=== PATIENT | male | born 1940 | race Caucasian/White ===

== ENCOUNTER 2018-11-03 14:56 | Emergency (ER) | payer MEDICARE ==
--- OUTSIDE RECORDS SUMMARY | 2018-11-03 15:11 | XMS REPORT | Continuity of Care Document ---
:1940 External Reference #:[id number] Author Name Taty Hernandez Care Team Providers Name Role Phone Kraig Donovan MD Primary Care Physician Unavailable Payers Type Date Identification Numbers Payment Provider Subscriber Policy Number: [id number] Medicare Eyal Pizarro PayID: [id number] [address] [place] [address] Policy Number: [id number] [facility] Eyal Pizarro PayID: [id number] [facility] [address] [place] [address] Expires: 2018 Policy Number: [id number] Medicare Eyal Pizarro PayID: [id number] [address] [place] [address] Expires: 2018 Policy Number: [id number] [employer] Eyal Pizarro Group Name: [id number] [address] [address] PayID: [id number] Attn: [place] [address] Expires: 2014 Policy Number: [id number] [employer] Eyal Pizarro Group Number: [id number] [address] [address] PayID: [id number] [place] [address] Effective: 2005 PayID: [id number] Medicare Eyal Pizarro Expires: 2016 [address] [place] [address] Advance Directives Type Date Description Status Comment Other Directive 09/08/2016 Health Care Proxy Current and Verified Problems Date Description Provider Status Onset: 04/21/2011 Atresia and stenosis of aorta Kraig D. 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 Active Onset: 04/15/2010 Aortic valve disorder Kraig Donovan Inactive Katrina,FACP Inactive: 05/17/2013 Onset: 02/14/2008 Disorder of shoulder Kraig Donovan M.D.,FACP Inactive Inactive: 05/17/2013 Onset: 02/14/2008 Carotid artery occlusion Kraig Donovan M.D.,FACP Inactive Inactive: 05/19/2015 Onset: 04/24/2012 Hypercalcemia Kraig Donovan M.D.,FACP Inactive Inactive: 05/19/2015 Onset: 07/16/2015 Strain of muscle(s) and tendon(s) of the Vivek Pedersen M.D. Inactive rotator cuff of right shoulder, subsequent encounter Inactive: 06/03/2016 Onset: 09/20/2017 Pain in limb Ricardo Weaver M.D. Inactive Inactive: 05/21/2018 Onset: 08/15/2012 Carpal tunnel syndrome Elly George N.P. Resolved Resolved: 05/17/2013 Onset: 06/29/2015 Late effect of open wound of extremities Vivek Pedersen M.D. Resolved without tendon injury Resolved: 05/21/2018 Family History Date Family Member(s) Problem(s) Comments General Diabetes General Heart Disease Onset: (age 48 Years) Father Heart Disease : (age 61 Years) Father due to Heart Disease : (age 95 Years) Mother due to Heart Disease Siblings 4 3 now Second Brother Diabetes, Non Insulin Dependent : (age 51 Years) Second Brother due to Motor Vehicle Accident Social History Type Date Description Comments Sex Unknown Marital Status Patient is retired from [employer]. Lives With Occupation Retired Cigarette Use Quit 40 Years Ago Pt denies ever smoking a pipe, cigars, or e-cigarettes. Pt denies ever using chewing tobacco. ETOH Use Denies alcohol use Recreational Drug Use Denies Drug Use Tobacco Use Start: Unknown End: Patient is a former quit in 1967 1ppd Unknown smoker Smoking Status Reviewed: 10/26/18 Patient is a former quit in 1967 1ppd smoker Exercise Type/Frequency Exercises sporadically Allergies, Adverse Reactions, Alerts Date Description Reaction Status Severity Comments 02/13/2008 Bee Stings Anaphylaxis Active Severe 02/13/2008 Sudafed Urticaria Active Severe urinary hesitancy Medications Medication Date Status Form Strength Qnty SIG Indications Ordering Provider Trazodone HCL 10/17 Active Tablets 50mg 30tab /2 till s tablet at Sorenson, bedtime as MAlex needed Shingrix 05/21 Active Suspension 50mcg 2unit 0.5 Rec s milliliters lennie Sousa M.D.,FACP now and 2-3 months later repeat Mobic 11/23 Active Tablets 15mg 90tab take 1 tablet s every day Clayton Donovan M.D.,FACBeth Epipen 2-Fredi 06/03 Active Solution 0.3mg/0.3 2unit use as Z91.030 Auto-Inject ML s directed Clayton Donovan M.D.,FACP Atorvastatin 06/02 Active Tablets 40mg 90tab 1 by mouth s every day Clayton Donovan M.D.,[facility] Flomax 05/19 Active Capsules 0.4mg 90cap take 1 N40.0 s capsule every Clayton Donovan, day M.DYuniel,[facility] Aspirin 04/15 Active Tablets 81mg 2 po qd Clayton Donovan M.D.,[facility] Vitamin D3 Active Capsules 1000Unit 1 by mouth Unknown High Potency / every day Vitamin B12 Active 5000mcg 1 tablet po Unknown daily Vitamin C Active Tablets 500mg 1 by mouth Unknown every day Percocet 09/27 Hx Tablets 5-325mg 10tab 1 tab by Ann s mouth 3 times Sorenson, - a day as M.D. 10/14 needed for severe pain Fluticasone 07/23 Hx Suspension 50mcg/Act 16uni 2 sprays each J30.89 Evangelist ts nostril qd. ANDERS Li - 09/27 Prednisone 08/10 Hx Tablets 50mg 3tabs 1 tab po 7, and 1 hr Clayton Donovan, - prior to CT M.DYuniel,[facility] 05/21 Benadryl 08/10 Hx Capsules 25mg 2 tabs [address] Clayton Donovan, - M.D.,[facility] 07/23 Tylenol 07/14 Hx Tablets 325mg 120ta 2 tablets bs every 4 hours ANDERS Li - as needed 07/23 pain (pt taking 650mg) Voltaren 03/15 Hx Gel 1% 300gm apply 4 grams M79.604 Evangelist of gel twice ANDERS Li - daily to the 07/14 affected areas for 7 days. Miralax 10/14 Hx Powder 3350NF 510un 17 gm every its day mixed w/ Clayton Donovan, - 8 oz M.D.,FACP 07/23 water/juice Prednisone 06/01 Hx Tablets 10mg 4 tabs tomorrow, - then decrease 06/08 by until stopped. Medrol 04/12 Hx Tablets 4mg 1pak medrol dosepack as Clayton Donovan, - directed Katrina,[facility] 06/03 Diclofenac-Mis 10/[address] 75-0.2mg 30tab 1 tab by S46.021A Francheska oprostol s mouth twice a Yaseen, - day with food MD 06/03 Mobic 10/27 Hx Tablets 15mg 60tab 1 by mouth s every day ( Clayton Donovna, - pt does not M.DYuniel,[facility] 07/19 take) Ciprofloxacin 09/28 Hx Tablets 500mg 1 tab by Unknown mouth twice a - day x 10 days 10/08 Metronidazole 09/28 Hx Tablets 500mg one tablet by Unknown mouth 3 times - daily for 10 Vitamin B 12 05/25 Hx Lozenges 250mcg by mouth every day ( Clayton Donovan, - taking 500mcg M.D.,[facility] 09/19 daily) Gabapentin 05/19 Hx Capsules 100mg 180ca 2 tab by ps mouth every Clayton Donovan, - night at M.D.,[facility] 11/20 bedtime, increase to 3 tabs every night at bedtime if not effective Fluticasone 09/01 Hx Suspension 50mcg/Act 1bott 1 spray each 477.9 le nostril in in Clayton Donovan, - the morning M.DYuniel,[facility] 10/14 Zyrtec Allergy 09/01 Hx Tablets 10mg 90tab 1 tab every 477.9 s day as needed Toni Sousa M.D.,[facility] 10/14 Medrol Dosepak 05/22 Hx Tablets 4mg 1Pak as directed Toni Sousa M.D.,[facility] 05/22 Medrol (Fredi) 05/22 Hx Tablets 4mg 1tabs as directed Toni Sousa M.D.,[facility] 09/01 Voltaren 11/14 Hx Gel 1% 100g apply 2 gms 719.44 to affected Clayton Donovan, - area bid prn Katrina,[facility] 05/19 Medrol Dosepak 05/30 Hx Tablets 4mg 1Pak as directed Toni Sousa M.D.,[facility] 11/14 Levitra 05/17 Hx Tablets 20mg 12tab 1 tablet po 607.84 s qd prn Toni Sousa M.D.,[facility] 01/22 Prednisone 05/18 Hx Tablets 10mg 50tab 6 tabs qd for s 2 days, then Clayton Donovan, - reduce by 1 MAlex,[facility] 08/15 tab every days until finished Nystatin/Triam 04/24 Hx Ointment 191536-5. 60g topical bid 692.89 1Unit/GM- prn Clayton Donovan - % Katrina,[facility] 08/15 Medrol Dosepak 04/17 Hx Tablets 4mg 1Pak as directed Toni Sousa M.D.,[facility] 04/24 Cialis 09/07 Hx Tablets 10mg 10tab qd prn 607.84 s Toni Sousa M.D.,[facility] 05/17 Simvastatin 04/21 Hx Tablets 10mg 90tab take 1 tablet 272.0 s daily at [facility], - bedtime 06/23 Celebrex 04/01 Hx Capsules 200mg po bid Toni Sousa M.D.,[facility] 04/21 Simcor 04/15 Hx Tablets ER 500-20mg 90tab 1 po qpm 272.0 24HR Toni Amanda M.D.,[facility] 04/21 Cialis 02/13 Hx Tablets 10mg 10tab qd prn s Toni Sousa M.D.,[facility] 04/21 Bactroban 02/13 Hx Ointment 2% 30G qd for 1 wk,then prn Toni Sousa M.D.,[facility] 04/21 Slo-Niacin 02/12 Hx Tablets ER 500mg 1 PO qd Toni Sousa M.D.,[facility] 04/15 Lovastatin Hx Tablets 40mg 30tab 1 tablet po 272.0 Kraig / s qhs Toni Sousa M.D.,[facility] 04/15 Asa 00/ Hx 81mg 90uni 2 PO qd Unknown /0000 ts - 04/15 Calcium-Vitami Hx Tablets 600-800 1 tab daily Unknown n D3 / - 11/14 Glucosamine/Ch Hx Capsules 900mg 2 PO qd Unknown ondroitin / - 06/09 Epipen Hx Device 1:1000 1unit one injection s as needed Toni Sousa M.D.,[facility] 09/08 Multivitamins 00/ Hx Tablets 90tab 1 PO qd Unknown /0000 s - 05/17 Slo-Niacin Hx Tablets ER 500mg po qday Unknown / - 08/11 Fish Oil Hx Capsules 700mg 2 po qd Unknown /0000 - 10/09 Vitamin D3 00/ Hx Tablets 2000Unit daily Unknown Super Strength / - 05/19 Vitamin C Hx Tablets 500mg 90tab 1 by mouth Unknown / s every day - 05/15 Vitamin E 00/00 Hx 1 cap po Unknown /0000 daily - 06/03 Glucosamine / Hx 1 tab po Unknown Chondroitin /0000 daily - 10/09 Ibuprofen PM 00 Hx Tablets 200-38mg 1 po qhs Unknown /0000 - 06/03 Polyethylene 00/ Hx Powder 3350NF 17gm powder Unknown Glycol 3350 /0000 with 4 ounces - water or 10/05 juice daily /2014 Potassium Hx Tablets 99mg otc once a Unknown / day - 07/14 Arthritis Pain Hx Tablets ER 650mg prn Unknown /0000 - 07/23 Acetaminophen- Hx Tablets 300-30mg 2 q 4hours Unknown Codeine #3 /0000 currenlty---- - Take 1 Tablet 10/14 By Mouth Times Daily as Needed Maximum Daily Dose Of 4 Per Day Acetaminophen- 00 Hx Tablets 300-30mg Take 1 Tablet Unknown Codeine #3 /0000 By Mouth Four - Times Daily 10/14 as Needed Maximum Daily Dose Of 4 Per Day Medications Administered in Office Medication Date Status Form Strength Qnty SIG Indications Ordering Provider Triamcinolone 07/20/ Administered Injection Zaneb (Kenalog) 2016 MD Yessenia Triamcinolone 10/27/ Administered Injection Zaneb (Kenalog) 2015 MD Yessenia Depomedrol 80MG 07/16/ Administered Injection Vivek 2014 Katrina Pederesn Technetium TC 06/23/ Administered Injection Jerrell S. 99M Tetrofosmin, 2014 DO Nilay Per Unit Dose Up FACC To 40 Millicuries Depomedrol 80MG 02/23/ Administered Injection Vivek 2014 Katrina Pedersen Immunizations CPT Code Status Date Vaccine Lot # [id number] Given 08/03/2018 Fluzone High Dose 15916 Given 06/23/2018 Zoster (Shingles) Vaccine (HZV), Recombinant, Subunit, Adjuvanted 91280 Given 07/28/2017 Influenza Virus Vaccine, Quadrivalent, Split, Preservative Free 01291 Given 05/15/2016 Fluzone High Dose 97299 Given 08/23/2015 Fluzone High Dose 51368 Given 05/19/2015 Pneumococcal Conjugate Vaccine 13 Valent For [id number] Intramuscular Use 41198 Given 07/30/2014 Flu Vaccine Split Virus Preservative Free For Indiv 3Yr Older Q2037 Given 05/30/2013 Fluvirin Im 3Yrs And Older 94142 Given 08/19/2012 Influenza Virus 3Yrs & Over 92301 Given 03/06/2012 Tdap - Tetanus/Diptheria/Acellular Pertussis [id number] Q2035 Given 08/11/2011 Afluria Vaccine 56804 Given 03/12/2009 Zoster (Zostavax) [id number] 77022 Given 07/28/2005 Pneumonia Vaccine Vital Signs Date Vital Result Comment 10/26/2018 10:59am Height 70.75 inches 5'10.75" Weight 172.00 lb Heart Rate 62 /min BP Systolic Sitting 120 mmHg Lue reg cuff BP Diastolic Sitting 65 mmHg Lue reg cuff BP Systolic Standing 115 mmHg Lue reg cuff BP Diastolic Standing 65 mmHg Lue reg cuff O2 % BldC Oximetry 100 % BMI (Body Mass Index) 24.2 kg/m2 10/16/2018 12:02pm Height 70.75 inches 5'10.75" Weight 172.00 lb Heart Rate 69 /min BP Systolic Sitting 128 mmHg BP Diastolic Sitting 60 mmHg O2 % BldC Oximetry 96 % BMI (Body Mass Index) 24.2 kg/m2 10/15/2018 2:38pm Height 70.75 inches 5'10.75" Weight 171.00 lb with shoes Heart Rate 76 /min BP Systolic 120 mmHg Lue BP Diastolic 68 mmHg Lue BMI (Body Mass Index) 24.0 kg/m2 Ejection Fraction >65% 11/28/17 ECHO 09/27/2018 1:23pm Height 70.75 inches 5'10.75" Weight 175.00 lb Heart Rate 64 /min BP Systolic Sitting 110 mmHg BP Diastolic Sitting 68 mmHg Pain Level 9 O2 % BldC Oximetry 93 % BMI (Body Mass Index) 24.6 kg/m2 07/23/2018 4:26pm Height 70.75 inches 5'10.75" Weight 180.50 lb Heart Rate 74 /min BP Systolic 90 mmHg BP Diastolic 58 mmHg BP Systolic Sitting 122 mmHg BP Diastolic Sitting 70 mmHg BP Systolic Standing 100 mmHg BP Diastolic Standing 60 mmHg BP Systolic Lying Down 122 mmHg BP Diastolic Lying Down 74 mmHg Body Temperature 97.2 F O2 % BldC Oximetry 93 % BMI (Body Mass Index) 25.4 kg/m2 05/21/2018 12:54pm Height 70.75 inches 5'10.75" Weight 180.00 lb Heart Rate 79 /min BP Systolic Sitting 110 mmHg BP Diastolic Sitting 68 mmHg Body Temperature 96.4 F O2 % BldC Oximetry 94 % BMI (Body Mass Index) 25.3 kg/m2 03/12/2018 10:38am Height 70 inches 5'10" Weight 184.75 lb Heart Rate 64 /min BP Systolic 110 mmHg BP Diastolic 58 mmHg Respiratory Rate 20 /min Body Temperature 97.0 F Pain Level 0 BMI (Body Mass Index) 26.5 kg/m2 02/06/2018 9:26am Weight 183.00 lb Heart Rate 60 /min BP Systolic 106 mmHg BP Diastolic 62 mmHg Body Temperature 97.2 F O2 % BldC Oximetry 95 % 12/18/2017 9:02am Weight 183.25 lb Heart Rate 59 /min BP Systolic 100 mmHg BP Diastolic 60 mmHg Body Temperature 96.6 F O2 % BldC Oximetry 92 % 10/20/2017 1:29pm Height 70 inches 5'10" Weight 183.00 lb with shoes Heart Rate 80 /min BP Systolic Sitting 124 mmHg Lue reg cuff BP Diastolic Sitting 60 mmHg Lue reg cuff BP Systolic Standing 120 mmHg Lue regcuff BP Diastolic Standing 66 mmHg Lue regcuff Respiratory Rate 16 /min BMI (Body Mass Index) 26.3 kg/m2 Ejection Fraction 65-70% date 07/14/2016 09/20/2017 2:09pm Height 70 inches 5'10" Weight 183.25 lb with out shoes Heart Rate 66 /min BP Systolic Sitting 110 mmHg Rue reg cuff BP Diastolic Sitting 60 mmHg Rue reg cuff Respiratory Rate 17 /min BMI (Body Mass Index) 26.3 kg/m2 Ejection Fraction 65-70% date 07/14/2016 echo 07/20/2017 10:38am Height 70 inches 5'10" Weight 189.00 lb Heart Rate 70 /min BP Systolic 102 mmHg BP Diastolic 54 mmHg BMI (Body Mass Index) 27.1 kg/m2 07/14/2017 9:08am Weight 188.00 lb Heart Rate 60 /min BP Systolic Sitting 126 mmHg BP Diastolic Sitting 72 mmHg Pain Level 6 legs O2 % BldC Oximetry 96 % 05/15/2017 12:55pm Height 71 inches 5'11" Weight 186.25 lb Heart Rate 69 /min BP Systolic Sitting 114 mmHg BP Diastolic Sitting 60 mmHg Body Temperature 97.1 F O2 % BldC Oximetry 97 % BMI (Body Mass Index) 26.0 kg/m2 03/15/2017 3:22pm Weight 190.00 lb Heart Rate 64 /min BP Systolic Sitting 104 mmHg BP Diastolic Sitting 60 mmHg Pain Level 8 R hamstring when moving (3-4 otherwise) O2 % BldC Oximetry 95 % 03/07/2017 11:47am Weight 191.00 lb Heart Rate 70 /min BP Systolic Sitting 122 mmHg BP Diastolic Sitting 84 mmHg Respiratory Rate 15 /min Body Temperature 97.0 F O2 % BldC Oximetry 98 % 10/20/2016 11:28am Weight 190.00 lb w/o shoes Heart Rate 67 /min BP Systolic Sitting 106 mmHg Ra lrg cuff BP Diastolic Sitting 70 mmHg Ra lrg cuff BP Systolic Standing 98 mmHg Ra lrg cuff BP Diastolic Standing 66 mmHg Ra lrg cuff Ejection Fraction 65% -70% echo 07/14/16 10/14/2016 3:29pm Weight 188.25 lb Heart Rate 68 /min BP Systolic Sitting 118 mmHg BP Diastolic Sitting 60 mmHg Body Temperature 97.2 F O2 % BldC Oximetry 96 % 09/08/2016 11:57am Weight 191.50 lb Heart Rate 73 /min BP Systolic Sitting 130 mmHg BP Diastolic Sitting 62 mmHg Body Temperature 96.9 F O2 % BldC Oximetry 95 % 08/23/2016 1:51pm Height 70 inches 5'10" Weight 194.00 lb Pain Level 2 BMI (Body Mass Index) 27.8 kg/m2 07/19/2016 9:45am Height 70 inches 5'10" Weight 192.00 lb with shoes Heart Rate 64 /min BP Systolic Sitting 124 mmHg Ra reg cuff BP Diastolic Sitting 60 mmHg Ra reg cuff BP Systolic Standing 122 mmHg Ra reg cuff BP Diastolic Standing 64 mmHg Ra reg cuff Respiratory Rate 16 /min BMI (Body Mass Index) 27.5 kg/m2 Ejection Fraction 65-70% date: 07/14/16 ECHO 06/03/2016 2:19pm Height 70 inches 5'10" Weight 187.38 lb Heart Rate 76 /min BP Systolic Sitting 128 mmHg BP Diastolic Sitting 74 mmHg Body Temperature 98.3 F O2 % BldC Oximetry 95 % BMI (Body Mass Index) 26.9 kg/m2 11/20/2015 2:50pm Height 70.5 inches 5'10.50" Weight 185.50 lb Heart Rate 75 /min BP Systolic Sitting 110 mmHg BP Diastolic Sitting 66 mmHg Body Temperature 97.1 F O2 % BldC Oximetry 98 % BMI (Body Mass Index) 26.2 kg/m2 10/27/2015 11:09am Height 70.5 inches 5'10.50" Weight 192.00 lb Heart Rate 76 /min BP Systolic Sitting 107 mmHg BP Diastolic Sitting 60 mmHg Respiratory Rate 16 /min Pain Level 3 BMI (Body Mass Index) 27.2 kg/m2 10/05/2015 1:50pm Height 70.5 inches 5'10.50" Weight 192.00 lb Heart Rate 74 /min BP Systolic Sitting 132 mmHg BP Diastolic Sitting 78 mmHg Body Temperature 96.4 F O2 % BldC Oximetry 98 % BMI (Body Mass Index) 27.2 kg/m2 08/13/2015 1:33pm Height 70 inches 5'10" Weight 186.00 lb Pain Level 1 BMI (Body Mass Index) 26.7 kg/m2 07/17/2015 2:03pm Height 70 inches 5'10" Weight 189.00 lb Heart Rate 68 /min BP Systolic Sitting 126 mmHg left arm, reg cuff BP Diastolic Sitting 74 mmHg left arm, reg cuff BP Systolic Standing 124 mmHg left arm, reg cuff BP Diastolic Standing 78 mmHg left arm, reg cuff Respiratory Rate 16 /min BMI (Body Mass Index) 27.1 kg/m2 Ejection Fraction 60-65% 06/03/15 07/16/2015 11:03am Height 70 inches 5'10" Weight 186.00 lb Pain Level 2 BMI (Body Mass Index) 26.7 kg/m2 07/07/2015 2:23pm Height 70 inches 5'10" Weight 187.00 lb Heart Rate 68 /min 76 BP Systolic Sitting 110 mmHg right arm, reg cuff BP Diastolic Sitting 74 mmHg right arm, reg cuff BP Systolic Standing 96 mmHg right arm, reg cuff BP Diastolic Standing 68 mmHg right arm, reg cuff Respiratory Rate 20 /min BMI (Body Mass Index) 26.8 kg/m2 Ejection Fraction 60-65% 06/03/15 07/06/2015 10:37am Height 70 inches 5'10" Weight 185.00 lb Heart Rate 64 /min BP Systolic Sitting 100 mmHg BP Diastolic Sitting 60 mmHg Respiratory Rate 16 /min BMI (Body Mass Index) 26.5 kg/m2 07/02/2015 2:11pm Height 70 inches 5'10" Weight 185.00 lb w/o shoes Heart Rate 78 /min reg BP Systolic Sitting 120 mmHg Lue, reg cuff BP Diastolic Sitting 76 mmHg Lue, reg cuff BP Systolic Standing 126 mmHg Lue BP Diastolic Standing 74 mmHg Lue Respiratory Rate 18 /min BMI (Body Mass Index) 26.5 kg/m2 Ejection Fraction 60-65% as of 06/03/15 echo 06/29/2015 11:00am Height 70 inches 5'10" Weight 186.00 lb Pain Level 3 BMI (Body Mass Index) 26.7 kg/m2 06/24/2015 3:44pm Height 70 inches 5'10" Weight 186.00 lb w/o shoes Heart Rate 62 /min reg BP Systolic Sitting 116 mmHg Rue, reg cuff BP Diastolic Sitting 72 mmHg Rue, reg cuff BP Systolic Standing 114 mmHg Rue BP Diastolic Standing 66 mmHg Rue Respiratory Rate 18 /min O2 % BldC Oximetry 97 % on Ra BMI (Body Mass Index) 26.7 kg/m2 Ejection Fraction 60-65% as of 06/03/15 echo 06/02/2015 10:31am Height 70 inches 5'10" Weight 186.00 lb w/o shoes Heart Rate 64 /min reg BP Systolic 114 mmHg Rue, reg cuff BP Diastolic 70 mmHg Rue, reg cuff BP Systolic Sitting 122 mmHg Lue, reg cuff BP Diastolic Sitting 60 mmHg Lue, reg cuff BP Systolic Standing 124 mmHg Lue BP Diastolic Standing 66 mmHg Lue Respiratory Rate 18 /min BMI (Body Mass Index) 26.7 kg/m2 05/19/2015 11:26am Height 71 inches 5'11" Weight 186.00 lb Heart Rate 66 /min BP Systolic Sitting 126 mmHg BP Diastolic Sitting 80 mmHg O2 % BldC Oximetry 94 % BMI (Body Mass Index) 25.9 kg/m2 05/14/2015 9:26am Height 71 inches 5'11" Weight 180.00 lb Pain Level 3 8 at night BMI (Body Mass Index) 25.1 kg/m2 02/23/2015 11:40am Height 71 inches 5'11" Weight 180.00 lb Pain Level 5 BMI (Body Mass Index) 25.1 kg/m2 09/01/2014 1:20pm Weight 177.50 lb Heart Rate 66 /min BP Systolic Sitting 126 mmHg BP Diastolic Sitting 70 mmHg Body Temperature 97.4 F O2 % BldC Oximetry 93 % 06/10/2014 9:32am Height 71 inches 5'11" Weight 179.00 lb Heart Rate 63 /min BP Systolic 98 mmHg BP Diastolic 58 mmHg BMI (Body Mass Index) 25.0 kg/m2 05/19/2014 9:31am Height 71 inches 5'11" Weight 179.50 lb Heart Rate 72 /min BP Systolic Sitting 122 mmHg BP Diastolic Sitting 58 mmHg Body Temperature 96.8 F BMI (Body Mass Index) 25.0 kg/m2 01/22/2014 11:32am Weight 186.50 lb Heart Rate 60 /min BP Systolic Sitting 134 mmHg BP Diastolic Sitting 72 mmHg 11/14/2013 3:43pm Height 71 inches 5'11" Weight 186.50 lb Heart Rate 64 /min BP Systolic Sitting 112 mmHg BP Diastolic Sitting 70 mmHg BMI (Body Mass Index) 26.0 kg/m2 05/17/2013 12:56pm Height 71 inches 5'11" Weight 190.50 lb Heart Rate 76 /min BP Systolic Sitting 118 mmHg BP Diastolic Sitting 64 mmHg BMI (Body Mass Index) 26.6 kg/m2 11/19/2012 3:28pm Height 71 inches 5'11" Weight 191.75 lb Heart Rate 78 /min BP Systolic Sitting 130 mmHg BP Diastolic Sitting 78 mmHg BMI (Body Mass Index) 26.7 kg/m2 08/15/2012 1:35pm Height 71 inches 5'11" Weight 191.00 lb Heart Rate 60 /min BP Systolic Sitting 116 mmHg BP Diastolic Sitting 72 mmHg Respiratory Rate 16 /min Body Temperature 97.5 F lt ear BMI (Body Mass Index) 26.6 kg/m2 04/24/2012 9:25am Height 71 inches 5'11" Weight 184.00 lb Heart Rate 66 /min BP Systolic Sitting 118 mmHg BP Diastolic Sitting 78 mmHg Respiratory Rate 14 /min Body Temperature 96.6 F lt ear BMI (Body Mass Index) 25.7 kg/m2 03/06/2012 7:59am Height 71 inches 5'11" Weight 185.00 lb Heart Rate 68 /min BP Systolic Sitting 112 mmHg BP Diastolic Sitting 68 mmHg BMI (Body Mass Index) 25.8 kg/m2 09/07/2011 11:06am Height 71 inches 5'11" Weight 187.00 lb Heart Rate 72 /min BP Systolic Sitting 124 mmHg BP Diastolic Sitting 68 mmHg BMI (Body Mass Index) 26.1 kg/m2 08/11/2011 1:03pm Height 71 inches 5'11" Weight 185.00 lb Heart Rate 68 /min BP Systolic Sitting 130 mmHg BP Diastolic Sitting 70 mmHg BMI (Body Mass Index) 25.8 kg/m2 04/21/2011 2:12pm Height 71 inches 5'11" Weight 183.00 lb Heart Rate 68 /min BP Systolic 106 mmHg BP Diastolic 60 mmHg BMI (Body Mass Index) 25.5 kg/m2 01/11/2011 9:29am Weight 190.00 lb Heart Rate 68 /min BP Systolic Sitting 116 mmHg BP Diastolic Sitting 60 mmHg 04/15/2010 9:05am Weight 179.00 lb Heart Rate 74 /min BP Systolic Sitting 114 mmHg BP Diastolic Sitting 64 mmHg 03/06/2009 1:03pm Weight 187.00 lb Heart Rate 64 /min BP Systolic Sitting 132 mmHg BP Diastolic Sitting 84 mmHg 02/14/2008 9:06am Height 70.5 inches 5'10.50" Weight 182.00 lb Heart Rate 70 /min BP Systolic Sitting 112 mmHg BP Diastolic Sitting 60 mmHg BMI (Body Mass Index) 25.7 kg/m2 Results Test Date Facility Test Result H/L Range Note Laboratory test 10/16/2018 [facility] PTH Related 0.5 pmol/L <2.0 [address] [place] [address] [phone] CBC Auto Diff 10/16/2018 [facility] White Blood 5.0 10^3/uL N 3.5-10.[address] [place] [address] [phone] Red Blood Count 4.01 10^6/uL N 4.00-5.40 Hemoglobin 13.3 g/dL Low 14.0-18.0 Hematocrit 38 % Low 42-52 Mean Corpuscular Volume 95 fL High 80-94 Mean Corpuscular Hemoglobin 33 pg High 27-31 Mean Corpuscular HGB Conc 35 g/dL N 31-36 Red Cell Distribution Width 12 % N 10.5-15 Platelet Count 216 10^3/uL N 150-450 Mean Platelet Volume 8.1 fL N 7.4-10.4 Abs Neutrophils 2.5 10^3/uL N 1.5-7.7 Abs Lymphocytes 1.4 10^3/uL N 1.0-4.8 Abs Monocytes 0.9 10^3/uL High 0-0.8 Abs Eosinophils 0.2 10^3/uL N 0-0.6 Abs Basophils 0 10^3/uL N 0-0.2 Abs Nucleated RBC 0 10^3/uL Granulocyte % 50.6 % Lymphocyte % 28.7 % Monocyte % 17.1 % Eosinophil % 3.1 % Basophil % 0.5 % Nucleated Red Blood Cells % 0.1 Comp Metabolic Panel 10/16/2018 [facility] Sodium 139 mmol/L N 135-[address] [place] [address] [phone] Potassium 4.4 mmol/L N 3.5-5.0 Chloride 107 mmol/L N 101-111 Co2 Carbon Dioxide 28 mmol/L N 22-32 Anion Gap 4 mmol/L N 2-11 Glucose 89 mg/dL N 70-100 Blood Urea Nitrogen 21 mg/dL N 6-24 Creatinine 0.77 mg/dL N 0.67-1.17 BUN/Creatinine Ratio 27.3 High 8-20 Calcium 11.0 mg/dL High 8.6-10.3 Total Protein 6.7 g/dL N 6.4-8.9 Albumin 4.4 g/dL N 3.2-5.2 Globulin 2.3 g/dL N 2-4 Albumin/Globulin Ratio 1.9 N 1-3 Total Bilirubin 0.50 mg/dL N 0.2-1.0 Alkaline Phosphatase 65 U/L N 34-104 Alt 18 U/L N 7-52 Ast 15 U/L N 13-39 Egfr Non- 97.7 >60 Egfr 118.2 >60 2 Laboratory test 10/16/2018 [facility] C Reactive 1.26 mg/L N < 8.[address] [place] [address] [phone] Troponin-I (TnI) 0.01 ng/mL <0.04 3 TSH (Thyroid Stim Horm) 1.34 mcIU/mL N 0.34-5.60 Vitamin B12 710 pg/mL N 180-914 4 Pthi 10/16/2018 [facility] Calcium (PTH Intact) 11.0 mg/dL High 8.6-10.[address] [place] [address] [phone] PTH Intact 16.3 pmol/L High 1.3-9.3 Inr/Protime 10/16/2018 [facility] Inr 0.94 N 0.77-1.[address] [place] [address] [phone] Protein 10/16/2018 [facility] Total 6.7 g/dL 6.3 - 7.[address] Protein([place] [address] p) [phone] Albumin 3.6 g/dL 3.4-4.7 Alpha-1 Globulin 0.3 g/dL 0.1-0.3 Alpha-2 Globulin 1.1 g/dL Abnormal 0.6-1.0 Beta Globulin 1.0 g/dL 0.7-1.2 Gamma Globulin 0.8 g/dL 0.6-1.6 Albumin/Globulin Ratio 1.15 Impression See Comment 5 Laboratory test 10/16/2018 [facility] Hemoglobin A1c 5.6 % N 4.0-5.6 [address] (Glyco HGB) [place], [place] [id number] [phone] Lactic Acid 0.9 mmol/L N 0.5-2.0 7 Calcium Ionized 1.47 mmol/L High 1.16-1.32 Blood Culture SEE RESULT BELOW 8 CBC Auto Diff 10/15/2018 [facility] White Blood 6.5 10^3/uL N 3.5-10.[address] [place] [address] [phone] Red Blood Count 4.11 10^6/uL N 4.00-5.40 Hemoglobin 13.4 g/dL Low 14.0-18.0 Hematocrit 39 % Low 42-52 Mean Corpuscular Volume 96 fL High 80-94 Mean Corpuscular Hemoglobin 33 pg High 27-31 Mean Corpuscular HGB Conc 34 g/dL N 31-36 Red Cell Distribution Width 12 % N 10.5-15 Platelet Count 240 10^3/uL N 150-450 Mean Platelet Volume 8.2 fL N 7.4-10.4 Abs Neutrophils 3.4 10^3/uL N 1.5-7.7 Abs Lymphocytes 1.5 10^3/uL N 1.0-4.8 Abs Monocytes 1.4 10^3/uL High 0-0.8 Abs Eosinophils 0.2 10^3/uL N 0-0.6 Abs Basophils 0 10^3/uL N 0-0.2 Abs Nucleated RBC 0 10^3/uL Granulocyte % 52.6 % Lymphocyte % 23.5 % Monocyte % 20.9 % Eosinophil % 2.5 % Basophil % 0.5 % Nucleated Red Blood Cells % 0 Laboratory test 10/15/2018 [facility] B-Type 40 pg/mL <=[address] [place] [address] Peptide BNP [phone] Comp Metabolic 10/15/2018 [facility] Sodium 139 mmol/L N 135- [address] [place] [address] [phone] Chloride 106 mmol/L N 101-111 Co2 Carbon Dioxide 29 mmol/L N 22-32 Glucose 100 mg/dL N 70-100 Blood Urea Nitrogen 28 mg/dL High 6-24 Creatinine 0.92 mg/dL N 0.67-1.17 BUN/Creatinine Ratio 30.4 High 8-20 Calcium 11.1 mg/dL High 8.6-10.3 Total Protein 6.4 g/dL N 6.4-8.9 Albumin 4.5 g/dL N 3.2-5.2 Globulin 1.9 g/dL Low 2-4 Albumin/Globulin Ratio 2.4 N 1-3 Total Bilirubin 0.60 mg/dL N 0.2-1.0 Alkaline Phosphatase 68 U/L N 34-104 Alt 17 U/L N 7-52 Ast 14 U/L N 13-39 Egfr Non- 79.6 >60 Egfr 96.3 >60 9 Potassium 5.1 mmol/L High 3.5-5.0 Anion Gap 4 mmol/L N 2-11 Laboratory test 08/03/2018 [facility] Hemoglobin A1c 5.8 % High 4.0-5.6 [address] (Glyco HGB) [place] [address] [phone] CBC Auto Diff 07/24/2018 [facility] White Blood 5.1 N 3.5- 10.[address] Count 10^3/[place] [address] [phone] Red Blood Count 4.09 10^6/uL N 4.00-5.40 Hemoglobin 14.2 g/dL N 14.0-18.0 Hematocrit 41 % Low 42-52 Mean Corpuscular Volume 100 fL High 80-94 Mean Corpuscular Hemoglobin 35 pg High 27-31 Mean Corpuscular HGB Conc 35 g/dL N 31-36 Red Cell Distribution Width 13 % N 10.5-15 Platelet Count 183 10^3/uL N 150-450 Mean Platelet Volume 8.5 um3 N 7.4-10.4 Abs Neutrophils 3.2 10^3/uL N 1.5-7.7 Abs Lymphocytes 1.0 10^3/uL N 1.0-4.8 Abs Monocytes 0.7 10^3/uL N 0-0.8 Abs Eosinophils 0.2 10^3/uL N 0-0.6 Abs Basophils 0 10^3/uL N 0-0.2 Abs Nucleated RBC 0 10^3/uL Granulocyte % 62.5 % N 38-83 Lymphocyte % 19.7 % Low 25-47 Monocyte % 13.7 % High 0-7 Eosinophil % 3.1 % N 0-6 Basophil % 1.0 % N 0-2 Nucleated Red Blood Cells % 0 Comp Metabolic Panel 07/24/2018 [facility] Sodium 138 mmol/L N 135-[address] [place] [address] [phone] Potassium 4.6 mmol/L N 3.5-5.0 Chloride 103 mmol/L N 101-111 Co2 Carbon Dioxide 29 mmol/L N 22-32 Anion Gap 6 mmol/L N 2-11 Glucose 243 mg/dL High 70-100 Blood Urea Nitrogen 21 mg/dL N 6-24 Creatinine 1.05 mg/dL N 0.67-1.17 BUN/Creatinine Ratio 20.0 N 8-20 Calcium 10.4 mg/dL High 8.6-10.3 Total Protein 6.2 g/dL Low 6.4-8.9 Albumin 4.4 g/dL N 3.2-5.2 Globulin 1.8 g/dL Low 2-4 Albumin/Globulin Ratio 2.4 N 1-3 Total Bilirubin 0.70 mg/dL N 0.2-1.0 Alkaline Phosphatase 62 U/L N 34-104 Alt 25 U/L N 7-52 Ast 16 U/L N 13-39 Egfr Non- 68.3 >60 Egfr 82.7 >60 11 Laboratory 07/24/2018 [facility] TSH (Thyroid Stim 2.08 N 0.34 -5.[address] Horm) mcIU/[place] [address] [phone] Lipid Profile 05/17/2018 [facility] Triglycerides 174 mg/dL 12 (Trig/Chol/HDL [address] ) [place] [address] [phone] Cholesterol 176 mg/dL 13 HDL Cholesterol 59.0 mg/dL 14 LDL Cholesterol 82 mg/dL 15 Laboratory test finding 05/17/2018 [facility] Glucose 92 mg/dL N 70-[address] [place] [address] [phone] Vitamin D Total 25(Oh) 26.5 ng/mL N 20-50 17 Vitamin B12 907 pg/mL N 180-914 18 Laboratory test 10/24/2017 [facility] B-Type 38 pg/mL [address] [place] [address] Peptide BNP [phone] CBC Auto Diff 07/14/2017 [facility] White Blood Count 4.9 10^3/ uL N 3.5-[address] 0.8 [place] [address] [phone] Red Blood Count 4.03 10^6/uL N 4.0-5.4 Hemoglobin 13.5 g/dL Low 14.0-18.0 Hematocrit 39 % Low 42-52 Mean Corpuscular Volume 96 fL High 80-94 Mean Corpuscular Hemoglobin 34 pg High 27-31 Mean Corpuscular HGB Conc 35 g/dL N 31-36 Red Cell Distribution Width 12 % N 10.5-15 Platelet Count 191 10^3/uL N 150-450 Mean Platelet Volume 8 um3 N 7.4-10.4 Abs Neutrophils 2.5 10^3/uL N 1.5-7.7 Abs Lymphocytes 1.3 10^3/uL N 1.0-4.8 Abs Monocytes 0.9 10^3/uL High 0-0.8 Abs Eosinophils 0.2 10^3/uL N 0-0.6 Abs Basophils 0.1 10^3/uL N 0-0.2 Abs Nucleated RBC 0 10^3/uL N Granulocyte % 49.9 % N 38-83 Lymphocyte % 26.7 % N 25-47 Monocyte % 18.9 % High 1-9 Eosinophil % 3.4 % N 0-6 Basophil % 1.1 % N 0-2 Nucleated Red Blood Cells % 0 N Laboratory test 07/14/2017 [facility] Creatine 93 U/L N 10- [address] Kinase(CK) [place] [address] [phone] Comp Metabolic 07/14/2017 [facility] Sodium 136 N 133-[address] mmol/[place] [address] [phone] Potassium 4.5 mmol/L N 3.5-5.0 Chloride 103 mmol/L N 101-111 Co2 Carbon Dioxide 27 mmol/L N 22-32 Anion Gap 6 mmol/L N 2-11 Glucose 95 mg/dL N 70-100 Blood Urea Nitrogen 17 mg/dL N 6-24 Creatinine 0.92 mg/dL N 0.67-1.17 BUN/Creatinine Ratio 18.5 N 8-20 Calcium 9.8 mg/dL N 8.6-10.3 Total Protein 6.4 g/dL N 6.4-8.9 Albumin 4.3 g/dL N 3.2-5.2 Globulin 2.1 g/dL N 2-4 Albumin/Globulin Ratio 2.0 N 1-3 Total Bilirubin 0.80 mg/dL N 0.2-1.0 Alkaline Phosphatase 56 U/L N 34-104 Alt 23 U/L N 7-52 Ast 20 U/L N 13-39 Egfr Non- 79.8 N >60 Egfr 102.6 N >60 20 Laboratory test 07/14/2017 [facility] C Reactive 1.48 mg/L N < 5.00 21 finding [address] [facility] [place] [address] [phone] Erythrocyte Sed Rate 17 mm/Hr N 0-40 Lyme Disease Serology Negative N Negative 22 Ferritin 270.0 ng/mL N 24-336 Lipid Profile 05/18/2017 [facility] Triglycerides 108 mg/dL N 23 (Trig/Chol/HDL) [address] [place] [address] [phone] Cholesterol 133 mg/dL N 24 HDL Cholesterol 46.9 mg/dL N 25 LDL Cholesterol 65 mg/dL N 26 Basic Metabolic Panel 05/18/2017 [facility] Sodium 139 mmol/L N 133-145 [address] [place] [address] [phone] Potassium 4.9 mmol/L N 3.5-5.0 Chloride 105 mmol/L N 101-111 Co2 Carbon Dioxide 29 mmol/L N 22-32 Anion Gap 5 mmol/L N 2-11 Glucose 98 mg/dL N 70-100 Blood Urea Nitrogen 21 mg/dL N 6-24 Creatinine 0.95 mg/dL N 0.67-1.17 BUN/Creatinine Ratio 22.1 High 8-20 Calcium 9.7 mg/dL N 8.6-10.3 Egfr Non- 76.9 N >60 Egfr 98.9 N >60 27 Laboratory test 05/18/2017 [facility] Vitamin B12 883 pg/mL N 180-914 28 finding [address] [place] [address] [phone] CKMB 10/03/2016 [facility] CKMB ng/mL 1.7 ng/mL N 0.6-6.3 [address] [place] [address] [phone] Laboratory test 10/03/2016 [facility] Lipase 18 U/L N 11.0- 82.0 finding [address] [place] [address] [phone] Creatine Kinase(CK) 32 U/L N 10-223 Troponin-I (TnI) 0.00 ng/mL N <0.04 29 Myoglobin 37.7 ng/mL N 17.4-105.7 Comp Metabolic Panel 10/03/2016 [facility] Sodium 136 mmol/L N 133-145 [address] [place] [address] [phone] Potassium 4.2 mmol/L N 3.5-5.0 Chloride 103 mmol/L N 101-111 Co2 Carbon Dioxide 27 mmol/L N 22-32 Anion Gap 6 mmol/L N 2-11 Glucose 99 mg/dL N 70-100 Blood Urea Nitrogen 22 mg/dL N 6-24 Creatinine 1.08 mg/dL N 0.67-1.17 BUN/Creatinine Ratio 20.4 High 8-20 Calcium 9.2 mg/dL N 8.6-10.3 Total Protein 6.2 g/dL Low 6.4-8.9 Albumin 4.0 g/dL N 3.2-5.2 Globulin 2.2 g/dL N 2-4 Albumin/Globulin Ratio 1.8 N 1-3 Total Bilirubin 0.80 mg/dL N 0.2-1.0 Alkaline Phosphatase 67 U/L N 34-104 Alt 19 U/L N 7-52 Ast 17 U/L N 13-39 Egfr Non- 66.5 N >60 Egfr 85.5 N >60 30 Laboratory test 10/03/2016 [facility] Partial 29.0 seconds N 26.0-36.3 finding [address] [facility] [place] [address] PTT [phone] Lactic Acid 1.0 mmol/L N 0.5-2.0 31 B-Type Natriuretic Peptide BNP 12 pg/mL N 32 Inr/Protime 10/03/2016 [facility] Inr 1.01 N 0.89-1.[address] [place] [address] [phone] CBC Auto Diff 10/03/2016 [facility] White Blood 4.8 10^3/uL N 3.5-10.[address] [place] [address] [phone] Red Blood Count 4.71 10^6/uL N 4.0-5.4 Hemoglobin 15.3 g/dL N 14.0-18.0 Hematocrit 45 % N 42-52 Mean Corpuscular Volume 94 fL N 80-94 Mean Corpuscular Hemoglobin 33 pg High 27-31 Mean Corpuscular HGB Conc 35 g/dL N 31-36 Red Cell Distribution Width 12 % N 10.5-15 Platelet Count 192 10^3/uL N 150-450 Mean Platelet Volume 8 um3 N 7.4-10.4 Abs Neutrophils 3.2 10^3/uL N 1.5-7.7 Abs Lymphocytes 0.6 10^3/uL Low 1.0-4.8 Abs Monocytes 1.0 10^3/uL High 0-0.8 Abs Eosinophils 0 10^3/uL N 0-0.6 Abs Basophils 0 10^3/uL N 0-0.2 Abs Nucleated RBC 0 10^3/uL N Granulocyte % 66.0 % N 38-83 Lymphocyte % 11.6 % Low 25-47 Monocyte % 21.2 % High 1-9 Eosinophil % 0.9 % N 0-6 Basophil % 0.3 % N 0-2 Nucleated Red Blood Cells % 0 N Stool For Blood 10/03/2016 [facility] Stool Occult Blood SEE RESULT [address] [place] [address] [phone] Laboratory test 10/03/2016 [facility] Troponin-I (TnI) 0.01 ng/ mL N <0.04 [address] [place] [address] [phone] Lipid Profile 05/12/2016 [facility] Triglycerides 152 mg/dL N 35 (Trig/Chol/HDL) [address] [place] [address] [phone] Cholesterol 148 mg/dL N 36 HDL Cholesterol 52.0 mg/dL N 37 LDL Cholesterol 66 mg/dL N 38 Laboratory test 05/12/2016 [facility] Glucose 112 mg/dL High 70-100 39 finding [address] [place] [address] [phone] Comp Metabolic 09/28/2015 [facility] Sodium 138 mmol/L N 133- 145 Panel [address] [place] [address] [phone] Potassium 4.0 mmol/L N 3.5-5.0 Chloride 104 mmol/L N 101-111 Co2 Carbon Dioxide 27 mmol/L N 22-32 Anion Gap 7 mmol/L N 2-11 Glucose 98 mg/dL N 70-100 Blood Urea Nitrogen 12 mg/dL N 6-24 Creatinine 0.91 mg/dL N 0.67-1.17 BUN/Creatinine Ratio 13.2 N 8-20 Calcium 10.5 mg/dL High 8.6-10.3 Total Protein 7.7 g/dL N 6.4-8.9 Albumin 4.7 g/dL N 3.2-5.2 Globulin 3.0 g/dL N 2-4 Albumin/Globulin Ratio 1.6 N 1-3 Total Bilirubin 1.00 mg/dL N 0.2-1.0 Alkaline Phosphatase 69 U/L N 34-104 Alt 42 U/L N 7-52 Ast 19 U/L N 13-39 Egfr Non- 81.2 N >60 Egfr 104.5 N >60 40 Laboratory test 09/28/2015 [facility] Lactic Acid 1.0 mmol/L N 0.5-2.0 41 finding [address] [place] [address] [phone] CBC Auto Diff 09/28/2015 [facility] White Blood 12.7 High 3.5- 10.[address] Count 10^3/[place] [address] [phone] Red Blood Count 4.48 10^6/uL N 4.0-5.4 Hemoglobin 14.9 g/dL N 14.0-18.0 Hematocrit 44 % N 42-52 Mean Corpuscular Volume 99 fL High 80-94 Mean Corpuscular Hemoglobin 33 pg High 27-31 Mean Corpuscular HGB Conc 34 g/dL N 31-36 Red Cell Distribution Width 13 % N 10.5-15 Platelet Count 209 10^3/uL N 150-450 Mean Platelet Volume 8 um3 N 7.4-10.4 Abs Neutrophils 9.3 10^3/uL High 1.5-7.7 Abs Lymphocytes 1.3 10^3/uL N 1.0-4.8 Abs Monocytes 1.9 10^3/uL High 0-0.8 Abs Eosinophils 0.1 10^3/uL N 0-0.6 Abs Basophils 0.1 10^3/uL N 0-0.2 Abs Nucleated RBC 0 10^3/uL N Granulocyte % 73.4 % N 38-83 Lymphocyte % 10.1 % Low 25-47 Monocyte % 14.9 % High 1-9 Eosinophil % 1.0 % N 0-6 Basophil % 0.6 % N 0-2 Nucleated Red Blood Cells % 0 N Urinalysis Profile 09/28/2015 [facility] Urine Color Yellow N [address] [place] [address] [phone] Urine Appearance Clear N Urine Specific [place] 1.011 N 1.010-1.030 Urine pH 7.0 N 5-9 Urine Urobilinogen Negative N Negative Urine Ketones Negative N Negative Urine Protein Negative N Negative Urine Leukocytes Negative N Negative Urine Blood Negative N Negative Urine Nitrite Negative N Negative Urine Bilirubin Negative N Negative Urine Glucose Negative N Negative Laboratory test finding 09/28/2015 [facility] Lipase 19 U/L N 11.0-82.[address] [place] [address] [phone] C Reactive Protein 97.53 mg/L High < 5.00 42 CBC Auto 06/30/2015 [facility] White Blood 4.3 10^3/uL Low 4.8 -10.[address] [place] [address] [phone] Red Blood Count 4.29 10^6/uL N 4.0-5.4 Hemoglobin 14.3 g/dL N 14.0-18.0 Hematocrit 42 % N 42-52 Mean Corpuscular Volume 97 fL High 80-94 Mean Corpuscular Hemoglobin 33 pg High 27-31 Mean Corpuscular HGB Conc 34 g/dL N 31-36 Red Cell Distribution Width 12 % N 10.5-15 Platelet Count 190 10^3/uL N 150-450 Mean Platelet Volume 8 um3 N 7.4-10.4 Abs Neutrophils 2.4 10^3/uL N 1.5-7.7 Abs Lymphocytes 0.9 10^3/uL Low 1.0-4.8 Abs Monocytes 0.8 10^3/uL N 0-0.8 Abs Eosinophils 0.2 10^3/uL N 0-0.6 Abs Basophils 0 10^3/uL N 0-0.2 Abs Nucleated RBC 0.01 10^3/uL N Granulocyte % 54.5 % N 38-83 Lymphocyte % 21.9 % Low 25-47 Monocyte % 18.7 % High 1-9 Eosinophil % 4.0 % N 0-6 Basophil % 0.9 % N 0-2 Nucleated Red Blood Cells % 0.1 N Inr/Protime 06/30/2015 [facility] Inr 0.90 N 0.78-1.[address] [place] [address] [phone] Laboratory test 06/30/2015 [facility] Partial 33.0 seconds N 26.0-36.[address] [place] [address] PTT [phone] Basic Metabolic 06/30/2015 [facility] Sodium 138 mmol/L N 133- [address] [place] [address] [phone] Potassium 4.3 mmol/L N 3.5-5.0 Chloride 106 mmol/L N 101-111 Co2 Carbon Dioxide 27 mmol/L N 22-32 Anion Gap 5 mmol/L N 2-11 Glucose 104 mg/dL High 70-100 Blood Urea Nitrogen 18 mg/dL N 6-24 Creatinine 0.93 mg/dL N 0.67-1.17 BUN/Creatinine Ratio 19.4 N 8-20 Calcium 9.7 mg/dL N 8.6-10.3 Egfr Non- 79.2 N >60 Egfr 101.9 N >60 43 CBC Auto Diff 05/19/2015 [facility] White Blood 5.7 10^3/uL N 4.8-10.[address] [place] [address] [phone] Red Blood Count 4.27 10^6/uL N 4.0-5.4 Hemoglobin 14.4 g/dL N 14.0-18.0 Hematocrit 42 % N 42-52 Mean Corpuscular Volume 98 fL High 80-94 Mean Corpuscular Hemoglobin 34 pg High 27-31 Mean Corpuscular HGB Conc 34 g/dL N 31-36 Red Cell Distribution Width 12 % N 10.5-15 Platelet Count 212 10^3/uL N 150-450 Mean Platelet Volume 8 um3 N 7.4-10.4 Abs Neutrophils 3.0 10^3/uL N 1.5-7.7 Abs Lymphocytes 1.4 10^3/uL N 1.0-4.8 Abs Monocytes 0.9 10^3/uL High 0-0.8 Abs Eosinophils 0.3 10^3/uL N 0-0.6 Abs Basophils 0 10^3/uL N 0-0.2 Abs Nucleated RBC 0 10^3/uL N Granulocyte % 53.1 % N 38-83 Lymphocyte % 24.7 % Low 25-47 Monocyte % 16.2 % High 1-9 Eosinophil % 5.3 % N 0-6 Basophil % 0.7 % N 0-2 Nucleated Red Blood Cells % 0 N Laboratory test 05/19/2015 [facility] TSH (Thyroid 1.43 ?IU/mL N 0.34-5.[address] Stim Horm) [place] [address] [phone] Vitamin B12 282 pg/mL N 180-914 44 Comp Metabolic Panel 05/11/2015 [facility] Sodium 137 mmol/L N 133-[address] [place] [address] [phone] Potassium 4.6 mmol/L N 3.5-5.0 Chloride 105 mmol/L N 101-111 Co2 Carbon Dioxide 27 mmol/L N 22-32 Anion Gap 5 mmol/L N 2-11 Blood Urea Nitrogen 18 mg/dL N 6-24 Creatinine 0.95 mg/dL N 0.67-1.17 BUN/Creatinine Ratio 18.9 N 8-20 Calcium 10.0 mg/dL N 8.6-10.3 Total Protein 6.6 g/dL N 6.4-8.9 Albumin 4.4 g/dL N 3.2-5.2 Globulin 2.2 g/dL N 2-4 Albumin/Globulin Ratio 2.0 N 1-3 Total Bilirubin 0.60 mg/dL N 0.2-1.0 Alkaline Phosphatase 55 U/L N 34-104 Alt 18 U/L N 7-52 Ast 17 U/L N 13-39 Egfr Non- 77.3 N >60 Egfr 99.4 N >60 45 Laboratory test 05/11/2015 [facility] Glucose 101 mg/dL High 70-100 finding [address] [place], [place] [address] [phone] Vitamin D Total 25(Oh) 36.8 ng/mL N 30-50 46 Lipid Profile 05/11/2015 [facility] Triglycerides 155 mg/dL N 47 (Trig/Chol/HDL) [address] [place], [place] [address] [phone] Cholesterol 181 mg/dL N 48 HDL Cholesterol 51.5 mg/dL N 49 LDL Cholesterol 99 mg/dL N 50 Lipid Profile 11/15/2013 [facility] Triglycerides 150 mg/dL 40-200 (Trig/Chol/HDL) [address] [place], [place] [id number] [phone] Cholesterol 173 mg/dL Less than 200 HDL Cholesterol 53 mg/dL 40-60 51 Cholesterol/HDL Ratio 3.3 Average 1-4.44 LDL Cholesterol 90.0 Less Than 100 52 Laboratory test 11/15/2013 [facility] Glucose 91 mg/dL 70- 100 53 finding [address] [place] [address] [phone] Comp Metabolic Panel 05/09/2013 [facility] Sodium 137 mmol/L 133-145 [address] [place], [place] [address] [phone] Potassium 4.4 mmol/L 3.5-5.0 Chloride 104 mmol/L 101-111 Co2 Carbon Dioxide 27.0 mmol/L 22-32 Anion Gap 6.0 mmol/L 2-11 Glucose 106 mg/dL High 70-100 Blood Urea Nitrogen 17 mg/dL 6-24 Creatinine 0.90 mg/dL 0.50-1.40 BUN/Creatinine Ratio 18.9 8-20 Calcium 10.1 mg/dL High 8.1-9.9 Total Protein 6.7 g/dL 6.2-8.1 Albumin 4.1 g/dL 3.2-5.2 Globulin 2.6 g/dL 2-4 Albumin/Globulin Ratio 1.6 1-3 Total Bilirubin 0.8 mg/dL 0.4-1.5 Alkaline Phosphatase 59 U/L 30-110 Alt 24 U/L 14-54 Ast 24 U/L 12-42 Egfr Non- 82.7 >60 Egfr 106.4 >60 54 Lipid Profile 05/09/2013 [facility] Triglycerides 274 mg/dL High 40-200 (Trig/Chol/HDL) [address] [place] [address] [phone] Cholesterol 192 mg/dL Less than 200 HDL Cholesterol 50 mg/dL 40-60 55 Cholesterol/HDL Ratio 3.8 Average 1-4.44 LDL Cholesterol 87.2 Less Than 100 56 Vitamin D, 25 05/08/2012 [facility] 25-Hydroxy Vitamin <4.0 ng/ mL () Hydroxy [address] [facility] D2 [place] [address] [phone] 25-Hydroxy Vitamin D3 51 ng/mL () 25-Hydroxy Vitamin D Total 51 ng/mL () 57 PTH Intact, Inc 05/08/2012 [facility] PTH Intact 8.4 PMOL/L 1.3-9.3 Total Calcium [address] [place] [address] [phone] Calcium For Pthi 10.0 mg/dL High 8.1-9.9 58 Laboratory test 05/08/2012 [facility] Calcium 5.26 mg/dL 4.65 -5.[address] [place] [address] [phone] Comp Metabolic 04/20/2012 [facility] Sodium 138 mmol/L 135- [address] [place] [address] [phone] Potassium 5.0 mmol/L 3.5-5.0 Chloride 102 mmol/L 101-111 Co2 (Carbon Dioxide) 30.0 mmol/L 22-32 Anion Gap 6.0 mmol/L 2-11 59 Glucose 98 mg/dL 70-100 BUN 22 mg/dL 6-24 Creatinine 0.9 mg/dL 0.50-1.40 One Over Creatinine 1.11 BUN/Creatinine Ratio 24.4 High 8-20 Calcium 10.1 mg/dL High 8.1-9.9 Total Protein 7.5 GM/DL 6.2-8.1 Albumin 4.6 GM/DL 3.2-5.2 Globulin 2.9 GM/DL 2-4 Albumin/Globulin Ratio 1.6 1-3 Bilirubin Total 0.8 mg/dL 0.4-1.5 60 Alkaline Phosphatase 54 U/L 39-117 Alt (SGPT) 22 U/L 17-63 Ast (Sgot) 19 U/L 12-42 eGFR Non- 82.9 > 60 eGFR 106.7 > 60 61 Laboratory test 04/20/2012 [facility] PSA,Diagnostic 2.44 NG/ML 0-[address] [place] [address] [phone] Lipid Profile 04/20/2012 [facility] Triglyceride 81 mg/dL 40- 200 (Trig/Chol/HDL) [address] [place], [place] [id number] [phone] Cholesterol 191 mg/dL Less Than 200 63 High Density Lipoprotein 78 mg/dL High 40-60 64 Cholesterol/HDL Ratio 2.45 AVERAGE 1-4.97 Low Density Lipoprotein 97 mg/dL Less Than 100 65 Laboratory 05/19/2011 [facility] PSA,Diagnostic 2.78 0-[address] NG/ML [place], [place] [id number] [phone] Laboratory 03/29/2011 [facility] CPK (Creatine 252 U/L High 0- [address] Kin[facility]) [place] [address] [phone] Lipid Profile 03/29/2011 [facility] Triglyceride 125 mg/dL 40 -200 (Trig/Chol/HDL [address] ) [place], [place] [id number] [phone] Cholesterol 196 mg/dL Less Than 200 67 High Density Lipoprotein 55 mg/dL 40-60 68 Cholesterol/HDL Ratio 3.56 AVERAGE 1-4.97 Low Density Lipoprotein 116 mg/dL High Less Than 100 69 Comp Metabolic Panel 01/14/2011 [facility] Sodium 139 mmol/L 135-[address] [place] [address] [phone] Potassium 4.3 mmol/L 3.5-5.0 Chloride 104 mmol/L 101-111 Co2 (Carbon Dioxide) 29.0 mmol/L 22-32 Anion Gap 6.0 mmol/L 2-11 70 Glucose 95 mg/dL 70-100 BUN 15 mg/dL 6-24 Creatinine 1.00 mg/dL 0.50-1.40 One Over Creatinine 1.00 BUN/Creatinine Ratio 15.0 8-20 Calcium 9.5 mg/dL 8.1-9.9 Total Protein 6.5 GM/DL 6.2-8.1 Albumin 4.2 GM/DL 3.2-5.2 Globulin 2.3 GM/DL 2-4 Albumin/Globulin Ratio 1.8 1-3 Bilirubin Total 1.0 mg/dL 0.4-1.5 71 Alkaline Phosphatase 50 U/L 39-117 Alt (SGPT) 24 U/L 17-63 Ast (Sgot) 27 U/L 12-42 eGFR Non- 73.9 > 60 eGFR 95.0 > 60 72 Lipid Profile 01/14/2011 [facility] Triglyceride 104 mg/dL 40 -200 (Trig/Chol/HDL) [address] [place] [address] [phone] Cholesterol 144 mg/dL Less Than 200 73 High Density Lipoprotein 49 mg/dL 40-60 74 Cholesterol/HDL Ratio 2.94 AVERAGE 1-4.97 Low Density Lipoprotein 74 mg/dL Less Than 100 75 Laboratory test 01/14/2011 [facility] CPK (Creatine 97 U/L 0- [address] Kinase) [place] [address] [phone] Surgical 11/19/2010 [facility] Surgical --------- [address] Pathology ------- [place] [address] <SEE [phone] NOTE> Laboratory test 11/17/2010 [facility] PSA,Diagnostic 2.95 0- 4 [address] NG/[place] [address] [phone] Surgical 10/18/2010 [facility] Surgical --------- [address] Pathology ------- [place] [address] <SEE [phone] NOTE> Surgical 06/15/2010 [facility] Surgical --------- 79 Pathology [address] [facility] Pathology ------- [place] [address] <SEE [phone] NOTE> Laboratory test 04/15/2010 [facility] PSA Screening 2.60 0-4 80 finding 101 [facility] NG/[place] [address] [phone] TSH 1.39 MIU/ML 0.34-5.60 Basic Metabolic Panel 04/07/2010 [facility] Sodium 137 mmol/L 135-145 101 [place] [address] [phone] Potassium 4.1 mmol/L 3.5-5.0 Chloride 102 mmol/L 101-111 Co2 (Carbon Dioxide) 31.0 mmol/L 22-32 Anion Gap 4.0 mmol/L 2-11 81 Glucose 89 mg/dL 70-100 82 BUN 19 mg/dL 6-24 Creatinine 0.90 mg/dL 0.50-1.40 One Over Creatinine 1.10 BUN/Creatinine Ratio 21.1 High 8-20 Calcium 9.4 mg/dL 8.1-9.9 83 eGFR Non- 88.7 > 60 eGFR 107.3 > 60 84 Lipid Profile 04/07/2010 [facility] Triglyceride 95 mg/dL 40- 200 (Trig/Chol/HDL) 101 [place] [address] [phone] Cholesterol 170 mg/dL Less Than 200 85 High Density Lipoprotein 54 mg/dL 40-60 86 Cholesterol/HDL Ratio 3.15 AVERAGE 1-4.97 Low Density Lipoprotein 97 mg/dL Less Than 100 87 Liver Function 04/07/2010 [facility] Total Protein 6.7 GM/DL 6.2-8.1 Panel 101 [place] [address] [phone] Albumin 4.5 GM/DL 3.2-5.2 Globulin 2.2 GM/DL 2-4 Albumin/Globulin Ratio 2.0 1-3 Bilirubin Total 1.0 mg/dL 0.4-1.5 88 Bilirubin Direct 0.1 mg/dL 0.1-0.5 Indirect Bilirubin 0.9 mg/dL High 0.1-0.75 Alkaline Phosphatase 41 U/L 39-117 Alt (SGPT) 29 U/L 17-63 Ast (Sgot) 27 U/L 12-42 Laboratory test 02/23/2009 [facility] PSA,Diagnostic 3.67 NG/ML 0-4 89 finding 101 [place] [address] [phone] Basic Metabolic 02/23/2009 [facility] Sodium 141 mmol/L 135- 145 Panel 101 [place] [address] [phone] Potassium 4.3 mmol/L 3.5-5.0 Chloride 105 mmol/L 101-111 Co2 (Carbon Dioxide) 31.0 mmol/L 22-32 Anion Gap 5.0 mmol/L 2-11 90 Glucose 95 mg/dL 70-100 91 BUN 12 mg/dL 6-24 Creatinine 1.00 mg/dL 0.50-1.40 One Over Creatinine 1.00 BUN/Creatinine Ratio 12.0 8-20 Calcium 9.7 mg/dL 8.1-9.9 92 Lipid Profile 02/23/2009 [facility] Triglyceride 82 mg/dL 40- 200 (Trig/Chol/HDL) 101 [place] [address] [phone] Cholesterol 146 mg/dL Less Than 200 93 High Density Lipoprotein 52 mg/dL 40-60 94 Cholesterol/HDL Ratio 2.81 AVERAGE 1-4.97 Low Density Lipoprotein 78 mg/dL Less Than 100 95 Liver Function 02/23/2009 [facility] Total Protein 6.6 GM/DL 6.2-8.1 Panel 101 [place] [address] [phone] Albumin 4.1 GM/DL 3.2-5.2 Globulin 2.5 GM/DL 2-4 Albumin/Globulin Ratio 1.6 1-3 Bilirubin Total 1.1 mg/dL 0.4-1.5 96 Bilirubin Direct 0.2 mg/dL 0.1-0.5 Indirect Bilirubin 0.9 mg/dL High 0.1-0.75 Alkaline Phosphatase 43 U/L 39-117 Alt (SGPT) 21 U/L 17-63 Ast (Sgot) 26 U/L 12-42 Surgical 04/01/2008 [facility] Surgical 97 Pathology 101 DATES [facility] Pathology <SEE NOTE> [place] [address] [phone] Laboratory 02/06/2008 [facility] PSA Screening 2.65 NG/ML 0- 4 98 test finding [address] [place] [address] [phone] Lipid Profile 02/06/2008 [facility] Cholesterol/H 2.74 AVERAGE 1-4. (Trig/Chol/HDL [address] Ratio 97 ) [place], [place] [id number] [phone] Cholesterol 156 mg/dL Less Than 200 99 Triglyceride 94 mg/dL 40-200 High Density Lipoprotein 57 mg/dL 40-60 100 Low Density Lipoprotein 80 mg/dL Less Than 100 101 Basic Metabolic 02/06/2008 [facility] One Over Creatinine 0.[address] [place] [address] [phone] Anion Gap 4.0 mmol/L 2-11 102 BUN 17 mg/dL 6-24 Calcium 9.1 mg/dL 8.7-10.2 Chloride 107 mmol/L 101-111 Co2 (Carbon Dioxide) 28.0 mmol/L 22-32 Glucose 96 mg/dL 70-105 Potassium 4.0 mmol/L 3.5-5.0 Sodium 139 mmol/L 135-145 BUN/Creatinine Ratio 14.2 8-20 Creatinine 1.2 mg/dL 0.5-1.4 1 ADDITIONAL INFORMATION This test was developed and its performance characteristics determined by [facility] in a manner consistent with CLIA requirements. This test has not been cleared or approved by the U.S. Food and Drug Administration. Test Performed by: [facility] [address] [place] [address] 2 Because ethnic data is not always readily available, this report includes an eGFR for both -Americans and non- Americans. The National Kidney Disease Education Program (NKDEP) does not endorse the use of the MDRD equation for patients that are not between the ages of 18 and 70, are , have extremes of body size, muscle mass, or nutritional status, or are non- or non-. According to the National Kidney Foundation, irrespective of diagnosis, the stage of the disease is based on the level of kidney function: Stage Description GFR(mL/min/1.73 m(2)) 1 Kidney damage with normal or decreased GFR 90 2 Kidney damage with mild decrease in GFR 60-89 3 Moderate decrease in GFR 30-59 4 Severe decrease in GFR 15-29 5 Kidney failure <15 (or dialysis) 3 Troponin-I testing on Plasma Separator Tubes (PST) has a known false positive rate of 0.20-0.40%. All positive troponins reflex immediate secondary confirmatory testing. 4 Normal Range 180 to 914 Indeterminate Range 145 to 180 Deficient Range <145 5 RESULT: No apparent monoclonal protein on serum electrophoresis. Test Performed by: [address] [address] 6 Therapeutic target for the treatment of diabetes mellitus patients is <7% HBA1C, and in selective patients <6.0%. Please refer to [place] [employer] diabetic care guidelines for further information. 7 [facility] Severe Sepsis and Septic Shock Management Bundle Measure requires all lactic acids initially measuring >2.0 mmol/L be repeated. 8 SEE RESULT BELOW Name: STIVENEYAL Lisseth : [address]: Duane Masters MD Acct: [id number] Unit: [id number] AGE: 78 Location: ED Re10/16/18 SEX: M Status: DEP ER SPEC: [id number] KAELA: 10/16/18-[address] [facility] [address]: Ion Aguirre MD REQ: [id number] RECD: 10/16/18 STATUS: CAROL SILVEIRA DR: Kraig Donovan MD _ SOURCE: BLOOD,[facility]: ORDERED: Blood Cult Procedure Result Reported Site Aerobic Culture Bottle Final 10/21/18- 1712 ML No Growth Day 5 Anaerobic Culture Bottle Final 10/21/18- 1712 ML No Growth Day 5 * ML - Main Lab . END OF REPORT DEPARTMENT OF PATHOLOGY, [address] [place] [address] Jonathan Smiley M.D. Director [facility] # [id number] 9 Because ethnic data is not always readily available, this report includes an eGFR for both -Americans and non- Americans. The National Kidney Disease Education Program (NKDEP) does not endorse the use of the MDRD equation for patients that are not between the ages of 18 and 70, are , have extremes of body size, muscle mass, or nutritional status, or are non- or non-. According to the National Kidney Foundation, irrespective of diagnosis, the stage of the disease is based on the level of kidney function: Stage Description GFR(mL/min/1.73 m(2)) 1 Kidney damage with normal or decreased GFR 90 2 Kidney damage with mild decrease in GFR 60-89 3 Moderate decrease in GFR 30-59 4 Severe decrease in GFR 15-29 5 Kidney failure <15 (or dialysis) 10 Therapeutic target for the treatment of diabetes mellitus patients is <7% HBA1C, and in selective patients <6.0%. Please refer to [place] [employer] diabetic care guidelines for further information. 11 Because ethnic data is not always readily available, this report includes an eGFR for both -Americans and non- Americans. The National Kidney Disease Education Program (NKDEP) does not endorse the use of the MDRD equation for patients that are not between the ages of 18 and 70, are , have extremes of body size, muscle mass, or nutritional status, or are non- or non-. According to the National Kidney Foundation, irrespective of diagnosis, the stage of the disease is based on the level of kidney function: Stage Description GFR(mL/min/1.73 m(2)) 1 Kidney damage with normal or decreased GFR 90 2 Kidney damage with mild decrease in GFR 60-89 3 Moderate decrease in GFR 30-59 4 Severe decrease in GFR 15-29 5 Kidney failure <15 (or dialysis) 12 Desirable: <150 Borderline High: 150-199 High: 200-499 Very High: >500 13 Desirable: <200 Borderline High: 200-239 High: >239 14 Low: <40 Desirable: 40-60 High: >60 15 Desirable: <100 Near Optimal: 100-129 Borderline High: 130-159 High: 160-189 Very High: >189 16 FASTING 10 HOUR 17 FASTING 10 HOUR 18 Normal Range 180 to 914 Indeterminate Range 145 to 180 Deficient Range <145 19 >100 to <200 pg/mL: likely compensated congestive heart failure (CHF) 200 to 400 pg/mL: likely moderate CHF >400 pg/mL: likely moderate to severe CHF 20 Because ethnic data is not always readily available, this report includes an eGFR for both -Americans and non- Americans. The National Kidney Disease Education Program (NKDEP) does not endorse the use of the MDRD equation for patients that are not between the ages of 18 and 70, are , have extremes of body size, muscle mass, or nutritional status, or are non- or non-. According to the National Kidney Foundation, irrespective of diagnosis, the stage of the disease is based on the level of kidney function: Stage Description GFR(mL/min/1.73 m(2)) 1 Kidney damage with normal or decreased GFR 90 2 Kidney damage with mild decrease in GFR 60-89 3 Moderate decrease in GFR 30-59 4 Severe decrease in GFR 15-29 5 Kidney failure <15 (or dialysis) 21 Acute inflammation: >10.00 22 Serologic response to B. burgdorferi infection is not detected, but cannot rule out early infection during which low or undetectable antibody levels to B. burgdorferi may be present. If clinically indicated, a new serum specimen should be submitted in 7-14 days. Test Performed by: [facility] [address] [place] [address] 23 Desirable <150 Borderline high 150-199 High 200-499 Very High >500 24 Desirable <200 Borderline high 200-239 High >239 25 Low <40 Desirable: 40-60 High: >60 26 Desirable: <100 mg/dL Near Optimal: 100-129 mg/dL Borderline High: 130-159 mg/dL High: 160-189 mg/dL Very High: >189 mg/dL 27 Because ethnic data is not always readily available, this report includes an eGFR for both -Americans and non- Americans. The National Kidney Disease Education Program (NKDEP) does not endorse the use of the MDRD equation for patients that are not between the ages of 18 and 70, are , have extremes of body size, muscle mass, or nutritional status, or are non- or non-. According to the National Kidney Foundation, irrespective of diagnosis, the stage of the disease is based on the level of kidney function: Stage Description GFR(mL/min/1.73 m(2)) 1 Kidney damage with normal or decreased GFR 90 2 Kidney damage with mild decrease in GFR 60-89 3 Moderate decrease in GFR 30-59 4 Severe decrease in GFR 15-29 5 Kidney failure <15 (or dialysis) 28 Normal Range 180 to 914 Indeterminate Range 145 to 180 Deficient Range <145 29 99th percentile=0.04 ng/mL Troponin results at [facility] and [facility] are not interchangeable. 30 Because ethnic data is not always readily available, this report includes an eGFR for both -Americans and non- Americans. The National Kidney Disease Education Program (NKDEP) does not endorse the use of the MDRD equation for patients that are not between the ages of 18 and 70, are , have extremes of body size, muscle mass, or nutritional status, or are non- or non-. According to the National Kidney Foundation, irrespective of diagnosis, the stage of the disease is based on the level of kidney function: Stage Description GFR(mL/min/1.73 m(2)) 1 Kidney damage with normal or decreased GFR 90 2 Kidney damage with mild decrease in GFR 60-89 3 Moderate decrease in GFR 30-59 4 Severe decrease in GFR 15-29 5 Kidney failure <15 (or dialysis) 31 [facility] Severe Sepsis and Septic Shock Management Bundle Measure requires all lactic acids initially measuring >2.0 mmol/L be repeated. 32 >100 to <200 pg/mL: likely compensated congestive heart failure (CHF) 200 to 400 pg/mL: likely moderate CHF >400 pg/mL: likely moderate to severe CHF 33 SEE RESULT BELOW Name: ADELAGERAEYAL : [address]: Ion Aguirre MD Acct: [id number] Unit: [id number] AGE: 76 Location: ED Re10/03/16 SEX: M Status: REG ER SPEC: [id number] KAELA: 10/03/[address]: Marleny BLANCHARD REQ: [id number] RECD: 10/03/16 STATUS: CAROL SILVEIRA DR: Kraig Aguirre MD _ SOURCE: STOOL SPDESC: ORDERED: Hemoccult Procedure Result Reported Site Stool Occult Blood Final 10/03/16- 1750 ML Stool Occult Blood Negative * ML - MAIN LAB ([facility]) . END OF REPORT * ML=Testing performed at Main Lab DEPARTMENT OF PATHOLOGY, [address] [place] [address] Jonathan Smiley M.D. Director [facility] # [id number] 34 99th percentile=0.04 ng/mL Troponin results at [facility] and [facility] are not interchangeable. 35 Desirable <150 Borderline high 150-199 High 200-499 Very High >500 36 Desirable <200 Borderline high 200-239 High >239 37 Low <40 Desirable: 40-60 High: >60 38 Desirable: <100 mg/dL Near Optimal: 100-129 mg/dL Borderline High: 130-159 mg/dL High: 160-189 mg/dL Very High: >189 mg/dL 39 [id number] FASTING 10 HOUR 40 Because ethnic data is not always readily available, this report includes an eGFR for both -Americans and non- Americans. The National Kidney Disease Education Program (NKDEP) does not endorse the use of the MDRD equation for patients that are not between the ages of 18 and 70, are , have extremes of body size, muscle mass, or nutritional status, or are non- or non-. According to the National Kidney Foundation, irrespective of diagnosis, the stage of the disease is based on the level of kidney function: Stage Description GFR(mL/min/1.73 m(2)) 1 Kidney damage with normal or decreased GFR 90 2 Kidney damage with mild decrease in GFR 60-89 3 Moderate decrease in GFR 30-59 4 Severe decrease in GFR 15-29 5 Kidney failure <15 (or dialysis) 41 [facility] Severe Sepsis and Septic Shock Management Bundle Measure requires all lactic acids initially measuring >2.0mmol/L be repeated. 42 Acute inflammation: >10.00 43 Because ethnic data is not always readily available, this report includes an eGFR for both -Americans and non- Americans. The National Kidney Disease Education Program (NKDEP) does not endorse the use of the MDRD equation for patients that are not between the ages of 18 and 70, are , have extremes of body size, muscle mass, or nutritional status, or are non- or non-. According to the National Kidney Foundation, irrespective of diagnosis, the stage of the disease is based on the level of kidney function: Stage Description GFR(mL/min/1.73 m(2)) 1 Kidney damage with normal or decreased GFR 90 2 Kidney damage with mild decrease in GFR 60-89 3 Moderate decrease in GFR 30-59 4 Severe decrease in GFR 15-29 5 Kidney failure <15 (or dialysis) 44 Normal Range 180 to 914 Indeterminate Range 145 to 180 Deficient Range <145 45 Because ethnic data is not always readily available, this report includes an eGFR for both -Americans and non- Americans. The National Kidney Disease Education Program (NKDEP) does not endorse the use of the MDRD equation for patients that are not between the ages of 18 and 70, are , have extremes of body size, muscle mass, or nutritional status, or are non- or non-. According to the National Kidney Foundation, irrespective of diagnosis, the stage of the disease is based on the level of kidney function: Stage Description GFR(mL/min/1.73 m(2)) 1 Kidney damage with normal or decreased GFR 90 2 Kidney damage with mild decrease in GFR 60-89 3 Moderate decrease in GFR 30-59 4 Severe decrease in GFR 15-29 5 Kidney failure <15 (or dialysis) 46 FASTING 10 HOUR 47 Desirable <150 Borderline high 150-199 High 200-499 Very High >500 48 Desirable <200 Borderline high 200-239 High >239 49 Low <40 Desirable: 40-60 High: >60 50 Desirable: <100 mg/dL Near Optimal: 100-129 mg/dL Borderline High: 130-159 mg/dL High: 160-189 mg/dL Very High: >189 mg/dL 51 HDL Interpretation: Undesirable: High Risk: Less than 40 mg/dL Desirable: Low Risk: Greater than 60 mg/dL 52 LDL Interpretation: Low Risk Optimal Level: LDL Less than 100 mg/dL Near or Above Optimal: LDL 100-129 mg/dL Borderline High Risk: LDL 130-159 mg/dL High Risk: LDL 160-189 mg/dL Very High Risk: LDL Greater than 189 mg/dL 53 PT IS FASTING 54 Because ethnic data is not always readily available, this report includes an eGFR for both -Americans and non- Americans. The National Kidney Disease Education Program (NKDEP) does not endorse the use of the MDRD equation for patients that are not between the ages of 18 and 70, are , have extremes of body size, muscle mass, or nutritional status, or are non- or non-. According to the National Kidney Foundation, irrespective of diagnosis, the stage of the disease is based on the level of kidney function: Stage Description GFR(mL/min/1.73 m(2)) 1 Kidney damage with normal or decreased GFR 90 2 Kidney damage with mild decrease in GFR 60-89 3 Moderate decrease in GFR 30-59 4 Severe decrease in GFR 15-29 5 Kidney failure <15 (or dialysis) 55 HDL Interpretation: Undesirable: High Risk: Less than 40 mg/dL Desirable: Low Risk: Greater than 60 mg/dL 56 LDL Interpretation: Low Risk Optimal Level: LDL Less than 100 mg/dL Near or Above Optimal: LDL 100-129 mg/dL Borderline High Risk: LDL 130-159 mg/dL High Risk: LDL 160-189 mg/dL Very High Risk: LDL Greater than 189 mg/dL 57 -- REFERENCE VALUE -- 25-HYDROXY D TOTAL (D2+D3) Optimum levels in the normal population are 25-80 Test Performed by: [place] [address] [employer]: Tim Silva III, M.D. 58 Please note change in reference range effective 08 . 59 Anion gap measurement may be of limited value in the presence of any alkalosis, especially in a combined acid base disorder. . 60 A metabolite of Naproxen, O-desmethylnaproxen, has been shown to interfere with the Jendrassik-Garret method for measuring total bilirubin. Samples from patients who have taken Naproxen have shown spurious elevation in total bilirubin levels. 61 Because ethnic data is not always readily available, this report includes an eGFR for both -Americans and non- Americans. The National Kidney Disease Education Program (NKDEP) does not endorse the use of the MDRD equation for patients that are not between the ages of 18 and 70, are , have extremes of body size, muscle mass, or nutritional status, or are non- or non-. According to the National Kidney Foundation, irrespective of diagnosis, the stage of the disease is based on the level of kidney function: Stage Description GFR(mL/min/1.73 m(2)) 1 Kidney damage with normal or decreased GFR 90 2 Kidney damage with mild decrease in GFR 60-89 3 Moderate decrease in GFR 30-59 4 Severe decrease in GFR 15-29 5 Kidney failure <15 (or dialysis) 62 * SERUM LEVELS OF PSA MEASURED USING THE [employer] ACCESS HYBRITECH IMMUNOASSAY SHOULD NOT BE INTERPRETED ABSOLUTE EVIDENCE OF THE PRESENCE OR ABSENCE OF DISEASE. THE PSA VALUE SHOULD BE USED IN CONJUNCTION WITH OTHER PERTINENT CLINICAL DIAGNOSTIC PROCEDURES. The values obtained with different assay methods or kits cannot be used interchangeably. 63 CHOLESTEROL INTERPRETATION: Desirable: Less than 200 MG/DL Borderline-High Risk: 200-239 MG/DL High-Risk: 240 MG/DL and over 64 HDL INTERPRETATION: Undesirable: High Risk: Less than 40 MG/DL Desirable: Low Risk: Greater than 60 MG/DL 65 LDL INTERPRETATION: Low Risk Optimal Level: LDL Less than 100 MG/DL Near or Above Optimal: LDL 100-129 MG/DL Borderline High Risk: LDL 130-159 MG/DL High Risk: LDL 160-189 MG/DL Very High Risk: LDL Greater than 189 MG/DL 66 * SERUM LEVELS OF PSA MEASURED USING THE DIANE MURTAZA ACCESS HYBRITECH IMMUNOASSAY SHOULD NOT BE INTERPRETED ABSOLUTE EVIDENCE OF THE PRESENCE OR ABSENCE OF DISEASE. THE PSA VALUE SHOULD BE USED IN CONJUNCTION WITH OTHER PERTINENT CLINICAL DIAGNOSTIC PROCEDURES. 67 CHOLESTEROL INTERPRETATION: Desirable: Less than 200 MG/DL Borderline-High Risk: 200-239 MG/DL High-Risk: 240 MG/DL and over 68 HDL INTERPRETATION: Undesirable: High Risk: Less than 40 MG/DL Desirable: Low Risk: Greater than 60 MG/DL 69 LDL INTERPRETATION: Low Risk Optimal Level: LDL Less than 100 MG/DL Near or Above Optimal: LDL 100-129 MG/DL Borderline High Risk: LDL 130-159 MG/DL High Risk: LDL 160-189 MG/DL Very High Risk: LDL Greater than 189 MG/DL 70 Anion gap measurement may be of limited value in the presence of any alkalosis, especially in a combined acid base disorder. . 71 A metabolite of Naproxen, O-desmethylnaproxen, has been shown to interfere with the Jendrassik-Garret method for measuring total bilirubin. Samples from patients who have taken Naproxen have shown spurious elevation in total bilirubin levels. 72 Because ethnic data is not always readily available, this report includes an eGFR for both -Americans and non- Americans. The National Kidney Disease Education Program (NKDEP) does not endorse the use of the MDRD equation for patients that are not between the ages of 18 and 70, are , have extremes of body size, muscle mass, or nutritional status, or are non- or non-. According to the National Kidney Foundation, irrespective of diagnosis, the stage of the disease is based on the level of kidney function: Stage Description GFR(mL/min/1.73 m(2)) 1 Kidney damage with normal or decreased GFR 90 2 Kidney damage with mild decrease in GFR 60-89 3 Moderate decrease in GFR 30-59 4 Severe decrease in GFR 15-29 5 Kidney failure <15 (or dialysis) 73 CHOLESTEROL INTERPRETATION: Desirable: Less than 200 MG/DL Borderline-High Risk: 200-239 MG/DL High-Risk: 240 MG/DL and over 74 HDL INTERPRETATION: Undesirable: High Risk: Less than 40 MG/DL Desirable: Low Risk: Greater than 60 MG/DL 75 LDL INTERPRETATION: Low Risk Optimal Level: LDL Less than 100 MG/DL Near or Above Optimal: LDL 100-129 MG/DL Borderline High Risk: LDL 130-159 MG/DL High Risk: LDL 160-189 MG/DL Very High Risk: LDL Greater than 189 MG/DL 76 ---- RUN DATE: 11/24/10 [facility] NMI LIVE PAGE 1 RUN TIME: 1707 Specimen Inquiry RUN USER: INTERFACE -- Name: STIVENEYAL Montanez Status: REG REF Re11/19/10 Age/Sex: 70/M Unit#: [id number] Location: [facility] : 40 -- Specimen: [id number] SOUT Spec Date: 11/19/[address]: Abel haines MD Spec Type: SURGICAL P Received: 11/23/10-1014 Copies to: Kraig jordan MD SPECIMEN EXCISION BASAL CELL CARCINOMA INFERIOR HELIX LEFT EAR HISTORY PRE-OP DIAGNOSIS: Suture martinez twelve o'clock superior helix margin CLINICAL INFORMATION: Previous biopsy GROSS DESCRIPTION The specimen is received in formalin labelled Eyal Pizarro, Excision Basal Cell Carcinoma Inferior [place] Left Ear, Suture Martinez Twelve O'clock Margin, and consists of a triangular skin excision measuring 0.8 x 0.8 x 0.7 cm. with a suture marking twelve o'clock superior. The interior is inked green, six to inferior blue, and twelve to inferior black. The specimen is serially sectioned and submitted in one cassette. DIAGNOSIS Skin, inferior helix left ear, excision: A. Basal cell carcinoma, superficial multifocal type, completely excised. B. All margins of excision are free of basal cell carcinoma. Signed Electronically by: JOLYNN PAREKH 11/24/10 1707 -- -- DEPARTMENT OF PATHOLOGY, [address] [place] [address] [facility] Permit #[id number] Jonathan Smiley M.D. Director Jolynn Parekh M.D. [employer] Judge Dir yassine -- 77 * SERUM LEVELS OF PSA MEASURED USING THE DIANE Kleo ACCESS HYBRITECH IMMUNOASSAY SHOULD NOT BE INTERPRETED ABSOLUTE EVIDENCE OF THE PRESENCE OR ABSENCE OF DISEASE. THE PSA VALUE SHOULD BE USED IN CONJUNCTION WITH OTHER PERTINENT CLINICAL DIAGNOSTIC PROCEDURES. 78 ---- RUN DATE: 10/21/10 [facility] NMI LIVE PAGE 1 RUN TIME: 1443 Specimen Inquiry RUN USER: INTERFACE -- Name: STIVENEYAL Status: REG REF Re10/18/10 Age/Sex: 70/M Unit#: [id number] Location: [facility] : 40 -- Specimen: [id number] SOUT Spec Date: 10/18/[address]: Abel haines MD Spec Type: SURGICAL P Received: 10/20/10 Copies to: Kraig jordan MD SPECIMEN EXCISION LESION INFERIOR HELIX LEFT EAR HISTORY PRE-OP DIAGNOSIS: Rule out squamous cell carcinoma, suture geovani twelve o' clock posterior, superior helix margin. CLINICAL INFORMATION: Non-healing lesion. GROSS DESCRIPTION The specimen is received in formalin labelled Eyal Pizarro, Excision Lesion Inferior [place], Left Ear, Suture Martinez Twelve O'clock Position, and consists of a skin ellipse measuring 1.0 x 0.6 x 0.3 cm. with an orienting suture designated twelve o'clock. The twelve o'clock half is inked black, the six o'clock half is inked blue and the three o'clock tip is inked green. The specimen is serially sectioned along it's short axis and submitted entirely, one cassette. DIAGNOSIS Skin, helix left ear, biopsy: A. Basal cell carcinoma, nodular type. B. Basal cell carcinoma is broadly transected at both unoriented lateral margins of resection and tips. Signed Electronically by: JONATHAN SMILEY MD 10/21/10 1442 -- -- DEPARTMENT OF PATHOLOGY, [address] [place] [address] [facility] Permit #[id number] Jonathan Smiley M.D. Director Jolynn Parekh M.D. Magisterial District Judge Dir yassine -- 79 ---- RUN DATE: 06/17/10 [facility] NMI LIVE PAGE 1 RUN TIME: 2361 Specimen Inquiry RUN USER: INTERFACE -- Name: EYAL PIZARRO Status: REG REF Re06/15/10 Age/Sex: 70/M Unit#: [id number] Location: [facility] : 40 -- [id number] [facility]: [facility] [facility] [address]: Dave ramírez MD Spec Type: SURGICAL P Received: 06/16/10-0890 Copies to: Kraig jordan MD SPECIMEN 1) LEFT LOBE PROSTATE BIOPSY APEX (APEX 3) 2) LEFT LOBE PROSTATE BIOPSY BASE (BASE 3) 3) RIGHT LOBE PROSTATE BIOPSY APEX (APEX 3) 4) RIGHT LOBE PROSTATE BIOPSY BASE (BASE 3) HISTORY PRE-OP DIAGNOSIS: PSA 2.6 on 04/15/10 GROSS DESCRIPTION 1) The specimen is received in formalin labelled [facility], Left Prostate Lobe [place] and consists of three, east, soft tissue cores measuring 1.3 cm., 1.2 cm., and 1.6 x 0.1 cm. Submitted entirely, one cassette. 2) The specimen is received in formalin labelled [facility], Left Prostate Lobe [place] and consists of three, east, soft tissue cores measuring 1.5 cm., 1.7 cm., and 1.4 x 0.1 cm. Submitted entirely, one cassette. 3) The specimen is received in formalin labelled [facility], Right Prostate Lobe [place] and consists of three, east, soft tissue cores measuring 2.0 cm., 1.9 cm., and 2.1 x 0.1 cm. Submitted entirely, one cassette. 4) The specimen is received in formalin labelled [facility], Right Prostate Lobe [place] and consists of three, east, soft tissue cores measuring 2.0 cm., 1.8 cm., and 1.7 x 0.1 cm. Submitted entirely, one cassette. DIAGNOSIS 1) Prostate, left apex, core biopsies: A) High grade prostatic intraepithelial neoplasia, focal. B) No invasive carcinoma identified. 2) Prostate, left base, core biopsies: A) High grade prostatic intraepithelial neoplasia, several foci. B) No definitive invasive carcinoma is identified. 3) Prostate, right apex, core biopsies: -- DEPARTMENT OF PATHOLOGY, [address] [place] [address] [facility] Permit #[id number] Katrina Clemons M.D. Magisterial District Judge yassine -- -- RUN DATE: 06/17/10 [facility] NMI LIVE PAGE 2 RUN TIME: 6101 Specimen Inquiry RUN USER: INTERFACE -- Name: EYAL PIZARRO Status: REG REF Re06/15/10 Age/Sex: 70/M Unit#: [id number] [facility] -- CONTINUED -- DIAGNOSIS (Continued) A) Benign prostate tissue with partial atrophy and chronic inflammation. B) No evidence of neoplasia. 4) Prostate, right base, core biopsies: A) Benign prostate tissue with partial atrophy and chronic inflammation. B) No evidence of neoplasia. Signed Electronically by: JONATHAN SMILEY MD 06/17/10 1452 -- -- DEPARTMENT OF PATHOLOGY, [address] [place] [address] [facility] Permit #[id number] Jonathan Smiley M.D. Director Jolynn Parekh M.D. Mag[employer]ial District Judge Dir yassine -- 80 * SERUM LEVELS OF PSA MEASURED USING THE DIANE MURTAZA ACCESS HYBRITECH IMMUNOASSAY SHOULD NOT BE INTERPRETED ABSOLUTE EVIDENCE OF THE PRESENCE OR ABSENCE OF DISEASE. THE PSA VALUE SHOULD BE USED IN CONJUNCTION WITH OTHER PERTINENT CLINICAL DIAGNOSTIC PROCEDURES. 81 Anion gap measurement may be of limited value in the presence of any alkalosis, especially in a combined acid base disorder. . 82 Note change in reference range as of 05/29/08. The change was based on recommendations from the [place] [employer]. 83 Please note change in reference range effective 08 . 84 Because ethnic data is not always readily available, this report includes an eGFR for both -Americans and non- Americans. The National Kidney Disease Education Program (NKDEP) does not endorse the use of the MDRD equation for patients that are not between the ages of 18 and 70, are , have extremes of body size, muscle mass, or nutritional status, or are non- or non-. According to the National Kidney Foundation, irrespective of diagnosis, the stage of the disease is based on the level of kidney function: Stage Description GFR(mL/min/1.73 m(2)) 1 Kidney damage with normal or decreased GFR 90 2 Kidney damage with mild decrease in GFR 60-89 3 Moderate decrease in GFR 30-59 4 Severe decrease in GFR 15-29 5 Kidney failure <15 (or dialysis) 85 CHOLESTEROL INTERPRETATION: Desirable: Less than 200 MG/DL Borderline-High Risk: 200-239 MG/DL High-Risk: 240 MG/DL and over 86 HDL INTERPRETATION: Undesirable: High Risk: Less than 40 MG/DL Desirable: Low Risk: Greater than 60 MG/DL 87 LDL INTERPRETATION: Low Risk Optimal Level: LDL Less than 100 MG/DL Near or Above Optimal: LDL 100-129 MG/DL Borderline High Risk: LDL 130-159 MG/DL High Risk: LDL 160-189 MG/DL Very High Risk: LDL Greater than 189 MG/DL 88 A metabolite of Naproxen, O-desmethylnaproxen, has been shown to interfere with the Jendrassik-[place] method for measuring total bilirubin. Samples from patients who have taken Naproxen have shown spurious elevation in total bilirubin levels. 89 * SERUM LEVELS OF PSA MEASURED USING THE DIANE Kleo ACCESS HYBRITECH IMMUNOASSAY SHOULD NOT BE INTERPRETED ABSOLUTE EVIDENCE OF THE PRESENCE OR ABSENCE OF DISEASE. THE PSA VALUE SHOULD BE USED IN CONJUNCTION WITH OTHER PERTINENT CLINICAL DIAGNOSTIC PROCEDURES. 90 Anion gap measurement may be of limited value in the presence of any alkalosis, especially in a combined acid base disorder. . 91 Note change in reference range as of 05/29/08. The change was based on recommendations from the [place] [employer]. 92 Please note change in reference range effective 08 . 93 CHOLESTEROL INTERPRETATION: Desirable: Less than 200 MG/DL Borderline-High Risk: 200-239 MG/DL High-Risk: 240 MG/DL and over 94 HDL INTERPRETATION: Undesirable: High Risk: Less than 40 MG/DL Desirable: Low Risk: Greater than 60 MG/DL 95 LDL INTERPRETATION: Low Risk Optimal Level: LDL Less than 100 MG/DL Near or Above Optimal: LDL 100-129 MG/DL Borderline High Risk: LDL 130-159 MG/DL High Risk: LDL 160-189 MG/DL Very High Risk: LDL Greater than 189 MG/DL 96 A metabolite of Naproxen, O-desmethylnaproxen, has been shown to interfere with the Jendrassik-[place] method for measuring total bilirubin. Samples from patients who have taken Naproxen have shown spurious elevation in total bilirubin levels. 97 ---- RUN DATE: 04/02/08 [facility] NMI LIVE PAGE 1 RUN TIME: 1537 Specimen Inquiry RUN USER: INTERFACE -- Name: EYAL PIZARRO Status: REG REF Re04/01/08 Age/Sex: 68/M Unit#: [id number] Location: [address] [place] [address]. : 40 -- Specimen: [id number] SOUT Spec Date: 04/01/[address]: Titus francois MD Spec Type: SURGICAL P Received: 04/01/08-6680 Copies to: Kraig jordan MD SPECIMEN COLON POLYP 25 CM. HISTORY CLINICAL INFORMATION: Screening exam GROSS DESCRIPTION The specimen is received in formalin labelled Eyal Pizarro, Colon Polyp at 25 cm., and consists of a east, soft tissue fragment measuring 0.7 x 0.2 x 0.1 cm. Submitted entirely, one cassette. DIAGNOSIS Colon, 25 cm., biopsy: Hyperplastic polyp. Signed Electronically by: JONATHAN SMILEY MD 04/02/08 1537 -- -- DEPARTMENT OF PATHOLOGY, [address] [place] [address] [facility] Permit #[id number] Jonathan Smiley M.D. Director of Laboratories -- 98 * SERUM LEVELS OF PSA MEASURED USING THE DIANE Kleo ACCESS HYBRITECH IMMUNOASSAY SHOULD NOT BE INTERPRETED ABSOLUTE EVIDENCE OF THE PRESENCE OR ABSENCE OF DISEASE. THE PSA VALUE SHOULD BE USED IN CONJUNCTION WITH OTHER PERTINENT CLINICAL DIAGNOSTIC PROCEDURES. 99 CHOLESTEROL INTERPRETATION: Desirable: Less than 200 MG/DL Borderline-High Risk: 200-239 MG/DL High-Risk: 240 MG/DL and over 100 HDL INTERPRETATION: Undesirable: High Risk: Less than 40 MG/DL Desirable: Low Risk: Greater than 60 MG/DL 101 LDL INTERPRETATION: Low Risk Optimal Level: LDL Less than 100 MG/DL Near or Above Optimal: LDL 100-129 MG/DL Borderline High Risk: LDL 130-159 MG/DL High Risk: LDL 160-189 MG/DL Very High Risk: LDL Greater than 189 MG/DL 102 Anion gap measurement may be of limited value in the presence of any alkalosis, especially in a combined acid base disorder. . Procedures Date Code Description Status 10/15/2018 04527 EKG Tracing & Interpretation Completed 07/26/2018 25294 Holter Monitor Review (24 hr)dr review & interp only Completed 07/24/2018 30662 ECG Monitor/Recording W/Visual Superimposition Scanning Completed 12/01/2017 71526 Stress ECHO Interpretation/Report Hospital Completed 12/01/2017 63332 Treadmill Interp/Report Only Completed 12/01/2017 89509 Stress Test Supervsn W/Out I/R Completed 11/20/2017 27826 ECHO Transthorasic Realtime 2D W Doppler & Color Flow Completed Hosp 11/20/2017 30788 ECHO Transthoracic, Real-Time 2D With Doppler And Color Completed Flow 10/20/2017 49217 EKG Tracing & Interpretation Completed 07/20/2017 28267 Inject/Drain Joint/Bursa Major W/O US Completed 10/21/2016 11330 Duplex Scan Extracranial Arteries, Unilateral Or Completed Limited Study 10/20/2016 66028 EKG Tracing & Interpretation Completed 10/03/2016 49571 EKG, Interpretation Only Completed 07/19/2016 06964 EKG Tracing & Interpretation Completed 07/14/2016 41384 ECHO Transthoracic, Real-Time 2D With Doppler And Color Completed Flow 10/27/201503198 Inject/Drain Joint/Bursa Major W/O US Completed 07/16/201533636 Inject/Drain Joint/Bursa Major W/O US Completed 07/16/2015 83313 EEG Recording Awake & Asleep Completed 06/30/2015 19185 RT & lt Cath W/Injx HRT Art&L Ventr Img S&I Completed 06/30/2015 76007 Intravascular Ultrasound (Coron) Completed 06/26/2015 04158 Holter Monitoring 24 HR New Completed 06/24/2015 45204 EKG Tracing & Interpretation Completed 06/23/2015 52456 Stress Test Completed 06/23/2015 50197 Myocardial Perfusion Imaging Tomographic (Spect) Completed Multiple Studies 06/03/2015 97263 ECHO Transthoracic, Real-Time 2D With Doppler And Color Completed Flow 06/02/2015 56454 EKG Tracing & Interpretation Completed 02/23/201558124 Inject/Drain Joint/Bursa Major W/O US Completed 05/22/2014 94248 ECHO Transthoracic, Real-Time 2D With Doppler And Color Completed Flow 11/28/2012 95545 Rad Shoulder Comp, Min. 2 Views Completed 08/11/2011 26727 EKG Tracing & Interpretation Completed 02/10/2011 68795 Rad Exam; Tib-Fib Completed 03/09/2008 49706036 Colonoscopy Completed Encounters Type Date Location Provider Dx Diagnosis Office Visit 10/16/2018 [facility] Ann Sorenson, R06.02 Shortness of 12:10p Medicine - M.D. breath [place] E83.52 Hypercalcemia R20.2 Paresthesia of skin E87.5 Hyperkalemia R06.02 Shortness of breath E83.52 Hypercalcemia R20.2 Paresthesia of skin E87.5 Hyperkalemia Office Visit 10/15/2018 2:30p [facility] Michaelle SYuniel R06.02 Shortness of [place], N.P. breath I35.0 Nonrheumatic aortic (valve) stenosis E78.2 Mixed hyperlipidemia I65.21 Occlusion and stenosis of right carotid artery R53.83 Other fatigue Office Visit 09/27/2018 1:20p [facility] Internal Ann Sorenson M79.604 Pain in right Medicine - M.D. leg [place] Office Visit 07/23/2018 4:20p [facility] Internal Evangelist Li NP R06.83 Snoring Medicine - [place] R42 Dizziness and giddiness J30.89 Other allergic rhinitis Office Visit 05/21/2018 1:00p [facility] Internal Kraig Arnold Z00.01 Encounter for Rubia - Katrina Donovan,FACP general adult [address] medical exam w abnormal findings M54.42 Lumbago with sciatica, left side I65.21 Occlusion and stenosis of right carotid artery E78.2 Mixed hyperlipidemia Office Visit 03/12/2018 Neurosurgery Radha Helm, M48.062 Spinal stenosis, 11:00a Services Of [facility] PA-C lumbar region with neurogenic claudication M43.16 Spondylolisthesis, lumbar region M51.36 Other intervertebral disc degeneration, lumbar region Office Visit 02/06/2018 9:20a [facility] Internal Evangelist Li NP M79.605 Pain in left Medicine - leg [place] R20.0 Anesthesia of skin Office Visit 12/18/2017 9:00a [facility] Internal Evangelist Li M79.606 Pain in leg, Medicine - TELEHEALTH CASE MANAGER unspecified [place] M79.661 Pain in right lower leg Office Visit 10/20/2017 1:40p [facility] Jerrell SYuniel I35.0 Nonrheumatic Of [facility] DO [place] aortic (valve) FAC stenosis R06.02 Shortness of breath I65.21 Occlusion and stenosis of right carotid artery E78.5 Hyperlipidemia, unspecified Office Visit 09/20/2017 2:30p [facility] Vascular Ricardo Rivers M79.606 Pain in leg, Medicine Of Suleman Weaver M.D. unspecified Office Visit 07/20/2017 10:15a Orthopedic Francheska Casas, M19.011 Primary Services Of osteoarthritis, C.M.A. right shoulder S46.011D Strain of musc/tend the rotator cuff of right shoulder, subs Office Visit 07/14/2017 9:00a [facility] Internal Evangelist Li, M79.606 Pain in leg, Medicine - TELEHEALTH CASE MANAGER unspecified [place] I70.209 Unsp athscl [place] arteries of extremities, unsp extremity Office Visit 05/26/2017 9:10a [facility] Dermatology Adolfo Martin MD L57.0 Actinic keratosis B35.1 Tinea unguium B35.3 Tinea pedis B35.6 Tinea cruris L72.8 Other follicular cysts of the skin and subcutaneous tissue L82.1 Other seborrheic keratosis T07 Unspecified multiple injuries Office Visit 05/15/2017 1:00p [facility] Internal Kraig Arnold Z00.01 Encounter for Rubia Donovan M.D.,FACP general adult [address] medical exam w abnormal findings I65.23 Occlusion and stenosis of bilateral carotid arteries E78.5 Hyperlipidemia, unspecified I35.0 Nonrheumatic aortic (valve) stenosis R21 Rash and other nonspecific skin eruption Office Visit 03/15/2017 3:20p [facility] Internal Evangelist Li, M79.604 Pain in right leg Medicine - TELEHEALTH CASE MANAGER [place] Office Visit 03/07/2017 11:40a [facility] Bernie Kong R21 Rash and other Rubia Gibbons M.D. nonspecific skin [place] eruption Office Visit 10/20/2016 11:40a [facility] Jerrell Vences I65.23 Occlusion and Of Suleman Pemberton DO stenosis of FACC bilateral carotid arteries I35.0 Nonrheumatic aortic (valve) stenosis Office Visit 10/14/2016 3:40p [facility] Bernie Arnold K29.60 Other gastritis Rubia Donovan M.D.,FACP without bleeding [address] I35.0 Nonrheumatic aortic (valve) stenosis Office Visit 09/08/2016 11:30a [facility] Bernie Arnold G31.84 Mild cognitive Rubia Donovan M.D.,FACP impairment, so [address] stated H90.3 Sensorineural hearing loss, bilateral Office Visit 08/23/2016 Orthopedic Francheska Casas, S46.121S Lacerat 1:45p Services Of MD cruz/fasc/tend long C.M.A. hd bicep, right arm, sequela S46.011D Strain of anthony/karen the rotator cuff of right shoulder, subs M75.41 Impingement syndrome of right shoulder M19.011 Primary osteoarthritis, right shoulder Office Visit 07/19/2016 9:40a [facility] Jerrell S. I35.0 Nonrheumatic Of [facility] Pember[place], DO aortic (valve) FACC stenosis I73.9 Peripheral vascular disease, unspecified I65.21 Occlusion and stenosis of right carotid artery Office Visit 06/03/2016 2:00p [facility] Bernie Arnold Z00.00 Encntr for Medicine - Tbbeverly Donovan M.D.,FACP general adult Rd medical exam w/o abnormal findings R73.01 Impaired fasting glucose I65.23 Occlusion and stenosis of bilateral carotid arteries Z91.030 Bee allergy status M20.42 Other hammer toe(s) (acquired), left foot I35.0 Nonrheumatic aortic (valve) stenosis Office Visit 11/20/2015 3:00p [facility] Internal Ernie [place], I65.23 Occlusion and Medicine - [place] TELEHEALTH CASE MANAGER stenosis of Rd bilateral carotid arteries E78.5 Hyperlipidemia, unspecified M75.31 Calcific tendinitis of right shoulder R55 Syncope and collapse Office Visit 10/27/2015 11:00a Orthopedic Francheska Casas, S46.021A Laceration of Services Of MD cruz/karen the C.M.A. rotator cuff of r shoulder, init M75.31 Calcific tendinitis of right shoulder S46.121S Lacerat anthony/fasc/tend long hd bicep, right arm, sequela S46.011D Strain of anthony/karen the rotator cuff of right shoulder, subs S46.111D Strain of anthony/fasc/tend long hd bicep, right arm, subs Office Visit 10/05/2015 1:40p [facility] Bernie Arnold K57.32 Dvtrcli of int Rubia Donovan M.D.,FACP w/o perforation [address] or abscess w/o bleeding R55 Syncope and collapse Office Visit 08/13/2015 1:30p Orthopedic Vivek Pedersen, S46.011D Strain of Services Of Katrina cruz/karen the C.M.A. rotator cuff of right shoulder, subs Office Visit 07/17/2015 2:00p [facility] Jerrell Vences R55 Syncope and [place], DO collapse FACC I35.0 Nonrheumatic aortic (valve) stenosis E78.5 Hyperlipidemia, unspecified I65.23 Occlusion and stenosis of bilateral carotid arteries Office Visit 07/07/2015 [facility] Colt Griffin R55 Syncope and 2:40p [facility] AT [facility] MD Maliha, collapse FACC, FSCAI Office Visit 07/06/2015 Neurohospitalist Milton Vences R56.9 Unspecified 10:30a [facility] Katrina Huff convulsions R55 Syncope and collapse Office Visit 07/02/2015 2:20p [facility] Jerrell Vences R55 Syncope and Of [facility] [place], DO FACC collapse I35.0 Nonrheumatic aortic (valve) stenosis I25.10 Athscl heart disease of [place] coronary artery w/o ang pctrs I65.23 Occlusion and stenosis of bilateral carotid arteries Office Visit 06/29/2015 Orthopedic Vivek Pedersen, S46.121S Lacerat 10:15a Services Of Katrina cruz/sekou/karen long C.M.A. hd bicep, right arm, sequela Office Visit 06/24/2015 [place] Jerrell Vences 786.09 Dyspnea & 4:00p Cardiology Of [facility], DO Respiratory [facility] FAC Abnormalities Other 424.1 Aortic Valve Disorder 272.0 Hypercholesterolemia Pure 433.10 Occlusion & Stenosis Carotid Artery W/O Cerebral Infarction 790.21 Impaired Fasting Glucose 794.39 Cardiovascular Study Other Abnormal 780.2 Syncope & Collapse Office Visit 06/02/2015 10:40a [facility] Jerrell Vences 424.1 Aortic Valve Of [facility] [place], DO FACC Disorder 272.0 Hypercholesterolemia Pure 433.10 Occlusion & Stenosis Carotid Artery W/O Cerebral Infarction 786.09 Dyspnea & Respiratory Abnormalities Other 414.00 Coronary Atherosclerosis Unspec Type Vessel Inaja/Graft Office Visit 05/19/2015 11:30a [facility] Internal Kraig Arnold V70.0 Examination Medicine - Katrina Donovan,FACP [facility] Routine AT Health Care Facility 424.1 Aortic Valve Disorder 790.21 Impaired Fasting Glucose 272.0 Hypercholesterolemia Pure 780.79 Malaise And Fatigue Other 726.19 Shoulder Disorders Other Spec 433.10 Occlusion & Stenosis Carotid Artery W/O Cerebral Infarction 600.00 Hypertrophy Prostate W/O Urinary Obstruction & Other Luts V03.82 Streptococcus Pneumoniae Vaccination Spec Other Office Visit 05/14/2015 9:20a Orthopedic Vivek Pedersen, 726.19 Shoulder Disorders Services Of M.DYuniel Other Spec C.M.A. Office Visit 02/23/2015 11:40a Orthopedic Vivek Pedersen 840.4 Sprains & Strains Services Of M.[place] Rotator Cuff C.M.A. (Capsule) Office Visit 09/01/2014 1:00p [facility] Bernie Arnold 477.9 Rhinitis Allergic Rubia Donovan [facility] Alexandre Herndon,[facility] Office Visit 06/10/2014 9:15a Orthopedic Vivek Pedersen 840.4 Sprains & Strains Services Of Katrina Rotator Cuff C.M.A. (Capsule) Office Visit 05/19/2014 9:30a [facility] Bernie Arnold V70.0 Examination Rubia Donovan [facility] Alexandre Herndon,[facility] Routine AT Health Care Facility 433.10 Occlusion & Stenosis Carotid Artery W/O Cerebral Infarction 424.1 Aortic Valve Disorder 840.4 Sprains & Strains Rotator Cuff (Capsule) Office Visit 01/22/2014 11:30a [facility] Bernie Arnold 831.09 Dislocation Rubia Donovan M.D.,[facility] Shoulder Closed [place] Other Office Visit 11/14/2013 3:40p [facility] Bernie Arnold 719.44 Pain Joint Hand [facility]ia [facility] M.D.,[facility] 272.1 Hypertriglyceridemia Pure Office Visit 05/17/2013 1:00p [facility] Bernie Arnold V70.0 Examination Rubia Donovan M.D.,[facility] Routine AT Health Care Facility 272.0 Hypercholesterolemia Pure 433.10 Occlusion & Stenosis Carotid Artery W/O Cerebral Infarction 607.84 Impotence Organic Origin 790.21 Impaired Fasting Glucose 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 Rotator Cuff AT [place] (Capsule) Office Visit 03/27/2013 3:00p Orthopedic Lianet 840.4 Sprains & Strains Services Of Suleman Naik M.D. Rotator Cuff AT [place] (Capsule) Office Visit 11/28/2012 11:15a Orthopedic Lianet 726.19 Shoulder Services Of Suleman Naik M.D. Disorders Other AT [place] Spec Office Visit 11/19/2012 3:20p [facility] Internal Kraig Arnold 726.19 Shoulder Rubia Donovan M.D.,[facility] Disorders Other [place] Spec Office Visit 04/24/2012 9:10a [facility] Internal Kraig Arnold V70.0 Examination Rubia Donovan M.D.,[facility] General Medical [place] Routine AT Health Care Facility 433.10 Occlusion & Stenosis Carotid Artery W/O Cerebral Infarction 272.0 Hypercholesterolemia Pure 275.42 Hypercalcemia 786.09 Dyspnea & Respiratory Abnormalities Other 692.89 Dermatitis Due To Spec Agents Other Office Visit 03/06/2012 8:00a [facility] Internal Lizzie Claire, 735.4 Hammer Toe Medicine - N.P. 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 433.10 Occlusion & Stenosis Carotid Artery W/O Cerebral Infarction Office Visit 02/10/2011 2:00p Orthopedic Eyal Gary, 729.4 Fasciitis Unspec Services Of Katrina Medeiros Office Visit 01/11/2011 9:20a DO Not Use [facility] AT Kraig Arnold 729.5 Pain In Limb Mark Donovan M.D.,FACP 354.0 Carpal Tunnel Syndrome Office Visit 04/15/2010 9:00a DO Not Use [facility] Kraig Arnold 433.10 Occlusion & AT Mark Donovan M.D.,FACP Stenosis Carotid Artery W/O Cerebral Infarction 272.0 Hypercholesterolemia Pure 354.0 Carpal Tunnel Syndrome 424.1 Aortic Valve Disorder 600.20 Benign Localized Hyperplasia Prostate W/O Urinary Obstruct V76.44 Screening For Malig Brian Prostate Office Visit 03/06/2009 1:00p DO Not Use [facility] Kraig Arnold 433.10 Occlusion & AT Mark Donovan M.D.,FACP Stenosis Carotid Artery W/O Cerebral Infarction 272.0 Hypercholesterolemia Pure 424.1 Aortic Valve Disorder 719.46 Pain Joint Lower Leg Office Visit 02/14/2008 9:20a DO Not Use Shactor Kraig Arnold 433.10 Occlusion & AT Mark Donovan M.D.,FACP Stenosis Carotid Artery W/O Cerebral Infarction 272.0 Hypercholesterolemia Pure 268.9 Vitamin D Deficiency Unspec 726.19 Shoulder Disorders Other Spec V76.51 Special Screening For Malignant Neoplasms Colon 173.2 Malignant Neoplasm Skin Ear And External Auditory Canal 785.2 Murmur Cardiac Undiagnosed Plan of Treatment Future Appointment(s):11/05/2018 11:30 am - Jerrell Pemberton DO FACC at [facility]10/26/2018 - Jerrell Pemberton, DO FACCI35.0 Nonrheumatic aortic (valve) stenosisNew Orders:Stress Test, Exercise Echocardiogram, Scheduled: Follow up:Cancel regular echocardiogram Schedule exercise stress echocardiogram Monday11/05/2018 at [facility] with me. f/u 1 yearR06.02 Shortness of cnqfrsI15.23 Occlusion and stenosis of bilateral carotid arteriesNew Xrays:VL Carotid Bilateral, Scheduled: 11/16/18R73.01 Impaired fasting lbqwnwyM13.5 Hyperlipidemia, unspecified
[2018-11-03 15:37] VITALS: BP 126/64
--- NOTE | 2018-11-03 15:51 | UC ---
Skin Complaint HPI - HPI Summary HPI Summary: Swelling on the back of the neck x 1 year now getting more swollen and painful in the last 2 days. No fevers/ sweats/ chills - History of Current Complaint Chief Complaint: UCSkin Time Seen by Provider: 11/03/18 15:41 Stated Complaint: NECK SKIN COMPLAINT Hx Obtained From: Patient Onset/Duration: Gradual Onset, Lasting Days - 2, Worse Since - yesterday Onset Severity: Mild Current Severity: Mild Pain Intensity: 3 Location: Discrete - back of the neck Character: Swelling, Pain, Redness, Raised Aggravating Factor(s): Nothing Alleviating Factor(s): Nothing Associated Signs & Symptoms: Positive: Tenderness. Negative: Diaphoresis, Fever , Chills, Drainage - Allergy/Home Medications Allergies/Adverse Reactions: Allergies Allergy/AdvReac Type Severity Reaction Status Date / Time pseudoephedrine Allergy Unknown Verified 11/03/18 15:37 [From Sudafed] Reaction Details beesting Allergy Severe anaphylacti Uncoded 11/03/18 15:37 c PMH/Surg Hx/FS Hx/Imm Hx Other GI/ History: BPH Other Cancer History: Melanoma Other History Of: Negative For: HIV, Hepatitis B, Hepatitis C, Anticoagulant Therapy - aspirin - Surgical History Surgical History: Yes Surgery Procedure, Year, and Place: appendectomy, hernia repair, carpal tunnel bilat,ear lobe melanoma. L4-5 laminectomy 09/25/18 - Family History Known Family History: Positive: Cardiac Disease, Diabetes Negative: Hypertension - Social History Occupation: Retired Lives: With Family Alcohol Use: Rare Alcohol Amount: 1 drink/wk Substance Use Type: None Smoking Status (MU): Former Smoker Type: Cigarettes Length of Time of Smoking/Using Tobacco: 9 - 1967 Have You Smoked in the Last Year: No - Immunization History Most Recent Influenza Vaccination: 2014 Most Recent Tetanus Shot: up to date Most Recent Pneumonia Vaccination: a couple years ago Review of Systems All Other Systems Reviewed And Are Negative: Yes Skin: Positive: Other - Swelling tenderness base of the neck Is Patient Immunocompromised?: No Physical Exam Triage Information Reviewed: Yes Appearance: Well-Appearing, No Pain Distress, Well-Nourished Vital Signs: Initial Vital Signs Temp 97.8 F 11/03/18 15:31 Pulse 69 11/03/18 15:31 Resp 16 11/03/18 15:31 BP 126/64 11/03/18 15:31 Pulse Ox 97 11/03/18 15:31 Vital Signs Reviewed: Yes Eyes: Positive: Conjunctiva Clear ENT: Positive: Pharynx normal, TMs normal Neck exam: Normal Respiratory Exam: Normal Cardiovascular: Positive: RRR, Murmur:Sys:Grade _?_/ - 12/12 Musculoskeletal Exam: Normal Neurological Exam: Normal Psychological Exam: Normal Skin: Positive: Other - 4x4 cm erythematous swollen, warm tender area right base of the neck Course/Dx - Differential Diagnoses - Skin Complaint Differential Diagnoses: Abscess, Cellulitis, Impetigo, Scarlat[place] - Diagnoses Provider Diagnosis: Cutaneous abscess of trunk Discharge - Sign-Out/Discharge Documenting (check all that apply): Patient Departure All imaging exams completed and their final reports reviewed: No Studies - Discharge Plan Condition: Stable Disposition: HOME Prescriptions: Sulfamethox/Trimethoprim DS* [Bactrim DS 800/160 TAB*] 1 tab PO BID #20 tab Patient Education Materials: Abscess (ED), Sulfamethoxazole/Trimethoprim (By mouth) Referrals: Kraig Donovan MD [Primary Care Provider] - - Billing Disposition and Condition Condition: STABLE Disposition: Home
== END 2018-11-03 16:12 | disposition home or self-care (01) ==
LOC: UCCORT 14:56
DX: L02.219 Cutaneous abscess of trunk, unspecified (principal); Z88.8 Allergy status to other drugs, medicaments and biological substances; Z91.030 Bee allergy status; Z87.891 Personal history of nicotine dependence
CPT/HCPCS: 99212; G0463

== ENCOUNTER → 2019-02-15 07:57 | Day surgery (SDC) | payer MEDICARE ==
--- NOTE | 2019-01-29 07:30 | HP ---
CC: Dr. Patrice Vann; Dr. Greg Gibbons * ADMISSION HISTORY AND PHYSICAL: DATE OF ADMISSION: 02/15/19 ATTENDING SURGEON: Dr. Lauren Negrete.* (DICTATED BY SANTO IVORY) CHIEF COMPLAINT: Hyperparathyroidism. HISTORY OF PRESENT ILLNESS: This is a 79-year-old male who apparently late in 2018 was noted to have hypercalcemia. This apparently preceded a lumbar laminectomy done at [facility] in [place], [place]. He had confirmation of his hypercalcemia on 10/16/18 and looking back, he has had at least some intermittent mild hypercalcemia even in recent years. Previously, he had been found to have a normal parathyroid hormone level, but more recently on 10/16/18, this was found to be elevated at 16.3 and has been confirmed on repeat testing. His 24-hour urine calcium was also elevated. He has had some history of mild depression, but no history of renal stones. A DEXA scan on was in the osteopenia range. He was evaluated by Dr. Vann. An ultrasound done on 11/29/18 showed an ill-defined right inferoposterior thyroid nodule measuring 1.8 x 1.5 x 1.1 cm. 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 There was also noted to be a 1 cm left thyroid nodule. That was subsequently biopsied on 12/20/18 with benign findings. The right thyroid nodule was unable to be visualized at that time. A subsequent nuclear medicine SPECT CT on 01/03/19 was negative for any abnormal or increased enhancement. An ultrasound from that same date did not show any significant change from the prior ultrasound. The patient was seen initially by Dr. Negrete on 12/13/18 and then again on 01/07/19. A dedicated CT scan without and with IV contrast was done on 01/07/19 showing a right posterior mid thyroid nodule measuring 7 x 4 mm in addition to multiple small lymph nodes and a 4 mm right upper lobe lung nodule, which was previously discussed with the patient and felt not to require further workup or surveillance. The patient does have zumvoqzv-lp-pdsiqn aortic stenosis (see below). Dr. Negrete has discussed with him the indications for surgery, the risks, benefits, and alternatives. He is pursuing a second opinion at [facility] on 02/07/19. At this point, he is planning to proceed as scheduled with parathyroidectomy, possible 4-gland exploration. PAST MEDICAL HISTORY: Primary hyperparathyroidism, uksotwqo-fb-sgonqq aortic stenosis [stress echocardiogram done on 11/05/18 showed a maximum velocity of 3.8 m/sec (increased from 3.6 on prior study from 1 year earlier); mean gradient was 35 mmHg (increased from 32 mm on prior study); the aortic valve area was estimated at 0.92 cm2. These changes were felt to be stable by Dr. Pemberton (see separate report)]. The patient has a history of iiyy-gc-wmbazlgj carotid stenosis, lumbar degenerative disk disease and lumbar spinal stenosis with neurogenic claudication, osteoarthritis (multiple joints), and mild depression. PAST SURGICAL HISTORY: In September 2018, L4-L5 laminectomy at [facility]. He is also status post appendectomy, left inguinal herniorrhaphy, and bilateral carpal tunnel release. No reported surgical or anesthesia problems. CURRENT MEDICATIONS: 1. Mobic 15 mg once daily. 2. Atorvastatin 40 mg once daily. 3. Flomax 0.4 mg once daily. 4. Aspirin 81 mg 2 tablets once daily (instructed to hold for 1 week preoperatively). 5. Gabapentin 300 mg once daily. 6. Trazodone 50 mg q.h.s. 7. He has an EpiPen for bee stings. He takes the following supplements: 1. Vitamin D3 at 2000 IU once daily. 2. B12 at 500 mcg once daily. 3. Vitamin C 500 mg once daily. DRUG ALLERGIES: SUDAFED (hives and urinary hesitancy). FAMILY HISTORY: Negative for anesthesia problems, bleeding or clotting disorders, and also negative for endocrine malignancy. SOCIAL HISTORY: The patient is . His accompanies him today. He is retired from [employer]. He is a former smoker of approximately 10-pack years who quit in 1967. He denies use of alcohol or recreational drugs. REVIEW OF SYSTEMS: General: No recent constitutional symptoms or acute illnesses. He did have an incision and debridement of an infected sebaceous cyst of the posterior neck in November [address] Alvarado. HEENT: No additions to above. Cardiovascular: No chest pain, palpitations, lightheadedness. See stress echo report from 11/05/18. Respiratory: No chronic cough or shortness of breath. GI: No problems reported. He has had prior colonoscopies. : No problems reported. Endocrine: Hyperparathyroidism as noted above. No history of diabetes or thyroid dysfunction. Thyroid nodules as noted above. Musculoskeletal: Lumbar degenerative disk disease and spinal stenosis, stable and improved after most recent surgery. He continues to undergo physical therapy. Neuro/Psych: No additions to above. PHYSICAL EXAMINATION GENERAL: A well-nourished, well-developed male, in no acute distress. VITAL SIGNS: Height 71 inches, weight 173 pounds. Blood pressure 118/60, pulse 60. HEENT: Pupils are equal, round, and reactive. EOMs intact. No conjunctival pallor. Oropharynx: No intraoral lesions. NECK: No thyromegaly, masses, or palpable lymphadenopathy. LUNGS: Clear to auscultation. No rales or wheezes. HEART: Regular rate and rhythm. ABDOMEN: Soft, nontender to palpation. No palpable masses or organomegaly. GENITALIA: Not done. RECTAL: Not done. BACK: No spinous process or CVA tenderness. EXTREMITIES: No edema. NEUROLOGICAL: Grossly intact. SKIN: Warm and dry. No suspicious rashes or lesions. IMPRESSION: Primary hyperparathyroidism. PLAN: Parathyroidectomy; possible 4-gland exploration. SANTO IVORY [id number]/[facility] #: [id number] WMCHEALTHJeanne
[~2019-02-15 07:57] MED LIST: Buffered Lidocaine 1% SYRIN* 1 ML/SYRINGE INTRADERM ONE; Dexamethasone IV* 4 MG/ML 1 ML (4 MG) IV SLOW PU ONE; Famotidine IV* 10 MG/ML 2 ML (20 mg) IV ONE; Lactated Ringers 1000 ML Bag* 1,000 ML IV SCH
--- NOTE | 2019-02-15 16:24 | CONS ---
CC: Dr. Pemberton; Dr. Donovan; Dr. Negrete, surgeon; Dr. Sanford CONSULTATION REPORT: DATE OF CONSULT: 02/15/19 HISTORY OF PRESENT ILLNESS: I was asked by Dr. Negrete and Anesthesia for a preoperative risk certification clearance for this 79-year-old male patient who came in as an outpatient for a parathyroid surgery under general anesthesia. The patient does have a known history of severe aortic stenosis. I did review fully the evaluation from Dr. Pemberton, his primary child care coordinator. Back in , he had a stress echo. His baseline echo was described to have normal left ventricular size and function, EF 65%. Although it was stated moderate to severe aortic stenosis, the hemodynamics were the mean gradient 35 mmHg, the velocity across the aortic valve was 3.8 m/s and the aortic valve area calculated at 0.92 cm2 with a DI of 0.26. The post echo stress showed no ischemia; however, it was noted the resting blood pressure for the patient was 123/65 mmHg, 165/58 mmHg maximum blood pressure, and at peak exercise, it did decrease to 129/50 mmHg, which is significant. The patient did have a history of syncope 3 years ago. In 2014, he had a cardiac catheterization on 07/30/[address] Jett and was found to have extensive atherosclerosis, coronary artery disease without significant stenosis. Normal left ventricular systolic function. 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 That was in the slab off mill tender. At that time, the aortic stenosis was described to be mild. The patient currently is scheduled for outpatient parathyroid surgery under general anesthesia. He gives no symptoms of chest pain, no shortness of breath, no orthopnea, no PNDs, no dizziness, no syncope, no fever. No palpitations. No tachycardia. No nausea, no vomiting, no hematochezia is appreciated. His review of all other systems essentially is negative. PAST MEDICAL HISTORY: Include the history of parathyroid disease, hyperparathyroidism, peripheral vascular disease, coronary artery disease, diverticular disease of the colon, carotid artery stenosis bilaterally, impaired fasting glycemia, and vitamin D deficiency and hyperlipidemia. PAST SURGICAL HISTORY: Includes: 1. Appendicectomy. 2. History of carpal tunnel release. 3. Laminectomy in September 2018. 4. Hernia repair, inguinal, on the left side. MEDICATIONS: As an outpatient, include: 1. Mobic 50 mg 1 daily. 3. Lipitor 40 mg daily. 4. Aspirin 81 mg daily. 5. Vitamin D3, B12, and vitamin C daily. ALLERGIES: Allergic to BEE STINGS and SUDAFED. FAMILY HISTORY: No family history of premature CAD. SOCIAL HISTORY: He is . Lives with his . Retired. He had a history of smoking; he quit in 1967, 1 pack per day. No alcoholism, no drug abuse. REVIEW OF SYSTEMS: Review of all other systems essentially is negative. PHYSICAL EXAM: On exam, he is awake, alert, and oriented. He is not in acute distress. Vitals reveal blood pressure 120/70. Head and Neck Exam: Normocephalic, atraumatic head. Ears, Nose, and Throat: Essentially benign. Neck: Supple. JVP is not elevated. No carotid bruits. No masses in the neck are appreciated. Chest: Clear to auscultation. No rales, no wheeze. No added sounds appreciated. Heart: Normal S1, S2, no added sounds. No gallops and no rubs. There is a grade 4/6 systolic murmur in the left sternal border. Abdomen: Benign, soft. Positive bowel sounds. Extremities: No edema, no cyanosis, no clubbing. Skin exam is normal. Psych: Normal affect and mood. VETERINARY TECHNICIAN ASSISTANT: No focal deficit is appreciated. IMPRESSION: The patient is a 79-year-old male patient who is scheduled for an outpatient parathyroid surgery under general anesthesia and asked for cardiology preop clearance. I am very concerned about his aortic stenosis, hemodynamics as indicated above including his aortic valve area and his mean gradient and I am also concerned about the hemodynamic changes with the drop in his blood pressure at peak exercise, although the patient gives no specific symptoms at the present time of his aortic stenosis. After a lengthy talk with the patient, his who was at the bedside and from Surgery with Dr. Negrete herself and also Anesthesia at the present time will postpone the patient's scheduled outpatient surgery. I understand it is elective and it is not emergent to be done. He will have a followup with his primary child care coordinator, Dr. Pemberton for further recommendations timing edwards for his aortic valve stenosis for future surgery and for preop clearance. I explained this to the patient. I answered all their concerns and questions up to their satisfaction and they will follow up closely. Thank you very much for asking us to participate in the care of this patient. [id number]/[facility] #: [id number] ERYN
== END | disposition home or self-care (01) ==
LOC: OR 07:57
PROVIDERS: ATTEND Surgery
DX: Z53.09 Procedure and treatment not carried out because of other contraindication (principal); E21.3 Hyperparathyroidism, unspecified; I35.0 Nonrheumatic aortic (valve) stenosis

== ENCOUNTER → 2019-03-19 10:23 | Day surgery (SDC) | payer MEDICARE ==
[~2019-03-19 10:23] MED LIST changes: +Acetaminophen TAB* 325 MG PO PRN; +Ascorbic Acid TAB* 500 MG PO SCH; +Aspirin EC TAB* 81 MG TAB.EC PO SCH; +Atorvastatin* 40 MG TAB PO SCH; -Buffered Lidocaine 1% SYRIN* 1 ML/SYRINGE INTRADERM ONE; +Cholecalciferol TAB* 1000 UNITS PO SCH; +Cyanocobalamin TAB* 500 MCG PO SCH; -Dexamethasone IV* 4 MG/ML 1 ML (4 MG) IV SLOW PU ONE; +EPINEPHRINE INJ PRN; -Famotidine IV* 10 MG/ML 2 ML (20 mg) IV ONE; +Gabapentin CAP(*) 300 MG PO SCH; +Heparin 2 UNITS/ML IVPREMIX* 3,000 UNIT/1,500 ML BAG IV ONE; +Heparin(*) 1000 UNIT/ML 10 ML VIAL CATH LAB IV ONE; +Iohexol 350 (CONTRAST) 200 ML MDV IV ONE; -Lactated Ringers 1000 ML Bag* 1,000 ML IV SCH; +Lidocaine 1% INJ* 10 MG/ML 30 ML SDV ONE; +Meloxicam(NF) 15 MG TAB PO SCH; +Midazolam* 1 MG/ML 5 ML VIAL (5 MG) ONE; +NS 0.9% 1000 ML** 1,000 ML IV SCH; +Tamsulosin CAP* 0.4 MG PO SCH; +VERAPAMIL 2.5 MG/ML 2 ML VIAL ** 5 mg/2 ml ONE; +fentaNYL* 50 MCG/ML 2 ML VIAL (100 MCG VIAL) ONE; +nitroGLYCERIN DRIP* 25,000 MCG/250 ML BTL ONE; +traZODone TAB* 50 MG TAB PO SCH
[2019-03-19 14:44] VITALS: BP 135/63
--- NOTE | 2019-03-19 16:28 | CATH ---
CC: Dr. Greg Gibbons; Dr. Pemberton; Dr. De Souza * CATH REPORT: DATE OF PROCEDURE: 03/19/19 PRIMARY CARE PHYSICIAN: Dr. Greg Gibbons. POWDER COMPOUNDER: Dr. Pemberton. STRUCTURAL POWDER COMPOUNDER: Dr. De Souza. PROCEDURE: 1. Right radial artery access with ultrasound assistance. 2. Bilateral selective coronary cineangiography. HISTORY: A 79-year-old male with now symptomatic moderately severe aortic stenosis, referred for coronary angiography prepotential TAVR. Cardiac cath in June 2015 revealed nonobstructive heavily calcified coronary arteries with 3 quadrants of calcification in the left main, but no evidence of an aneurysm or dissection. He now has exertional dyspnea, with exercise he had a fall in systolic blood pressure. PROCEDURE ACCESS: Right radial artery with ultrasound assistance, sheath 6F slender. MEDICATIONS: 1. Subcu lidocaine. 2. IV Versed. 3. IV fentanyl. 4. Heparin 3000 units. 5. Verapamil 3 mg. 6. Nitroglycerin 300 mcg IA. DIAGNOSTIC CATHETERS: 5F TIG4, 5FR4. HEMODYNAMICS: Initial AO: 88/48, final BP 116/62. ANGIOGRAPHY: There is a heavy calcification of the aortic valve leaflets with markedly diminished excursion. He also has heavy calcification on the right and left coronary arteries, as before. Left main: The left main again has a superior outpouching seen on the prior study, which does not represent aneurysm or dissection per prior intravascular ultrasound. The left main ostium has at most a 30% stenosis. LAD: The LAD is large, heavily calcified, extends past the apex, it supplies a large diagonal which has ostial 30% stenosis, is preceded by smooth 30% stenosis. The LAD has no significant stenosis. Circumflex: The circumflex is large, not dominant, supplies a moderate ramus branch, a moderate first marginal, ends with a smaller posterolateral, the circumflex has minor luminal irregularity, but no significant stenosis. RCA: The RCA is dominant, large, tortuous, and heavily calcified with scattered luminal regularity, but no significant stenosis. The PDA is moderate , followed by a larger posterolateral. The RCA has no significant stenosis. CONCLUSION: 1. Heavily calcified right and left coronary arteries without significant obstructive disease. 2. Successful right radial artery access. [id number]/[facility] #: [id number] [facility]
== END | disposition home or self-care (01) ==
LOC: CHICATH 10:23
PROVIDERS: ATTEND Internal Medicine Cardiovascular Disease
DX: I35.0 Nonrheumatic aortic (valve) stenosis (principal); I25.10 Atherosclerotic heart disease of native coronary artery without angina pectoris; I65.29 Occlusion and stenosis of unspecified carotid artery; E78.5 Hyperlipidemia, unspecified; E21.3 Hyperparathyroidism, unspecified; R06.00 Dyspnea, unspecified
CPT/HCPCS: 93454; 99156; 99157; J1644; J2250; J3010

== ENCOUNTER 2019-11-03 14:23 | Emergency (ER) | payer MEDICARE ==
--- OUTSIDE RECORDS SUMMARY | 2019-11-03 14:31 | XMS REPORT | Continuity of Care Document ---
:1940 External Reference #:[id number] Author Name Jerrell Pemberton, DO FACC (transmitted by agent of provider Margaret Lehman) Address [address] [place] [address] Care Team Providers Name Role Phone Titus Allen MD - Gastroenterology Care Team Information Sailing Master Jonathan Lake MD - Plastic Care Team Information Sailing Master [phone] and Reconstructive Surgery Dave Garza MD - Urology Care Team Information Sailing Master [phone] Chelsey Austin MD - Neurology Care Team Information Sailing Master Eyal Gary MD - Orthopaedic Care Team Information Sailing Master Surgery Jennyfer Richards MD - Hand Surgery Care Team Information Sailing Master [place] Physical Therapy Care Team Information Sailing Master [place] - Physical Therapist Francheska Casas MD - Orthopaedic Care Team Information Sailing Master Surgery Greg Gibbons III, MD - Internal Care Team Information Sailing Master Medicine [facility] - Sleep Disorder Care Team Information Sailing Master [phone] Diagnostic Problems Active Problems Provider Date Atresia and stenosis of aorta Kraig Donovan M.D.,FACP Onset: 04/21/2011 Note: moderate-severe Carotid artery stenosis Kraig Donovan M.D.,FACP Onset: 05/19/2015 Note: bilat Pure hypercholesterolemia Kraig Donovan M.D.,FACP Onset: 02/14/2008 Vitamin D deficiency Kraig Donovan M.D.,FACP Onset: 02/14/2008 History of malignant neoplasm of skin Kraig Donovan M.D.,FACP Onset: 06/2013 Strain of rotator cuff capsule Kraig Donovan M.D.,FACP Onset: 05/17/2013 Note: RIGHT with subacromial bursitis Impaired fasting glycaemia Kraig Donovan M.D.,FACP Onset: 05/17/2013 Diverticular disease of colon Kraig Donovan M.D.,FACP Onset: 10/05/2015 Allergy to bee venom Kraig Donovan M.D.,FACP Onset: 06/03/2016 Localized, primary osteoarthritis of Francheska Casas MD Onset: 07/20/2017 the shoulder region Peripheral vascular disease Kraig Donovan M.D.,FACP Onset: 08/16/2017 Hyperparathyroidism Ann Sorenson M.D. Onset: 10/17/2018 Hyperlipidemia Greg Gibbons M.D. Onset: 06/03/2019 Social History Type Date Description Comments Sex Unknown Cigarette Use Quit 40 Years Ago Pt denies ever smoking a pipe, cigars, or e-cigarettes. Pt denies ever using chewing tobacco. 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 Allergies, Adverse Reactions, Alerts Active Allergies Reaction Severity Comments Date Bee Stings Anaphylaxis Severe 02/13/2008 Sudafed Urticaria Severe urinary hesitancy 02/13/2008 Medications Active Medications SIG Qnty Indications Ordering Date Provider Pantoprazole Sodium Jerrell Vences 04/09/2019 DO LIZ Pemberton 40mg Tablets Trazodonseble HCL Take 1/2 To 1 Tablet 30tabs Greg Kong 10/17/2018 50mg By Mouth AT Bedtime Katrina Gibbons Tablets as Needed Shingrix 0.5 milliliters 2units Kraig Arnold 05/21/2018 50mcg intramuscular now Katrina Donovan,FACP Suspension Rec and 2-3 months later repeat Epipen 2-Fredi use as directed 2units Z91.030 Kraig Arnold 06/03/2016 Katrina Donovan,FACP 0.3mg/0.3ML Solution Auto-Inject Atorvastatin Calcium 1 by mouth every day 90tabs Kraig Arnold 06/02/2015 Katrina Donovan,FACP 40mg Tablets Flomax take 1 capsule every 90caps N40.0 Kraig Arnold 05/19/2015 0.4mg Capsules day Katrina Donovan,JOSE Aspirin 1 tablet po qd Kraig Arnold 04/15/2010 81mg Tablets Katrina Donovan,FACP Vitamin D3 High 1 by mouth every day Unknown Potency 1000Unit Capsules Vitamin B12 1 tablet po daily Unknown 5000mcg Vitamin C 1 by mouth every day Unknown 500mg Tablets Plavix 1 by mouth every day Unknown 75mg Tablets History Medications Benzonatate 1-2 tab by mouth 30caps J06.9 Greg Kong 07/04/2019 - 100mg three times desiree Gibbons M.D. 09/22/2019 Capsules day as needed Medications Administered in Office Medication SIG Qnty Indications Ordering Provider Date Depomedrol 40MG Lianet Naik M.D. 09/18/2019 Injection Shingrix no bill inj-pt Unknown 10/30/2018 brought in Injection Triamcinolone (Kenalog) Francheska Casas MD 07/20/2017 Injection Triamcinolone (Kenalog) Francheska Casas MD 10/27/2015 Injection Depomedrol 80MG Vivek Pedersen M.D. 07/16/2015 Injection Technetium TC 99M Jerrell Pemberton DO [facility] 06/23/2015 Tetrofosmin, Per Unit Dose Up To 40 Millicuries Injection Depomedrol 80MG Vivek Pedersen M.D. 02/23/2015 Injection Immunizations CPT Code Status Date Vaccine Lot # [id number] Given 06/25/2019 Influenza Virus Vaccine, Quadrivalent, Split, Preservative Free 84631 Given 08/03/2018 Fluzone High Dose 12242 Given 06/23/2018 Zoster (Shingles) Vaccine (HZV), Recombinant, Subunit, Adjuvanted 49845 Given 07/28/2017 Influenza Virus Vaccine, Quadrivalent, Split, Preservative Free 48892 Given 05/15/2016 Fluzone High Dose 61985 Given 08/23/2015 Fluzone High Dose 66076 Given 05/19/2015 Pneumococcal Conjugate Vaccine 13 Valent For [id number] Intramuscular Use 05998 Given 07/30/2014 Flu Vaccine Split Virus Preservative Free For Indiv 3Yr Older Q2037 Given 05/30/2013 Fluvirin Im 3Yrs And Older 56811 Given 08/19/2012 Influenza Virus 3Yrs & Over 36224 Given 03/06/2012 Tdap - Tetanus/Diptheria/Acellular Pertussis [id number] Q2035 Given 08/11/2011 Afluria Vaccine 43888 Given 03/12/2009 Zoster (Zostavax) [id number] 27301 Given 07/28/2005 Pneumonia Vaccine Vital Signs Date Vital Result Comment 09/23/2019 3:34pm Height 71 inches 5'11" Weight 167.00 lb Heart Rate 62 /min BP Systolic Sitting 112 mmHg Rue reg cuff BP Diastolic Sitting 68 mmHg Rue reg cuff BP Systolic Standing 108 mmHg Rue reg cuff BP Diastolic Standing 58 mmHg Rue reg cuff Respiratory Rate 16 /min BMI (Body Mass Index) 23.3 kg/m2 Ejection Fraction 60-65% ECHO 04/29/2019 09/18/2019 2:02pm Height 71 inches 5'11" Weight 173.00 lb Heart Rate 70 /min BP Systolic 110 mmHg BP Diastolic 60 mmHg Body Temperature 97.0 F Pain Level 5 BMI (Body Mass Index) 24.1 kg/m2 Results Test Acquired Date Facility Test Result H/L Range Note Laboratory test 09/20/2019 [facility] PSA Screening 5.792 High 0-4.[address] ng/[place] [address] [phone] Basic Metabolic 07/19/2019 [facility] Sodium 141 mmol/L Normal 135-[address] [place], [place] [id number] [phone] Potassium 4.3 mmol/L Normal 3.5-5.0 Chloride 108 mmol/L Normal 101-111 Co2 Carbon Dioxide 29 mmol/L Normal 22-32 Anion Gap 4 mmol/L Normal 2-11 Glucose 92 mg/dL Normal 70-100 Blood Urea Nitrogen 15 mg/dL Normal 6-24 Creatinine 0.85 mg/dL Normal 0.67-1.17 BUN/Creatinine Ratio 17.6 Normal 8-20 Calcium 10.1 mg/dL Normal 8.6-10.3 Egfr Non- 87.0 >60 Egfr 105.2 >60 2 Liver Function 07/09/2019 [facility] Total Protein 6.6 g/dL Normal 6.4-8.9 Panel [address] [place] [address] [phone] Albumin 4.3 g/dL Normal 3.2-5.2 Globulin 2.3 g/dL Normal 2-4 Albumin/Globulin Ratio 1.9 Normal 1-3 Total Bilirubin 0.60 mg/dL Normal 0.2-1.0 Direct Bilirubin 0.10 mg/dL Normal 0.03-0.18 Indirect Bilirubin 0.5 mg/dL Normal 0.3-1.0 Alkaline Phosphatase 69 U/L Normal 34-104 Alt 19 U/L Normal 7-52 Ast 18 U/L Normal 13-39 Stool Occult BLD 06/14/2019 [facility] In House Occult Blood - neg x 3 1-3 SPCS Diag Stool cards Comp Metabolic 06/03/2019 [facility] Sodium 141 mmol/L Normal 135-145 Panel [address] [place] [address] [phone] Potassium 4.7 mmol/L Normal 3.5-5.0 Chloride 106 mmol/L Normal 101-111 Co2 Carbon Dioxide 28 mmol/L Normal 22-32 Anion Gap 7 mmol/L Normal 2-11 Glucose 87 mg/dL Normal 70-100 Blood Urea Nitrogen 18 mg/dL Normal 6-24 Creatinine 0.93 mg/dL Normal 0.67-1.17 BUN/Creatinine Ratio 19.4 Normal 8-20 Calcium 10.9 mg/dL High 8.6-10.3 Total Protein 6.8 g/dL Normal 6.4-8.9 Albumin 4.7 g/dL Normal 3.2-5.2 Globulin 2.1 g/dL Normal 2-4 Albumin/Globulin Ratio 2.2 Normal 1-3 Total Bilirubin 0.60 mg/dL Normal 0.2-1.0 Alkaline Phosphatase 70 U/L Normal 34-104 Alt 83 U/L High 7-52 Ast 41 U/L High 13-39 Egfr Non- 78.4 >60 Egfr 94.8 >60 3 Protein 06/03/2019 [facility] Total 6.8 g/dL 6.3 - Electrophoresis [address] Protein(Pep) 7.9 [place] [address] [phone] Albumin 3.8 g/dL 3.4-4.7 Alpha-1 Globulin 0.3 g/dL 0.1-0.3 Alpha-2 Globulin 0.8 g/dL 0.6-1.0 Beta Globulin 1.0 g/dL 0.7-1.2 Gamma Globulin 0.9 g/dL 0.6-1.6 Albumin/Globulin Ratio 1.28 Impression See Comment 4 CBC Auto 06/03/2019 [facility] White Blood 4.0 10^3/uL Normal 3.5-10.[address] [place] [address] [phone] Red Blood Count 4.29 10^6/uL Normal 4.18-5.48 Hemoglobin 14.3 g/dL Normal 14.0-18.0 Hematocrit 42 % Normal 42-52 Mean Corpuscular Volume 97 fL High 80-94 Mean Corpuscular Hemoglobin 33 pg High 27-31 Mean Corpuscular HGB Conc 35 g/dL Normal 31-36 Red Cell Distribution Width 13 % Normal 10-15 Platelet Count 175 10^3/uL Normal 150-450 Mean Platelet Volume 8.5 fL Normal 7.4-10.4 Abs Neutrophils 1.9 10^3/uL Normal 1.5-7.7 Abs Lymphocytes 0.9 10^3/uL Low 1.0-4.8 Abs Monocytes 1.1 10^3/uL High 0-0.8 Abs Eosinophils 0.1 10^3/uL Normal 0-0.6 Abs Basophils 0.0 10^3/uL Normal 0-0.2 Abs Nucleated RBC 0.0 10^3/uL Granulocyte % 46.8 % Lymphocyte % 22.4 % Monocyte % 27.1 % Eosinophil % 3.0 % Basophil % 0.7 % Nucleated Red Blood Cells % 0.1 Laboratory 06/03/2019 [facility] TSH (Thyroid 1.21 Normal 0.34 -5.60 test finding [address] Stim Horm) mcIU/[place] [address] [phone] Lipid Profile 05/29/2019 [facility] Triglycerides 175 mg/dL 5 (Trig/Chol/HD [address] L) [place] [address] [phone] Cholesterol 137 mg/dL 6 HDL Cholesterol 44.5 mg/dL 7 LDL Cholesterol 58 mg/dL 8 1 Serum levels of PSA measured using the [employer] DXI Hybritech immunoassay should not be interpreted as absolute evidence of the presence or absence of disease. The PSA value should be used in conjunction with other pertinent clinical diagnostic procedures. The values obtained with different assay methods or kits cannot be used interchangeably. 2 Because ethnic data is not always [...] 5 Kidney failure <15 (or dialysis) 3 Because ethnic data is not always readily [...] 15-29 5 Kidney failure <15 (or dialysis) 4 RESULT: No apparent monoclonal protein on serum electrophoresis. Test Performed by: [facility] [address] [place] [address] 5 Desirable: <150 Borderline High: 150-199 High: 200-499 Very High: >500 6 Desirable: <200 Borderline High: 200-239 High: >239 7 Low: <40 Desirable: 40-60 High: >60 8 Desirable: <100 Near Optimal: 100-129 Borderline High: 130-159 High: 160-189 Very High: >189 Procedures Date Code Description Status 04/29/2019 87573 ECHO Transthoracic, Real-Time 2D With Doppler And Completed Color Flow 04/29/2019 02399 ECHO Transthoracic, Real-Time 2D With Doppler And Completed Color Flow 04/29/2019 72420 EKG Tracing & Interpretation Completed 04/10/2019 61948 EKG Tracing & Interpretation Completed 11/29/2018 [id number] Bone Mineral Density Test Completed 03/09/2008 78214409 Colonoscopy Completed Medical Devices Description No Information Available Encounters Type Date Location Provider Dx Diagnosis Office Visit 07/04/2019 Suleman Kong J06.9 Acute upper 3:40p Medicine Toni Gibbons M.D. respiratory infection, unspecified Office Visit 06/03/2019 Suleman Kong Z00.00 Encntr for general 10:20a Medicine - Kelly Gibbons M.D. 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 E21.0 Primary hyperparathyroidism R53.83 Other fatigue Office Visit 04/10/2019 1:40p [place] [facility] Jerrell SYuniel Z95.2 Presence of Of Suleman Pemberton DO prosthetic heart FACC valve R73.01 Impaired fasting glucose E78.5 Hyperlipidemia, unspecified I65.23 Occlusion and stenosis of bilateral carotid arteries E21.0 Primary hyperparathyroidism Z95.3 Presence of xenogenic heart valve Office Visit 03/25/2019 4:40p [place] [facility] Jerrell SYuniel I35.0 Nonrheumatic Of Suleman Pemberton, DO aortic (valve) FAC stenosis R73.01 Impaired fasting glucose E78.5 Hyperlipidemia, unspecified I65.23 Occlusion and stenosis of bilateral carotid arteries Assessments Date Code Description Provider 09/23/2019 Z95.2 Presence of prosthetic heart valve Jerrell Pemberton, DO [facility] 09/18/2019 M75.42 Impingement syndrome of left shoulder Lianet Naik M.D. 07/04/2019 J06.9 Acute upper respiratory infection, Greg Gibbons M.D. unspecified 06/14/2019 R19.5 Other fecal abnormalities Nurse Visit A 06/14/2019 R19.5 Other fecal abnormalities Greg Gibbons M.D. 06/03/2019 Z00.00 Encounter for general adult medical Greg Gibbons M.D. examination without abnormal findings 06/03/2019 E78.5 Hyperlipidemia, unspecified Greg Gibbons M.D. 06/03/2019 Z95.2 Presence of prosthetic heart valve Greg Gibbons M.D. 06/03/2019 I65.23 Occlusion and stenosis of bilateral Greg Gibbons M.D. carotid arteries 06/03/2019 E21.0 Primary hyperparathyroidism Greg Gibbons M.D. 06/03/2019 R53.83 Other fatigue Greg Gibbons M.D. 04/29/2019 I35.0 Nonrheumatic aortic (valve) stenosis Traveling ECHO 1 04/29/2019 Z95.2 Presence of prosthetic heart valve Jerrell Pemberton, DO [facility] 04/29/2019 Z95.2 Presence of prosthetic heart valve Traveling ECHO 1 04/10/2019 Z95.2 Presence of prosthetic heart valve Jerrell Pemberton, DO [facility] 04/10/2019 R73.01 Impaired fasting glucose Jerrell Pemberton, DO [facility] 04/10/2019 E78.5 Hyperlipidemia, unspecified Jerrell Pemberton, DO [facility] 04/10/2019 I65.23 Occlusion and stenosis of bilateral Jerrell Pemberton, DO [facility] carotid arteries 04/10/2019 E21.0 Primary hyperparathyroidism Jerrellmilind Khouryno, DO [facility] 04/10/2019 Z95.3 Presence of xenogenic heart valve Jerrell Ru Pemberton, DO [facility] 03/25/2019 I35.0 Nonrheumatic aortic (valve) stenosis Jerrell Ru Pemberton, DO [facility] 03/25/2019 R73.01 Impaired fasting glucose Jerrell Pemberton, DO [facility] 03/25/2019 E78.5 Hyperlipidemia, unspecified Jerrell Ru Pemberton, DO [facility] 03/25/2019 I65.23 Occlusion and stenosis of bilateral Jerrell Pemberton, DO [facility] carotid arteries Plan of Treatment Future Appointment(s):10/14/2019 2:30 pm - Aniyah Rod MD [facility]09/23/2019 - Jerrell Pemberton DO FACCZ95.2 Presence of prosthetic heart valveComments:- It has been 6 months since the TAVR. You can stop taking plavix (clopidogrel) and pantoprazole (protonix)Follow up:f/u 1 year Functional Status Description No Information Available Mental Status Description No Information Available Referrals Refer to Reason for Referral Status Appt Date Francheska Casas MD recurrent shoulder pain sx Sent 09/09/2019 [address] [facility] [place] [address] [place] [address] [phone] [facility] fatigue, abnormal overnight oximetry Sent 10/14/2019 [address] [address] [phone] Titus Allen MD ? due for a repeat colon exam Closed 07/17/[address] [place] [address] [phone]
--- OUTSIDE RECORDS SUMMARY | 2019-11-03 14:31 | XMS REPORT | Continuity of Care Document ---
:1940 External Reference #:[id number] Author Name Titus Allen MD Address [address] [place] [id number] Care Team Providers Name Role Phone Greg Gibbons MD Care Team Information Special Delivery Mail Carrier [phone] Problems Active Problems Provider Date Anal and rectal polyp Titus Allen MD Onset: 02/12/2015 Social History Type Date Description Comments Sex Unknown Tobacco Use Start: Unknown End: Unknown Patient is a former smoker Smoking Status Reviewed: 07/17/19 Patient is a former smoker Allergies, Adverse Reactions, Alerts Active Allergies Reaction Severity Comments Date Sudafed 07/17/2019 Inactive Allergies NKDA 02/12/2015 Medications Active Medications SIG Qnty Indications Ordering Provider Date Vitamin D3 Titus Allen, 07/17/2019 Aspirin 2 daily Unknown 81mg Tablets Vitamin C 1 by mouth every Unknown 500mg Tablets day Trazodone HCL Greg Gibbons MD 50mg Tablets Pantoprazole Sodium Take 1 Tablet By Unknown Mouth Every Day 40mg Tablets Tamsulosin HCL Kraig Donovan, 0.4mg Capsules Clopidogrel Bisulfate Unknown 75mg Tablets Atorvastatin Calcium Kraig Donovan, 40mg Tablets Vitamin B12 1 by mouth every Unknown 1000mcg day- sublingual- Tablets ER for vitamin b12 deficiency Immunizations Description No Information Available Vital Signs Date Vital Result Comment 07/17/2019 3:25pm Height 71 inches 5'11" Weight 173.00 lb BP Systolic 122 mmHg BP Diastolic 71 mmHg Heart Rate 65 /min BMI (Body Mass Index) 24.1 kg/m2 06/21/2019 2:38pm Height 71 inches 5'11" Weight 169.00 lb BMI (Body Mass Index) 23.6 kg/m2 Results Description No Information Available Procedures Description No Information Available Medical Devices Description No Information Available Encounters Description No Information Available Assessments Date Code Description Provider 07/17/2019 K62.1 Rectal polyp Titus Allen MD Plan of Treatment 07/17/2019 - Titus Allen MDK62.1 Rectal polypComments:I had a long discussion with the patient and his regarding his need for repeat colonoscopy. Heis doing great at this time he denies any symptoms. He again does not want a repeat colonoscopy he understands the risks and is willing to proceed without a colonoscopy he will call me with any questions concerns or changes Functional Status Description No Information Available Mental Status Description No Information Available Referrals Description No Information Available
--- OUTSIDE RECORDS SUMMARY | 2019-11-03 14:31 | XMS REPORT | Continuity of Care Document ---
:1940 External Reference #:[id number] Author Name Lianet Naik M.D. (transmitted by agent of provider Edmond De Leon) Address [address] [facility] [place] [address] Care Team Providers Name Role Phone Titus Allen MD - Gastroenterology Care Team Information Headlight Assembler [phone] Jonathan Lake MD - Plastic Care Team Information Headlight Assembler and Reconstructive Surgery Dave Garza MD - Urology Care Team Information Headlight Assembler [phone] Chelsey Austin MD - Neurology Care Team Information Headlight Assembler [phone] Eyal Gary MD - Orthopaedic Care Team Information Headlight Assembler Surgery Jennyfer Richards MD - Hand Surgery Care Team Information Headlight Assembler [place] Physical Therapy Care Team Information Headlight Assembler [phone] [place] - Physical Therapist Francheska Casas MD - Orthopaedic Care Team Information Headlight Assembler Surgery Greg Gibbons III, MD - Internal Care Team Information Headlight Assembler [phone] Medicine [facility] Sleep Clinic - Sleep Disorder Care Team Information Headlight Assembler [phone] Diagnostic Problems Active Problems Provider Date Atresia [...] 1967 1ppd Unknown smoker Smoking Status Reviewed: 09/18/19 Patient is a former quit in 1967 1ppd smoker Exercise Type/Frequency Exercises regularly 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 Allergies, Adverse Reactions, Alerts Active Allergies Reaction Severity Comments Date Bee Stings Anaphylaxis Severe 02/13/2008 Sudafed Urticaria Severe urinary hesitancy 02/13/2008 Medications Active Medications SIG Qnty Indications Ordering Date Provider Benzonatate 1-2 tab by mouth 30caps J06.9 Greg Kong 07/04/2019 100mg three times a day as Katrina Gibbons Capsules needed Pantoprazole Sodium Jerrell SYuniel 04/09/2019 DO LIZ Pemberton 40mg Tablets DR Mcnulty HCL Take 1/2 To 1 Tablet 30tabs Greg Luann 10/17/2018 50mg By Mouth AT Bedtime Katrina [...] Kraig Arnold 05/19/2015 0.4mg Capsules day Katrina Donovan,FACP Aspirin 1 tablet po qd Kraig Arnold 04/15/2010 81mg Tablets Katrina Donovan,FACP Vitamin D3 High 1 by mouth every day Unknown Potency 1000Unit Capsules Vitamin B12 1 tablet po daily Unknown 5000mcg Vitamin C 1 by mouth every day Unknown 500mg Tablets Plavix 1 by mouth every day Unknown 75mg Tablets Medications Administered in Office Medication SIG Qnty Indications Ordering Provider Date Shingrix no bill inj-pt Unknown 10/30/2018 brought in Injection Triamcinolone (Kenalog) Francheska Casas MD 07/20/2017 Injection Triamcinolone (Kenalog) Francheska Casas MD 10/27/2015 Injection Depomedrol 80MG Vivek Pedersen M.D. 07/16/2015 Injection Technetium TC 99M Jerrell Pemberton DO [facility] 06/23/2015 Tetrofosmin, Per Unit Dose Up To 40 Millicuries Injection Depomedrol 80MG Vivek Pedersen M.D. 02/23/2015 Injection Immunizations CPT Code Status Date Vaccine Lot # [id number] Given 06/25/2019 Influenza Virus Vaccine, Quadrivalent, Split, Preservative Free 50547 Given 08/03/2018 Fluzone High Dose 18034 Given 06/23/2018 Zoster (Shingles) Vaccine (HZV), Recombinant, Subunit, Adjuvanted 65221 Given 07/28/2017 Influenza Virus Vaccine, Quadrivalent, Split, Preservative Free 21637 Given 05/15/2016 Fluzone High Dose 53389 Given 08/23/2015 Fluzone High Dose 37108 Given 05/19/2015 Pneumococcal Conjugate Vaccine 13 Valent For [id number] Intramuscular Use 47887 Given 07/30/2014 Flu Vaccine Split Virus Preservative Free For Indiv 3Yr Older Q2037 Given 05/30/2013 Fluvirin Im 3Yrs And Older 49599 Given 08/19/2012 Influenza Virus 3Yrs & Over 90021 Given 03/06/2012 Tdap - Tetanus/Diptheria/Acellular Pertussis [id number] Q2035 Given 08/11/2011 Afluria Vaccine 50843 Given 03/12/2009 Zoster (Zostavax) [id number] 04906 Given 07/28/2005 Pneumonia Vaccine Vital Signs Date Vital Result Comment 09/18/2019 2:02pm Height 71 inches 5'11" Weight 173.00 lb Heart Rate 70 /min BP Systolic 110 mmHg BP Diastolic 60 mmHg Body Temperature 97.0 F Pain Level 5 BMI (Body Mass Index) 24.1 kg/m2 07/04/2019 4:12pm Height 71 inches 5'11" Weight 174.00 lb Heart Rate 62 /min BP Systolic Sitting 103 mmHg BP Diastolic Sitting 59 mmHg Body Temperature 97.0 F O2 % BldC Oximetry 98 % BMI (Body Mass Index) 24.3 kg/m2 Results Test Acquired Date Facility Test Result H/L Range Note Basic Metabolic 07/19/2019 [facility] Sodium 141 mmol/L Normal 135-145 Panel [address] [place] [address] [phone] Potassium 4.3 mmol/L Normal 3.5-5.0 Chloride 108 mmol/L Normal 101-111 Co2 Carbon Dioxide 29 mmol/L Normal 22-32 Anion Gap 4 mmol/L Normal 2-11 Glucose 92 mg/dL Normal 70-100 Blood Urea Nitrogen 15 mg/dL Normal 6-24 Creatinine 0.85 mg/dL Normal 0.67-1.17 BUN/Creatinine Ratio 17.6 Normal 8-20 Calcium 10.1 mg/dL Normal 8.6-10.3 Egfr Non- 87.0 >60 Egfr 105.2 >60 1 Liver Function 07/09/2019 [facility] Total Protein 6.6 g/dL Normal 6.4-8.[address] [place], [place] [id number] [phone] Albumin 4.3 g/dL Normal 3.2-5.2 Globulin 2.3 g/dL Normal 2-4 Albumin/Globulin Ratio 1.9 Normal 1-3 Total Bilirubin 0.60 mg/dL Normal 0.2-1.0 Direct Bilirubin 0.10 mg/dL Normal 0.03-0.18 Indirect Bilirubin 0.5 mg/dL Normal 0.3-1.0 Alkaline Phosphatase 69 U/L Normal 34-104 Alt 19 U/L Normal 7-52 Ast 18 U/L Normal 13-39 Stool Occult BLD 06/14/2019 Occupational Analyst In House Occult Blood - neg x 3 1-3 SPCS Diag Stool cards Comp Metabolic 06/03/2019 [facility] Sodium 141 mmol/L Normal 135-[address] [place], [place] [id number] [phone] Potassium 4.7 mmol/L Normal 3.5-5.0 Chloride 106 [...] Egfr Non- 78.4 >60 Egfr 94.8 >60 2 Protein 06/03/2019 [facility] Total 6.8 g/dL 6.3 - Electrophoresis [address] Protein(Pep) 7.9 [place] [address] [phone] Albumin 3.8 g/dL 3.4-4.7 Alpha-1 Globulin 0.3 g/dL 0.1-0.3 Alpha-2 Globulin 0.8 g/dL 0.6-1.0 Beta Globulin 1.0 g/dL 0.7-1.2 Gamma Globulin 0.9 g/dL 0.6-1.6 Albumin/Globulin Ratio 1.28 Impression See Comment 3 CBC Auto 06/03/2019 [facility] White Blood 4.0 10^3/uL Normal 3.5-10.[address] [place] [address] [phone] Red Blood Count 4.29 10^6/uL Normal 4.18-5.48 [...] Red Blood Cells % 0.1 Laboratory 06/03/2019 [facility] TSH (Thyroid 1.21 Normal 0.34 -5.60 test finding [address] Stim Horm) mcIU/[place] [address] [phone] Lipid Profile 05/29/2019 [facility] Triglycerides 175 mg/dL 4 (Trig/Chol/HD [address] L) [place] [address] [phone] Cholesterol 137 mg/dL 5 HDL Cholesterol 44.5 mg/dL 6 LDL Cholesterol 58 mg/dL 7 1 Because ethnic data is not always readily [...] 15-29 5 Kidney failure <15 (or dialysis) 2 Because ethnic data is not always [...] 5 Kidney failure <15 (or dialysis) 3 RESULT: No apparent monoclonal protein on serum electrophoresis. Test Performed by: [facility] [address] [place] [address] 4 Desirable: <150 Borderline High: 150-199 High: 200-499 Very High: >500 5 Desirable: <200 Borderline High: 200-239 High: >239 6 Low: <40 Desirable: 40-60 High: >60 7 Desirable: <100 Near Optimal: 100-129 Borderline High: 130-159 High: 160-189 Very High: >189 Procedures Date Code Description Status 04/29/2019 12746 ECHO Transthoracic, Real-Time 2D With Doppler And Completed Color Flow 04/29/2019 62373 ECHO Transthoracic, Real-Time 2D With Doppler And Completed Color Flow 04/29/2019 24242 EKG Tracing & Interpretation Completed 04/10/2019 92753 EKG Tracing & Interpretation Completed 11/29/2018 [id number] Bone Mineral Density Test Completed 03/09/2008 87102801 Colonoscopy Completed Medical Devices Description No Information Available Encounters Type Date Location Provider Dx Diagnosis Office Visit 07/04/2019 [facility] Internal Greg Kong J06.9 Acute upper 3:40p Medicine Toni Gibbons M.D. respiratory infection, unspecified Office Visit 06/03/2019 [facility] Internal Greg Kong Z00.00 Encntr for general 10:20a Medicine Toni Gibbons M.D. 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 Z95.2 Presence of Of Occupational Analyst Pemberton, DO prosthetic heart FACC valve R73.01 Impaired fasting glucose E78.5 Hyperlipidemia, unspecified I65.23 Occlusion and stenosis of bilateral carotid arteries E21.0 Primary hyperparathyroidism Z95.3 Presence of xenogenic heart valve Office Visit 03/25/2019 4:40p [place] [facility] Jerrell S. 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 R73.01 Impaired fasting glucose E78.5 Hyperlipidemia, unspecified I65.23 Occlusion and stenosis of bilateral carotid arteries Assessments Date Code Description Provider 09/18/2019 M75.42 Impingement syndrome of left shoulder [...] of prosthetic heart valve Jerrell Pemberton, DO FAC 04/29/2019 Z95.2 Presence of prosthetic heart valve Traveling ECHO 1 04/10/2019 Z95.2 Presence of prosthetic heart valve Jerrell Pemberton, DO [facility] 04/10/2019 R73.01 Impaired fasting glucose Jerrell Pemberton, DO [facility] 04/10/2019 E78.5 Hyperlipidemia, unspecified Jerrell SYuniel Pemberton, DO [facility] 04/10/2019 I65.23 Occlusion and stenosis of bilateral Jerrell Pemberton, DO [facility] carotid arteries 04/10/2019 E21.0 Primary hyperparathyroidism Jerrell Pemberton, DO [facility] 04/10/2019 Z95.3 Presence of xenogenic heart valve Jerrell Pemberton, DO [facility] 03/25/2019 I35.0 Nonrheumatic aortic (valve) stenosis Jerrell Pemberton, DO [facility] 03/25/2019 R73.01 Impaired fasting glucose Jerrell Pemberton, DO FAC 03/25/2019 E78.5 Hyperlipidemia, unspecified Jerrell SYuniel Pemberton, DO [facility] 03/25/2019 I65.23 Occlusion and stenosis of bilateral Jerrell Mireles. Nilay, DO [facility] carotid arteries Plan of Treatment Future Appointment(s):10/14/2019 2:30 pm - Aniyah Rod MD at [facility]09/18/2019 - Lianet Naik M.D.M75.42 Impingement syndrome of left shoulderFollow up:Follow up: As needed Functional Status Description No Information Available Mental Status Description No Information Available Referrals Refer to Dr Reason for Referral Status Appt Date Francheska Casas MD recurrent shoulder pain sx Sent 09/09/2019 [address] [facility] [place] [address] [place] [id number] [phone] [facility] Sleep Clinic fatigue, abnormal overnight oximetry Sent 10/14/[address] [place], [place] [id number] [phone] Titus Allen MD ? due for a repeat colon exam Closed 07/17/[address] [place], [place] [address] [phone]
--- OUTSIDE RECORDS SUMMARY | 2019-11-03 14:31 | XMS REPORT | Continuity of Care Document ---
:1940 External Reference #:[id number] Author Name Aniyah Rod MD (transmitted by agent of provider Janis Mcknight) Address [address], [address] [place] [address] Care Team Providers Name Role Phone Titus Allen MD - Gastroenterology Care Team Information Hand Cigar Maker Jonathan [place] MD - Plastic Care Team Information Hand Cigar Maker and Reconstructive Surgery Dave Garza MD - Urology Care Team Information Hand Cigar Maker [phone] Chelsey Austin MD - Neurology Care Team Information Hand Cigar Maker [phone] Eyal Gary MD - Orthopaedic Care Team Information Hand Cigar Maker Surgery Jennyfer Richards MD - Hand Surgery Care Team Information Hand Cigar Maker [place] Physical Therapy Care Team Information Hand Cigar Maker [place] - Physical Therapist Francheska Casas MD - Orthopaedic Care Team Information Hand Cigar Maker [phone] Surgery Greg Gibbons III, MD - Internal Care Team Information Hand Cigar Maker Medicine [facility] Sleep Clinic - Sleep Disorder Care Team Information Hand Cigar Maker [phone] Diagnostic Problems Active Problems Provider Date Atresia [...] 1967 1ppd Unknown smoker Smoking Status Reviewed: 10/14/19 Patient is a former quit in 1967 1ppd smoker Exercise Type/Frequency Exercises regularly 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 - finished Allergies, Adverse Reactions, Alerts Active Allergies Reaction Severity Comments Date Bee Stings Anaphylaxis Severe 02/13/2008 Sudafed Urticaria Severe urinary hesitancy 02/13/2008 Medications Active Medications SIG Qnty Indications Ordering Date Provider Pantoprazole Brenda Vences 04/09/2019 DO LIZ Pemberton 40mg Tablets Trazodonseble HCL Take 1/2 To 1 Tablet 30tabs Greg Kong 10/17/2018 50mg By Mouth AT Bedtime Katrina Gibbons Tablets as Needed Shingrix 0.5 milliliters 2units Kraig Arnold 05/21/2018 50mcg intramuscular now Kartina Donovan,FACP Suspension Rec and 2-3 months later [...] by mouth every day Unknown 500mg Tablets History Medications Benzonatate 1-2 tab by mouth 30caps J06.9 Greg E. 07/04/2019 - 100mg three times a Katrina Gibbons 09/22/2019 Capsules day as needed Medications Administered in Office Medication SIG Qnty Indications Ordering Provider Date Depomedrol 40MG Lianet Naik M.D. 09/18/2019 Injection Shingrix no bill inj-pt Unknown 10/30/2018 brought in Injection Triamcinolone (Kenalog) Francheska Casas MD 07/20/2017 Injection Triamcinolone (Kenalog) Francheska Casas MD 10/27/2015 Injection Depomedrol 80MG Vivek Pedersen M.D. 07/16/2015 Injection Technetium TC 99M Jerrell Pemberton DO [facility] 06/23/2015 Tetrofosmin, Per Unit Dose Up To 40 Millicuries Injection Depomedrol 80MG Vivek Pedersen M.D. 02/23/2015 Injection Immunizations CPT Code Status Date Vaccine Lot # [id number] Given 06/25/2019 Influenza Virus Vaccine, Quadrivalent, Split, Preservative Free 02564 Given 08/03/2018 Fluzone High Dose 63021 Given 06/23/2018 Zoster (Shingles) Vaccine (HZV), Recombinant, Subunit, Adjuvanted 86432 Given 07/28/2017 Influenza Virus Vaccine, Quadrivalent, Split, Preservative Free 64179 Given 05/15/2016 Fluzone High Dose 70036 Given 08/23/2015 Fluzone High Dose 45635 Given 05/19/2015 Pneumococcal Conjugate Vaccine 13 Valent For [id number] Intramuscular Use 97691 Given 07/30/2014 Flu Vaccine Split Virus Preservative Free For Indiv 3Yr Older Q2037 Given 05/30/2013 Fluvirin Im 3Yrs And Older 45985 Given 08/19/2012 Influenza Virus 3Yrs & Over 27033 Given 03/06/2012 Tdap - Tetanus/Diptheria/Acellular Pertussis [id number] Q2035 Given 08/11/2011 Afluria Vaccine 31373 Given 03/12/2009 Zoster (Zostavax) [id number] 13916 Given 07/28/2005 Pneumonia Vaccine Vital Signs Date Vital Result Comment 10/14/2019 2:27pm Height 71 inches 5'11" Weight 167.00 lb Heart Rate 63 /min BP Systolic Sitting 140 mmHg BP Diastolic Sitting 80 mmHg O2 % BldC Oximetry 94 % BMI (Body Mass Index) 23.3 kg/m2 09/23/2019 3:34pm Height 71 inches 5'11" Weight 167.00 lb Heart Rate 62 /min BP Systolic Sitting 112 mmHg Rue reg cuff BP Diastolic Sitting 68 mmHg Rue reg cuff BP Systolic Standing 108 mmHg Rue reg cuff BP Diastolic Standing 58 mmHg Rue reg cuff Respiratory Rate 16 /min BMI (Body Mass Index) 23.3 kg/m2 Ejection Fraction 60-65% ECHO 04/29/2019 Results Test Acquired Date Facility Test Result H/L Range Note Laboratory test 09/20/2019 [facility] PSA Screening 5.792 High 0-4.[address] ng/[place] [address] [phone] Basic Metabolic 07/19/2019 [facility] Sodium 141 mmol/L Normal 135-[address] [place] [address] [phone] Potassium 4.3 mmol/L Normal 3.5-5.0 Chloride 108 mmol/L Normal 101-111 Co2 Carbon Dioxide 29 mmol/L Normal 22-32 Anion Gap 4 mmol/L Normal 2-11 Glucose 92 mg/dL Normal 70-100 Blood Urea Nitrogen 15 mg/dL Normal 6-24 Creatinine 0.85 mg/dL Normal 0.67-1.17 BUN/Creatinine Ratio 17.6 Normal 8-20 Calcium 10.1 mg/dL Normal 8.6-10.3 Egfr Non- 87.0 >60 Egfr 105.2 >60 2 Liver Function 07/09/2019 [facility] Total Protein 6.6 g/dL Normal 6.4-8.9 Panel [address] [place] [address] [phone] Albumin 4.3 g/dL Normal 3.2-5.2 Globulin 2.3 g/dL Normal 2-4 Albumin/Globulin Ratio 1.9 Normal 1-3 Total Bilirubin 0.60 mg/dL Normal 0.2-1.0 Direct Bilirubin 0.10 mg/dL Normal 0.03-0.18 Indirect Bilirubin 0.5 mg/dL Normal 0.3-1.0 Alkaline Phosphatase 69 U/L Normal 34-104 Alt 19 U/L Normal 7-52 Ast 18 U/L Normal 13-39 Stool Occult BLD 06/14/2019 [employer] In House Occult Blood - neg x 3 1-3 SPCS Diag Stool cards Comp Metabolic 06/03/2019 [facility] Sodium 141 mmol/L Normal 135-145 Panel [address] [place] [address] [phone] Potassium 4.7 mmol/L Normal 3.5-5.0 Chloride 106 [...] >60 Egfr 94.8 >60 3 Protein 06/03/2019 [facility] Total 6.8 g/dL 6.3 - Electrophoresis [address] Protein(Pep) 7.9 [place], [place] [id number] [phone] Albumin 3.8 g/dL 3.4-4.7 Alpha-1 Globulin 0.3 g/dL 0.1-0.3 Alpha-2 Globulin 0.8 g/dL 0.6-1.0 Beta Globulin 1.0 g/dL 0.7-1.2 Gamma Globulin 0.9 g/dL 0.6-1.6 Albumin/Globulin Ratio 1.28 Impression See Comment 4 CBC Auto 06/03/2019 [facility] White Blood 4.0 10^3/uL Normal 3.5-10.[address] [place] [address] [phone] Red Blood Count 4.29 10^6/uL Normal 4.18-5.48 [...] Red Blood Cells % 0.1 Laboratory 06/03/2019 [facility] TSH (Thyroid 1.21 Normal 0.34 -5.60 test finding [address] Stim Horm) mcIU/[place] [address] [phone] Lipid Profile 05/29/2019 [facility] Triglycerides 175 mg/dL 5 (Trig/Chol/HD [address] L) [place] [address] [phone] Cholesterol 137 mg/dL 6 HDL Cholesterol 44.5 mg/dL 7 LDL Cholesterol 58 mg/dL 8 1 Serum levels of PSA measured using the [employer] DXI Hybritech immunoassay should not be interpreted [...] protein on serum electrophoresis. Test Performed by: [facility] [address] [place] [address] 5 Desirable: <150 Borderline High: 150-199 High: 200-499 Very High: >500 6 Desirable: <200 Borderline High: 200-239 High: >239 7 Low: <40 Desirable: 40-60 High: >60 8 Desirable: <100 Near Optimal: 100-129 Borderline High: 130-159 High: 160-189 Very High: >189 Procedures Date Code Description Status 09/18/2019 16886 Inject/Drain Joint/Bursa Major W/O US Completed 04/29/2019 66689 ECHO Transthoracic, Real-Time 2D With Doppler And Completed Color Flow 04/29/2019 75321 ECHO Transthoracic, Real-Time 2D With Doppler And Completed Color Flow 04/29/2019 93283 EKG Tracing & Interpretation Completed 11/29/2018 [id number] Bone Mineral Density Test Completed 03/09/2008 [id number] Colonoscopy Completed Medical Devices Description No Information Available Encounters Type Date Location Provider Dx Diagnosis Office Visit 10/14/2019 [facility] Aniyah Rod MD R06.83 Snoring 2:30p Services [facility] R09.02 Hypoxemia Office Visit 09/23/2019 3:40p [place] [facility] Jerrell Vences Z95.2 Presence of Of Suleman Pemberton DO prosthetic heart FACC valve E78.5 Hyperlipidemia, unspecified I65.23 Occlusion and stenosis of bilateral carotid arteries R73.01 Impaired fasting glucose Office Visit 09/18/2019 Delfino Martini M75.42 Impingement 1:30p Orthopedics at Katrina Naik syndrome of left [place] shoulder Office Visit 07/04/2019 Suleman Kong J06.9 Acute upper 3:40p Rubia Gibbons M.D. respiratory infection, unspecified Office Visit 06/03/2019 [facility] Bernie Kong Z00.00 Encntr for 10:20a Rubia Gibbons M.D. 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 09/23/2019 E78.5 Hyperlipidemia, unspecified Jerrellmilind Khouryno, DO [facility] 09/23/2019 I65.23 Occlusion and stenosis of bilateral Jerrell Pemberton, DO [facility] carotid arteries 09/23/2019 R73.01 Impaired fasting glucose Jererllmilind Khouryno, DO [facility] 09/18/2019 M75.42 Impingement syndrome of left shoulder Lianet Naik M.D. 07/04/2019 J06.9 Acute upper respiratory infection, Greg Gibbons M.D. unspecified 06/14/2019 R19.5 Other fecal abnormalities Nurse Visit A 06/14/2019 R19.5 Other fecal abnormalities Greg Gibbons M.D. 06/03/2019 Z00.00 Encounter for general adult medical Greg Gibbons M.D. examination without abnormal findings 06/03/2019 E78.5 Hyperlipidemia, unspecified rGeg Gibbons M.D. 06/03/2019 Z95.2 Presence of prosthetic heart valve Greg Gibbons M.D. 06/03/2019 I65.23 Occlusion and stenosis of bilateral Greg Gibbons M.D. carotid arteries 06/03/2019 E21.0 Primary hyperparathyroidism Greg Gibbons M.D. 06/03/2019 R53.83 Other fatigue Greg Gibbons M.D. 04/29/2019 I35.0 Nonrheumatic aortic (valve) stenosis Traveling ECHO 1 04/29/2019 Z95.2 Presence of prosthetic heart valve Jerrell Pemberton, DO [facility] 04/29/2019 Z95.2 Presence of prosthetic heart valve Traveling ECHO 1 Plan of Treatment Future Appointment(s):11/13/2019 11:00 am - Lianet Manning NP at [facility]10/14/2019 - BYRON Santiago06.83 SnoringNew Orders:Home Sleep Testing, Scheduled: 10/14/19Follow up:2 qpbleE50.02 Hypoxemia Functional Status Description No Information Available Mental Status Description No Information Available Referrals Refer to Reason for Referral Status Appt Date Dave Garza MD elevated PSA Sent [address] [place] [address] [place] [address] [phone] Francheska Casas MD recurrent shoulder pain sx Sent 09/09/2019 16 [facility] [place] [address] [place] [id number] [phone] [facility] Sleep Clinic fatigue, abnormal overnight oximetry Sent 10/14/2019 [address] [place] [address] [phone] Titus [place] MD ? due for a repeat colon exam Closed 07/17/[address] [place] [address] [phone]
[2019-11-03] MEDS ORDERED: NS 0.9% 1000 ML** 1,000 ML IV ONE (14:50)
[2019-11-03] MEDS ORDERED: Aspirin 81 mg CHEW TAB* 81 MG TAB.CHEW PO ONE (14:51)
--- NOTE | 2019-11-03 14:56 | UC ---
Dizzy HPI HPI Summary: Patient is 79 year old gentleman, who presents today to the urgent care with lightheaded/dizzy since Monday, had parathyroid removed on 10/28/19, denies any chest pain , nausea or shortness of breath. No fever or urinary symptoms He denies any other symptoms. Denies any abdominal pain , nausea or vomiting , diarrhea or constipation. - History Of Current Complaint Chief Complaint: UCGeneralIllness Stated Complaint: LIGHTHEADED,DIZZINESS Time Seen by Provider: 11/03/19 14:39 Hx Obtained From: Patient Pain Intensity: 0 - Allergies/Home Medications Allergies/Adverse Reactions: Allergies Allergy/AdvReac Type Severity Reaction Status Date / Time pseudoephedrine Allergy Unknown Verified 11/03/19 14:33 [From Orthob[facility]ed] Reaction Details beesting Allergy Severe anaphylacti Uncoded 11/03/19 14:33 c PMH/Surg Hx/FS Hx/Imm Hx - Additional Past Medical History Additional PMH: Past Medical History : Yes: Nodules primary hyperparathyroidism, hyperglycemia Past Surgical History: Cardiac Aortic Valve replacement 04/27 , [place], [place] Parathyroid removed 10/28/19 L4-5 laminectomy 09/25/18 [facility] Bilateral Carpal Tunnel 2010 & 2011 Appendectomy 1950 Left Inguinal Hernia 1998 Family History : non contributory Social History : no alcohol, former smoker, no drug use. Previously Healthy: Yes Other History Of: Negative For: HIV, Hepatitis B, Hepatitis C, Anticoagulant Therapy - aspirin - Surgical History Surgical History: Yes Surgery Procedure, Year, and Place: Cardiac Aortic Valve replacement 04/27 , [place], [place]. Parathyroid removed 10/28/19. L4-5 laminectomy 09/25/18 [facility]. Bilateral Carpal Tunnel 2010 & 2011. Appendectomy 1950. Left Inguinal Hernia 1998 - Family History Known Family History: Positive: Cardiac Disease, Diabetes, Non-Contributory Negative: Hypertension - Social History Alcohol Use: None Alcohol Amount: 1 drink/wk Substance Use Type: None Smoking Status (MU): Former Smoker Type: Cigarettes Amount Used/How Often: off and on for 10 years Length of Time of Smoking/Using Tobacco: 1958 - 1967 Have You Smoked in the Last Year: No When Did the Patient Quit Smoking/Using Tobacco: 60 years ago - Immunization History Most Recent Influenza Vaccination: 2014 Most Recent Tetanus Shot: up to date Most Recent Pneumonia Vaccination: a couple years ago Review of Systems All Other Systems Reviewed And Are Negative: Yes Constitutional: Positive: Negative Skin: Positive: Negative Eyes: Positive: Negative ENT: Positive: Negative Respiratory: Positive: Negative. Negative: Shortness Of Breath Cardiovascular: Positive: Negative. Negative: Palpitations, Chest Pain Gastrointestinal: Positive: Negative Genitourinary: Positive: Negative Motor: Positive: Negative Neurovascular: Positive: Negative Musculoskeletal: Positive: Negative Neurological: Positive: Other - light headed, dizzy Psychological: Positive: Negative Is Patient Immunocompromised?: No Physical Exam - Summary Physical Exam Summary: Physical Exam: Const: Appears well. No signs of apparent distress present. Alert and oriented x 3. Musculo: Walks with a normal gait. Head/Face: Atraumatic, normocephalic on inspection. Eyes: EOMI and PERRLA in both eyes. Conjunctivae clear. No discharge noted ENT: Hearing normal. Wound dressing noted on the anterior neck. Respiratory: Respirations are unlabored. Lungs clear to auscultation bilaterally, no wheezing , rhonchi or rales noted . CVS: Regular rate and Rhythm, S1S2 normal , no murmurs identified. Extremities: Peripheral circulation is grossly normal. Pulses 2+ Abdomen : Soft non tender , nondistended , Bowel sounds present . No guarding , rebound tenderness or rigidity noted. Skin: No lesions or rash located on the upper extremities or on the lower extremities. Neuro: Cranial nerves II to XII intact, motor and sensory intact. DTR Intact bilaterally. Mood is normal. Affect is normal. GCS: 15 Triage Information Reviewed: Yes Vital Signs: Initial Vital Signs Temp 97.8 F 11/03/19 14:27 Pulse 60 11/03/19 14:27 Resp 16 11/03/19 14:27 BP 125/53 11/03/19 14:27 Pulse Ox 99 11/03/19 14:27 Vital Signs Reviewed: Yes Diagnostics - EKG Cardiac Rate: NL Cardiac Rhythm: Sinus: Normal Ectopy: None ST Segment: Other Summary of EKG Findings: normal sinus rythm, rate in 60's, mild CIARAN in V2,V3 and lead II, TWI in lead V1. no recioprocal change. normal TX and normal QRS, normal axis. Dizzy Course/Dx - Course Course Of Treatment: During the visit today, we obtained EKG: normal sinus rythm, rate in 60's, mild CIARAN in V2,V3 and lead II, TWI in lead V1. no reciprocal change. normal TX and normal QRS, normal axis. We discussed the findings and further plan. Patient needs additional testing, thus ER transfer advised and patient agrees. Report called to the ER provider( ) at [facility], advised provider of the history, physical examination, and duration of illness and so far and the need for definitive management. IV line was started and he was given aspirin. Patient is being transferred to [facility] via ambulance. Vitals stable at the time of discharge - Differential Dx/Diagnosis Provider Diagnosis: Ischemic heart disease, Acute coronary syndrome Discharge ED - Sign-Out/Discharge Documenting (check all that apply): Patient Departure All imaging exams completed and their final reports reviewed: No Studies - Discharge Plan Condition: Stable Disposition: TRANS HIGHER LVL OF CARE FAC Referrals: Greg Gibbons MD [Primary Care Provider] - Additional Instructions: Patient transferred to ER - Billing Disposition and Condition Condition: STABLE Disposition: Trans Higher Lvl of Care Fac
[2019-11-03 15:07] VITALS: BP 131/65
== END 2019-11-03 15:05 | disposition short-term general hospital (02) ==
LOC: UCCORT 14:23
DX: I25.9 Chronic ischemic heart disease, unspecified (principal); I24.9 Acute ischemic heart disease, unspecified; Z95.2 Presence of prosthetic heart valve; Z87.891 Personal history of nicotine dependence; Z91.030 Bee allergy status; Z88.8 Allergy status to other drugs, medicaments and biological substances
CPT/HCPCS: 93005; 99213; A9270-GY; G0463

== ENCOUNTER 2019-11-03 15:47 | Emergency (ER) | payer MEDICARE ==
--- NOTE | 2019-11-03 16:02 | ED ---
Complex/Multi-Sys Presentation - HPI Summary HPI Summary: Patient is a 79 y/o M presenting to the ED via EMS for a chief complaint of dizziness, lightheadedness, and headache. Previously, patient was seen at [facility] for lightheadedness and had an EKG that showed ST depressions and sent to [facility]. The dizziness began on 11/01/19. Patient also notes that his left ear has a blockage for which he used ear drops. Patient denies shortness of breath, chest pain, abdominal pain, nausea, vomiting, diarrhea, bilateral LE pain, bilateral LE edema, chills, fever, cough, sore throat, vision changes, or balance problems. PMHx is significant for deafness in the left ear. PSHx is significant for parathyroidectomy performed on and aortic valve replacement in March 2019. - History Of Current Complaint Chief Complaint: EDDizziness Time Seen by Provider: 11/03/19 15:51 Hx Obtained From: Patient Onset/Duration: Sudden Onset Timing: Constant Severity Currently: Moderate Severity Initially: Moderate Associated Signs And Symptoms: Positive: Dizziness, Headache. Negative: SOB, Cough, Chest Pain, Edema - Bilateral LE, Nausea, Vomiting, Diarrhea, Abdominal Pain, Fever - Allergies/Home Medications Allergies/Adverse Reactions: Allergies Allergy/AdvReac Type Severity Reaction Status Date / Time pseudoephedrine Allergy Unknown Verified 11/03/19 14:33 [From Aleksandra] Reaction Details beesting Allergy Severe anaphylacti Uncoded 11/03/19 14:33 c PMH/Surg Hx/FS Hx/Imm Hx Previously Healthy: Yes Endocrine/Hematology History: Reports: Hx Thyroid Disease - Nodules primary hyperparathyroidism Denies: Hx Anticoagulant Therapy - aspirin, Hx Diabetes - Impaired fasting glycaemia per H&P Cardiovascular History: Reports: Hx Coronary Artery Disease, Hx Hypercholesterolemia, Hx Hypotension, Hx Peripheral Vascular Disease, Hx Syncope , 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, 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 per H&P, Other Cardiovascular Problems/Disorders - Hypercholesterolemia Denies: Hx Angina, Hx Congestive Heart Failure, Hx Deep Vein Thrombosis, Hx Hypertension, Hx Myocardial Infarction, Hx Pacemaker/ICD Respiratory History: Denies: Hx Asthma, Hx Chronic Obstructive Pulmonary Disease (COPD), Hx Lung Cancer, Hx Pneumonia, Hx Pulmonary Embolism, Hx Sleep Apnea, Other Respiratory Problems/Disorders GI History: Reports: Hx Diverticulosis, Other GI Disorders - Diverticular disease of colon per H&P Denies: Hx Cirrhosis, Hx Crohn's Disease, Hx Gall Bladder Disease, Hx Gastrointestinal Bleed, Hx Irritable Bowel, Hx Ulcer, Hx Urosepsis History: Reports: Hx Benign Prostatic Hyperplasia, Other Problems/ Disorders - Enlarged prostate-on flomax Denies: Hx Chronic Renal Failure, Hx Dialysis, Hx Kidney Stones, Hx Renal Disease Musculoskeletal History: Reports: Hx Arthritis - Osteoarthritis shoulder region , Hx Back Problems, Hx Bursitis - Right subacromial bursitis per H&P, Hx Tendonitis, Other Musculoskeletal History - Carpal Tunnel-bilateral surgery 2010 & 2011 Denies: Hx Osteoporosis, Hx Scoliosis Sensory History: Reports: Hx Contacts or Glasses - Glasses, Hx Deafness - Left ear, Hx Hearing Aid - Right ear hearing aid-deaf in left ear, Hx Hearing Problem Denies: Hx Cataracts Opthamlomology History: Reports: Hx Contacts or Glasses - Glasses Denies: Hx Cataracts EENT History: Reports: Hx Deafness - Left ear, Hx Hearing Problem, Hx Hearing Aid - Right ear Neurological History: Reports: Other Neuro Impairments/Disorders - Hx of going to PAIN CLINIC Denies: Hx Dementia, Hx Headaches, Hx Migraine, Hx Seizures, Hx Transient Ischemic Attacks (TIA) Psychiatric History: Reports: Hx Depression - while going to pain clinic Denies: Hx Anxiety - while going to pain clinic,stated was very anxiety and stress producing, Hx Panic Disorder, Hx Schizophrenia, Hx Bipolar Disorder - Cancer History Cancer Type, 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 Parathyroid removed 10/28/19. L4-5 laminectomy 09/25/18 [facility]. Bilateral Carpal Tunnel 2010 & 2011. Appendectomy 1950. Left Inguinal Hernia 1998 Hx Anesthesia Reactions: No Infectious Disease History: No Infectious Disease History: Denies: Hx Hepatitis, Hx Human Immunodeficiency Virus (HIV), History Other Infectious Disease, Traveled Outside the in Last 30 Days - Family History Known Family History: Positive: Cardiac Disease, Diabetes Negative: Hypertension - Social History Occupation: Retired Lives: With Family Alcohol Use: None Alcohol Amount: 1 drink/wk Hx Substance Use: No Substance Use Type: Reports: None Hx Tobacco Use: Yes Smoking Status (MU): Former Smoker Type: Cigarettes Amount Used/How Often: off and on for 10 years Length of Time of Smoking/Using Tobacco: 9 - 1967 Have You Smoked in the Last Year: No Review of Systems Negative: Fever, Chills Negative: Other - Negative vision changes Negative: Sore Throat Negative: Chest Pain Negative: Shortness Of Breath, Cough Negative: Abdominal Pain, Vomiting, Diarrhea, Nausea Negative: Myalgia - Bilateral LE, Edema - Bilateral LE Neurological: Other - Positive lightheadedness and dizziness; negative balance problems Positive: Headache All Other Systems Reviewed And Are Negative: Yes Physical Exam - Summary Physical Exam Summary: Constitutional: Well-developed, Well-nourished, Alert. (-) Distressed Skin: Warm, Dry HENT: Normocephalic; Atraumatic. Deaf in the left ear, hearing loss in the right , right-sided hearing aid, no evidence of ear infection. Eyes: Conjunctiva normal Neck: Musculoskeletal ROM normal neck. (-) JVD, (-) Stridor, (-) Tracheal deviation Cardio: Rhythm regular, rate normal, Heart sounds normal; Intact distal pulses; The pedal pulses are 2+ and symmetric. Radial pulses are 2+ and symmetric. (-) Murmur Pulmonary/Chest wall: Effort normal. (-) Respiratory distress, (-) Wheezes, (-) Rales Abd: Soft, (-) tenderness, (-) Distension, (-) Guarding, (-) Rebound Musculoskeletal: (-) Edema Lymph: (-) Cervical adenopathy Neuro: Alert, Oriented x3 Psych: Mood and affect Normal Triage Information Reviewed: Yes Vital Signs On Initial Exam: Initial Vitals Temp Pulse Resp BP Pulse Ox 98.9 F 55 16 147/74 97 11/03/19 15:50 11/03/19 15:50 11/03/19 15:50 11/03/19 15:50 11/03/19 15:50 Vital Signs Reviewed: Yes Procedures - Sedation Patient Received Moderate/Deep Sedation with Procedure: No Diagnostics - Vital Signs Vital Signs Temp Pulse Resp BP Pulse Ox 11/03/19 15:50 98.9 F 55 16 147/74 97 - Laboratory Result Diagrams: 11/03/19 16:15 11/03/19 16:15 Lab Statement: Any lab studies that have been ordered have been reviewed, and results considered in the medical decision making process. - EKG 15:47 Cardiac Rate: Bradycardia - 56 BPM EKG Rhythm: Sinus Bradycardia ST Segment: Normal Ectopy: None Summary of EKG Findings: EKG at 15:47 shows sinus bradycardia with 56 PM, no STEMI, otherwise normal EKG. Dr. Rodriguez has reviewed and interpreted this EKG. Complex Multi-Symp Course/Dx Course Of Treatment: Patient is a 79 y/o M presenting to the ED via EMS for a chief complaint of dizziness, lightheadedness, and headache. Previously, patient was seen at [facility] for lightheadedness and had an EKG that showed ST depressions and sent to [facility]. The dizziness began on 11/01/19. Patient also notes that his left ear has a blockage for which he used ear drops. Patient denies shortness of breath, chest pain, abdominal pain, nausea, vomiting, diarrhea, bilateral LE pain, bilateral LE edema, chills, fever, cough , sore throat, vision changes, or balance problems. PMHx is significant for deafness in the left ear. PSHx is significant for parathyroidectomy performed on 10/28/19 and aortic valve replacement in March 2019. On exam, deaf in the left ear, hearing loss in the right, right-sided hearing aid, no evidence of ear infection. In the ED course, patient was given IV fluids. EKG at 15:47 shows sinus bradycardia with 56 PM, no STEMI, otherwise normal EKG. Laboratory abnormal findings: RBC 3.81, Hgb 13, Hct 37, MCV 96, MCH 34, plt count 144, absolute monos 1, calcium 8.5. Patient will be discharged with a diagnosis of dizziness. Follow up with PCP in 1-2 days. - Diagnoses Provider Diagnoses: Dizziness Discharge ED - Sign-Out/Discharge Documenting (check all that apply): Patient Departure - Discharge - Discharge Plan Condition: Stable Disposition: HOME Patient Education Materials: Dizziness (ED) Referrals: Greg Gibbons MD [Primary Care Provider] - Additional Instructions: RETURN TO THE EMERGENCY DEPARTMENT FOR CHANGING OR WORSENING SYMPTOMS. Follow up with your primary care physician in 1-2 days. - Billing Disposition and Condition Condition: STABLE Disposition: Home - Attestation Statements Document Initiated by Scribe: Yes Documenting Scribe: Breana Dasilva Provider For Whom Scribe is Documenting (Include Credential): Roman Rodriguez DO Scribe Attestation: I, Breana Dasilva, scribed for Roman Rodriguez DO on 11/03/19 at 2034. Scribe Documentation Reviewed: Yes Provider Attestation: The documentation as recorded by the scribe, Breana Dasilva accurately reflects the service I personally performed and the decisions made by me, Roman Rodriguez DO Status of Scribe Document: Viewed
[2019-11-03] MEDS ORDERED: NS 0.9% 1000 ML** 1,000 ML IV ONE (16:05)
[2019-11-03 16:24] LABS: ABS Basophils 0.1 10^3/ul (0-0.2); ABS Eosinophils 0.1 10^3/ul (0-0.6); ABS Lymphocytes 1.1 10^3/ul (1.0-4.8); ABS Neutrophils 2.2 10^3/ul (1.5-7.7); Eosinophil % 1.6 %; Hematocrit 37 % (42-52); Lymphocyte % 25.2 %; Mean Corpuscular HGB Conc 36 g/dL (31-36); Mean Corpuscular Hemoglobin 34 pg (27-31); Mean Corpuscular Volume 96 fL (80-94); Mean Platelet Volume 8.4 fL (7.4-10.4); Platelet Count 144 10^3/uL (150-450); Red Blood Count 3.81 10^6 /uL (4.18-5.48); Red Cell Distribution Width 13 % (10-15); White Blood Count 4.5 10^3/uL (3.5-10.8)
[2019-11-03 16:39] LABS: Albumin 4.1 g/dL (3.2-5.2); Albumin/Globulin Ratio 1.8 (1-3); BUN/Creatinine Ratio 17.7 (8-20); C Reactive Protein 5.79 mg/L (<8.01); Calcium 8.5 mg/dL (8.6-10.3); EGFR African American 91.4 (>60); EGFR Non-African American 75.6 (>60); Globulin 2.3 g/dL (2-4); Potassium 4.2 mmol/L (3.5-5.0); Total Bilirubin 0.5 mg/dL (0.2-1.0); Total Protein 6.4 g/dL (6.4-8.9)
[2019-11-03 17:13] LABS: Troponin I 0.01 ng/mL (<0.03)
[2019-11-03 17:54] VITALS: BP 165/78
== END 2019-11-03 18:03 | disposition home or self-care (01) ==
LOC: ED 15:47
DX: R42 Dizziness and giddiness (principal); E21.3 Hyperparathyroidism, unspecified; I25.10 Atherosclerotic heart disease of native coronary artery without angina pectoris; E78.00 Pure hypercholesterolemia, unspecified; I73.9 Peripheral vascular disease, unspecified; N40.0 Benign prostatic hyperplasia without lower urinary tract symptoms; Z85.820 Personal history of malignant melanoma of skin; Z95.2 Presence of prosthetic heart valve; Z90.89 Acquired absence of other organs; Z87.891 Personal history of nicotine dependence; Z88.8 Allergy status to other drugs, medicaments and biological substances
CPT/HCPCS: 36415; 80053; 83735; 84484; 85025; 86140; 93005; 96360; 99282